=== PATIENT | male | born 1950 | race Caucasian/White ===

== ENCOUNTER → 2020-02-10 10:04 | Outpatient (BNVA) | payer MEDICARE, MEDICAID, SELFPAY | PROVIDERS: PCP Internal Medicine; Referring Provider Internal Medicine; Visit Provider Urology | DX: Z76.89 Persons encountering health services in other specified circumstances (principal) ==

== ENCOUNTER → 2020-08-11 11:47 | Outpatient (BNVA) | payer MEDICARE, MEDICAID, SELFPAY | PROVIDERS: PCP Internal Medicine; Visit Provider Urology | DX: Z13.89 Encounter for screening for other disorder (principal) | CPT/HCPCS: Q3014 ==

== ENCOUNTER → 2020-09-14 11:45 | Outpatient (BNVA) | payer MEDICARE, MEDICAID, SELFPAY | PROVIDERS: PCP Internal Medicine; Visit Provider Urology | DX: C61 Malignant neoplasm of prostate (principal); E29.1 Testicular hypofunction; R39.15 Urgency of urination; Z92.3 Personal history of irradiation | CPT/HCPCS: Q3014 ==

== ENCOUNTER → 2020-10-21 11:15 | Outpatient (BNVA) | payer MEDICARE, MEDICAID, SELFPAY | PROVIDERS: Visit Provider Urology | CPT/HCPCS: Q3014 ==

== ENCOUNTER → 2021-04-22 11:35 | Outpatient (BNVA) | payer MEDICARE, MEDICAID, SELFPAY | PROVIDERS: PCP Internal Medicine; Visit Provider Urology | DX: N30.40 Irradiation cystitis without hematuria (principal); C61 Malignant neoplasm of prostate | CPT/HCPCS: Q3014 ==

== ENCOUNTER 2021-05-03 08:52 | Outpatient (RCR) | payer MEDICARE, MEDICAID, SELFPAY | END 2021-06-22 10:14 | disposition home or self-care (01) | LOC: HO.WCC 08:52 | PROVIDERS: PCP Internal Medicine; Visit Provider Physician Assistant | DX: N30.40 Irradiation cystitis without hematuria (principal); G62.9 Polyneuropathy, unspecified; Z85.46 Personal history of malignant neoplasm of prostate; Z87.891 Personal history of nicotine dependence | CPT/HCPCS: 99213 ==

== ENCOUNTER → 2021-06-01 14:43 | Outpatient (BNVA) | payer MEDICARE, MEDICAID, SELFPAY | PROVIDERS: PCP Internal Medicine; Visit Provider Urology | DX: N42.89 Other specified disorders of prostate (principal); N30.40 Irradiation cystitis without hematuria; R39.15 Urgency of urination; Z85.46 Personal history of malignant neoplasm of prostate | CPT/HCPCS: 52000; 99212 ==

== ENCOUNTER → 2021-07-19 12:02 | Outpatient (BNVA) | payer MEDICARE, MEDICAID, SELFPAY | PROVIDERS: PCP Internal Medicine; Visit Provider Urology | DX: N42.89 Other specified disorders of prostate (principal) | CPT/HCPCS: Q3014 ==

== ENCOUNTER 2021-07-25 06:35 | Day surgery (SDC) | payer MEDICARE, MEDICAID, SELFPAY ==
[2021-07-15 14:42] VITALS: BMI 36.9
--- NOTE | 2021-07-22 09:18 | P.CONAN_ITS ---
Documented by User: Paula Jorge NP 07/22/21 09:19 HPI - Anesthesia Eval Consult details Narrative: 71yo M for Cystoscopy DVIU Chronic opioids PMFSH Active Problems Active Problems: All Active Problems (Updated 06/01/21 @ 15:24 by Theo Hutchins MD) Prostate cancer (Acute) Hypogonadism in male (Acute) Urinary urgency (Acute) Radiation cystitis (Acute) Prostate stricture (Acute) Past Medical History Medical History Acute bilateral low back pain without sciatica BPH (benign prostatic hyperplasia) Chronic back pain Dysuria Elevated PSA Erectile dysfunction GERD (gastroesophageal reflux disease) Hyperlipidemia Hypogonadism in male Hypothyroidism Nocturia OA (osteoarthritis) Prostate cancer Prostatitis Recurrent urinary tract infection Sleep apnea Surgical History Surgical History History of prostate surgery Hx of arthroscopy of knee Hx of hernia repair Hx of prostate biopsy Social History Social History Patient Tobacco Use Status: Former Tobacco user Are you DNR?: No Advance Directives: No Advance Directives Information Provided: Yes Meds Allergies Allergy/AdvReac Type Severity Reaction Status Date / Time codeine [Tylenol-Codeine #3] Allergy Mild unknown Verified 07/19/21 12:03 Iodinated Contrast Media Allergy Mild HIVES Verified 07/19/21 12:03 [IV CONTRAST] Home Medications Medication Instructions Recorded Confirmed Last Taken Type carisoprodol 350 mg tablet 350 mg PO BID PRN 08/11/20 07/15/21 Unknown History fluticasone propionate 50 1 spray INTRANASAL DAILY 08/11/20 07/15/21 Unknown History mcg/actuation nasal spray,suspension hydrocodone 10 mg-acetaminophen 1 tab PO QID PRN 08/11/20 07/15/21 Unknown History 325 mg tablet hydroxyzine pamoate 25 mg capsule 25 mg PO DAILY PRN 08/11/20 07/15/21 Unknown History levothyroxine 112 mcg tablet 224 mcg PO QAM 08/11/20 07/15/21 07/25/21 History omeprazole 40 mg capsule,delayed 40 mg PO DAILY 08/11/20 07/15/21 Unknown History release zolpidem 10 mg tablet 10 mg PO BEDTIME PRN 08/11/20 07/15/21 Unknown History albuterol sulfate 90 mcg/actuation 1 puff PO QID PRN 09/14/20 07/15/21 Unknown History aerosol inhaler amoxicillin 875 mg-potassium 1 tab PO BID 09/14/20 10/21/20 Unknown History clavulanate 125 mg tablet celecoxib 200 mg capsule 200 mg PO BID 09/14/20 07/15/21 Unknown History prednisone 20 mg tablet 60 mg PO DAILY 09/14/20 07/15/21 Unknown History doxepin 10 mg capsule 10 mg PO BEDTIME 06/01/21 07/15/21 Unknown History Exam Exam Date and Time: July 22, 2021 0918 Height,Weight and Vital Signs: Height 5 ft 11 in Weight 120.202 kg Assessment and Plan Assessment Anesthesia Assessment: Chart Reviewed Documented by User: Yeni Wray MD 07/25/21 07:23 [facility] Past Medical History Medical History Acute bilateral low back pain without sciatica BPH (benign prostatic hyperplasia) Chronic back pain Dysuria Elevated PSA Erectile dysfunction GERD (gastroesophageal reflux disease) Hyperlipidemia Hypogonadism in male Hypothyroidism Nocturia OA (osteoarthritis) Prostate cancer Prostatitis Recurrent urinary tract infection Sleep apnea Family History Family history of problems with anesthesia: No Surgical History Surgical History History of prostate surgery Hx of arthroscopy of knee Hx of hernia repair Hx of prostate biopsy History of Problems with Anesthesia: No Social History Social History Patient Tobacco Use Status: Former Tobacco user Are you DNR?: No Advance Directives: No Advance Directives Information Provided: Yes Meds Allergies Allergy/AdvReac Type Severity Reaction Status Date / Time codeine [Tylenol-Codeine #3] Allergy Mild unknown Verified 07/19/21 12:03 Iodinated Contrast Media Allergy Mild HIVES Verified 07/19/21 12:03 [IV CONTRAST] Home Medications Medication Instructions Recorded Confirmed Last Taken Type carisoprodol 350 mg tablet 350 mg PO BID PRN 08/11/20 07/15/21 Unknown History fluticasone propionate 50 1 spray INTRANASAL DAILY 08/11/20 07/15/21 Unknown History mcg/actuation nasal spray,suspension hydrocodone 10 mg-acetaminophen 1 tab PO QID PRN 08/11/20 07/15/21 Unknown History 325 mg tablet hydroxyzine pamoate 25 mg capsule 25 mg PO DAILY PRN 08/11/20 07/15/21 Unknown History levothyroxine 112 mcg tablet 224 mcg PO QAM 08/11/20 07/15/21 07/25/21 History omeprazole 40 mg capsule,delayed 40 mg PO DAILY 08/11/20 07/15/21 Unknown History release zolpidem 10 mg tablet 10 mg PO BEDTIME PRN 08/11/20 07/15/21 Unknown History albuterol sulfate 90 mcg/actuation 1 puff PO QID PRN 09/14/20 07/15/21 Unknown History aerosol inhaler amoxicillin 875 mg-potassium 1 tab PO BID 09/14/20 10/21/20 Unknown History clavulanate 125 mg tablet celecoxib 200 mg capsule 200 mg PO BID 09/14/20 07/15/21 Unknown History prednisone 20 mg tablet 60 mg PO DAILY 09/14/20 07/15/21 Unknown History doxepin 10 mg capsule 10 mg PO BEDTIME 06/01/21 07/15/21 Unknown History Exam Airway Mallampati Class: II TM Dist: >3cm Neck ROM: Full Denture: Upper and Lower Heart: rrr Lungs: cta Assessment and Plan Assessment Anesthesia Assessment: Anesthesia Plan Discussed and Chart Reviewed Final Anesthetic Review Family History of Problems with Anesthesia: No History of Problems with Anesthesia: No NPO: Yes ASA Class: III Final Preanesthetic Review: No Changes in Pt Med Stat, Meds/Allgs Chart Reviewed and Consent Obtained/Reviewed Patient Risk: Intermediate Procedure Risk: Intermediate Anesthetic Plan Anesthetic Plan: GA Disposition: Standard PACU
[2021-07-25 06:43] VITALS: BP 151/86; PULSE 69; RESP 18; TEMP 36; O2SAT 95
[2021-07-25] MEDS: Lactated Ringers 1,000 ML 100 ML IVCONT (07:11)
--- NOTE | 2021-07-25 08:38 | MHC.SHP ---
Pre-Procedural Eval Section A Date of Service: 07/25/21 The patient is an INPATIENT: No Changes since office visit: No Cold of Flu in the past 2 weeks, No New Medical Problems, No Changes in Medication and No Patient answered all questions The History & Physical has been completed within 30 days and I have reviewed it.: Yes Section B Chief Complaint: Other specified disorders of prostate Allergies: Allergies Allergy/AdvReac Type Severity Reaction Status Date / Time codeine [Tylenol-Codeine #3] Allergy Mild unknown Verified 07/19/21 12:03 Iodinated Contrast Media Allergy Mild HIVES Verified 07/19/21 12:03 [IV CONTRAST] Plan Diagnosis/Plan: Unchanged (prostate apex incision) I have reviewed the history and physical and performed a pertinent physical examination on my patient. No changes have occurred unless specified.
[2021-07-25 09:20] VITALS: BP 104/70; PULSE 76; RESP 16; TEMP 36.3; O2SAT 95
--- NOTE | 2021-07-25 09:20 | W.PM.OPN ---
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 Subsequent diagnosis of prostate cancer and external beam radiation completed approximately 3 years ago. Has had progressive weakness of stream. Cystoscopy in office showed apical prostatic stricture. Recommend DVIU given short length of stricture. Procedure: After informed consent was verified the patient was brought to the operating room and placed in a supine position. Anesthesia was administered per protocol. Safety pause time-out was performed confirming antibiotics. The patient was placed in a modified dorsal lithotomy position and prepped and draped sterile fashion. The DVIU cystoscope was inserted. A bulbar annual is stricture was found. Incision made at 12:00 o'clock and the scope was advanced. A 2nd stricture was found at the prostate apex. Again incision made at 12:00 o'clock allowing passage of scope into the bladder. Bladder was drained. Sensor guidewire was placed. A 20 [place] tip Phipps catheter placed over the wire into the bladder and 10 cc placed in the balloon. Patient tolerated the procedure well was extubated in the operating room and transferred in stable condition to recovery area. Catheter will stay 3-4 days Pathology: none Drains: 20 Indonesian Phipps catheter
[2021-07-25 09:35] VITALS: BP 115/77; PULSE 71; RESP 16; O2SAT 96
[2021-07-25] MEDS: Phenazopyridine HCL 100 MG TABLET PO (09:42)
[2021-07-25 09:50] VITALS: BP 114/76; PULSE 64; RESP 16; TEMP 36.3; O2SAT 96
[2021-07-25] MEDS: oxyCODONE HCl Immed Release 5 MG TABLET PO (09:52)
[2021-07-25] MEDS: Acetaminophen 325 MG TABLET 650 MG PO (09:53)
== END 2021-07-25 10:35 | disposition home or self-care (01) ==
PROVIDERS: PCP Internal Medicine; Visit Provider Urology
PROC: 0TJB8ZZ Inspection of Bladder, Via Natural or Artificial Opening Endoscopic (ICD-10-PCS; CPT 52000; principal; 2021-07-25 08:10)
DX: N42.89 Other specified disorders of prostate (principal); N35.912 Unspecified bulbous urethral stricture, male; N40.1 Benign prostatic hyperplasia with lower urinary tract symptoms; R39.12 Poor urinary stream; R35.1 Nocturia; R30.0 Dysuria; N30.40 Irradiation cystitis without hematuria; N52.9 Male erectile dysfunction, unspecified; N39.0 Urinary tract infection, site not specified; Z85.46 Personal history of malignant neoplasm of prostate; Z92.3 Personal history of irradiation; G89.29 Other chronic pain; M54.50 Low back pain, unspecified; G47.33 Obstructive sleep apnea (adult) (pediatric); Z88.8 Allergy status to other drugs, medicaments and biological substances; Z91.041 Radiographic dye allergy status; Z87.891 Personal history of nicotine dependence; Z79.899 Other long term (current) drug therapy
CPT/HCPCS: 52276; J1956; J2250; J2405; J3010

== ENCOUNTER → 2021-10-27 09:59 | Outpatient (BNVA) | payer MEDICARE, MEDICAID, SELFPAY | PROVIDERS: PCP Internal Medicine; Visit Provider Urology | DX: C61 Malignant neoplasm of prostate (principal); E29.1 Testicular hypofunction; N42.89 Other specified disorders of prostate; N32.81 Overactive bladder | CPT/HCPCS: 99212 ==

== ENCOUNTER → 2022-04-26 13:39 | Outpatient (BNVA) | payer MEDICARE, MEDICAID, SELFPAY | PROVIDERS: PCP Internal Medicine; Visit Provider Urology | DX: C61 Malignant neoplasm of prostate (principal); E29.1 Testicular hypofunction; R39.15 Urgency of urination; N30.40 Irradiation cystitis without hematuria | CPT/HCPCS: Q3014 ==

== ENCOUNTER 2022-08-04 11:06 | Outpatient (REF) | payer MEDICARE, MEDICAID, SELFPAY | END 2022-08-04 11:07 | disposition home or self-care (01) | LOC: HO.LNP 11:06 | PROVIDERS: PCP Internal Medicine; Visit Provider Nurse Practitioner Family | DX: R39.15 Urgency of urination (principal); E29.1 Testicular hypofunction; C61 Malignant neoplasm of prostate; N30.40 Irradiation cystitis without hematuria | CPT/HCPCS: 87086; 87088; 87186; 99212 ==

== ENCOUNTER 2022-09-19 09:54 | Outpatient (REF) | payer MEDICARE, MEDICAID, SELFPAY ==
--- NOTE | ~2022-09-19 | US_ITS ---
EXAMINATION: US RETROPERITONEAL COMPLETE (RENAL) CLINICAL INFORMATION: Irradiation cystitis without hematuria. COMPARISON: None available. TECHNIQUE: Real-time imaging of the kidneys and bladder. FINDINGS: RIGHT KIDNEY: 11.5 x 6.0 x 5.8 cm (SAG x AP x TRV). The kidney is normal in size, contour, and echogenicity. Renal cortical thickness is normal. No renal calculi or hydronephrosis. 7 mm simple cyst in the lower pole. 1.2 cm simple cyst in the lower pole. No follow-up imaging is recommended. LEFT KIDNEY: 12.4 x 5.9 x 5.4 cm (SAG x AP x TRV). The kidney is normal in size, contour, and echogenicity. Renal cortical thickness is normal. No renal calculi or hydronephrosis. 6 mm simple cyst in the lower pole. No follow-up imaging is recommended. BLADDER: Well distended and normal. Bilateral ureteral jets are demonstrated. Prevoid bladder volume is 229 mL. Postvoid bladder volume is 88.7 mL. Enlarged prostate, volume 39.4 mL. US/US retroperitoneal comp IMPRESSION: Enlarged prostate. No hydronephrosis. Post void bladder residual 89 mL.
[2022-09-19 11:49] LABS: Appearance Urine Clear; Color Urine Yellow; Glucose Urine UA Negative (Negative); Leukocyte Esterase Urine Negative (Negative); Nitrite Urine Negative (Negative); Specific Gravity - Urine 1.015 (1.005-1.025); Urine Blood Negative (Negative); Urine Ketones Negative (Negative); Urine Protein Negative (Neg-Trace)
[2022-09-19 11:53] LABS: Bacteria Urine None Seen (None Seen); Hyaline Casts Urine 0-2 /LPF (0-2); RBC Urine 0-2 /HPF (0-2); Squamous Epithelial Cell Urine 0-2 /HPF (0-2); WBC Urine 0-5 /HPF (0-5)
[2022-09-19 12:13] LABS: Prostate Specific Antigen 0.28 ng/mL (<0.05-4.0)
[2022-09-23 14:49] LABS: Testosterone, Total 277 ng/dL (250-1100)
[2022-09-23 17:34] LABS: Testosterone, Free 38.2 pg/mL (30.0-135.0); Testosterone, Total 279 ng/dL (250-1100)
== END 2022-09-19 09:55 | disposition home or self-care (01) ==
LOC: HO.US 09:54
PROVIDERS: Absent Provider Urology; PCP Internal Medicine; Visit Provider Nurse Practitioner Family
DX: Z12.5 Encounter for screening for malignant neoplasm of prostate (principal); N30.40 Irradiation cystitis without hematuria; R39.15 Urgency of urination; E29.1 Testicular hypofunction; C61 Malignant neoplasm of prostate
CPT/HCPCS: 36415; 76770; 81001; 84153; 84402; 84403; 87086

== ENCOUNTER 2022-09-25 09:53 | Outpatient (AMB) | payer MEDICARE, MEDICAID, SELFPAY ==
--- NOTE | 2022-09-25 09:59 | A.OFFVIS_ITS ---
Intake Intake Visit Reasons: follow up/US/labs Intake Note: Patient presents follow up ultrasound/labs (imaging 09/19) Urology Medications: myrbetriq, testosterone Blood Thinner: none PVR: 30ml Study Manager Required: No Accompanied by: Self / Same As Patient Allergies codeine [Tylenol-Codeine #3] Allergy (Mild, Verified 09/25/22 20:25) unknown Iodinated Contrast Media [IV CONTRAST] Allergy (Mild, Verified 09/25/22 20:25) HIVES Medication List - Last Reconciled 09/25/22 by TJ Rodriguez- albuterol sulfate 90 mcg/actuation 1 puff PO QID PRN carisoprodol 350 mg PO BID PRN diclofenac sodium 1% 4 grams topical TID doxepin 10 mg PO BEDTIME fluticasone propionate 50 mcg/actuation 1 spray intranasal DAILY hydroxyzine pamoate 25 mg PO DAILY PRN levothyroxine 200 mcg PO QAM mirabegron ER 25 mg PO DAILY 90 days omeprazole 40 mg PO DAILY PRN testosterone 50 mg transdermal DAILY 30 days zolpidem 10 mg PO BEDTIME PRN HPI HPI Comments History of Present Illness Details Ralph is a very pleasant 72-year-old male patient of Dr. Hernández. He has a past medical history of chronic back pain, ED, GERD, hyperlipidemia, hypothyroidism, nocturia, osteoarthritis, prostatitis, recurrent urinary tract infections, and sleep apnea. He presents to the office today for follow-up. Of note, patient was seen approximately 2 months ago at which time a retroperitoneal, PSA, and testosterone ordered for further assessment evaluation. These results were reviewed with the patient today. Right kidney with no calculi or hydronephrosis. 7 mm simple cyst in the lower pole and 1.2 cm simple cyst in the lower pole per radiology report no follow-up imaging is recommended. Left kidney with no calculi or hydronephrosis. 6 mm simple cyst in the lower pole with no follow-up imaging recommended per radiology report. The bladder is well distended and normal. Pre void bladder volume is approximately 230 mL. Postvoid bladder volume is approximately 90 mL. Prostate volume is approximately 40 mL. Labs: 10/11 PSA: 0.3 Total testosterone: 279 Free testosterone: 38.2 Of note, patient also follows up with Dr. 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 When asked patient reports to be doing and feeling well. He does endorse to having intermittent issues with dysuria however he discusses this is not a new symptom and relates it to his radiation cystitis. During last office visit urine was sent for urine culture for further assessment evaluation. No growth noted. These results were reviewed with the patient today. He otherwise reports to be happy with his current voiding parameters on 25 mg of Myrbetriq daily. In office urinalysis results reviewed with the patient today. PVR 30 mL. Patient discusses he would like to continue with his topical testosterone as prescribed. He otherwise offers no issues or concerns at this time. During Last office visit 05/11 PSA 04/13 0.4 T 610 Prostate Cancer: [place] 3 + 4, XRT with short-term hormones 2015 Prostate cancer was diagnosed [address] Tai. Diagnosis was reached by needle biopsy, for elevated PSA. The [place] grade is January 2010 left apex microscopic focus [place] 3+3 . March 2011 negative biopsy April 2012 left apex [place] 3+3 one core 5% September 2014 [place] 3+3 2 cores middle left 20% Volume 95 cc. September 2015 TURP Gl 3+4 in tissue 35%. TNM Classification of Malignant Tumours (TNM) T1a. The D'Kael (NCCN) risk category is Intermediate Risk (PSA 10-20, Gl 7, T2). Initial therapy included Primary treatment, Deferred Therapy (active surveillance) Additional treatment - recommend radiation Sep 2015 start bicalutamide, November 23 2015 - GnRH shot Additional treatment Mar 2016 - stopped oxybutinin and bicalutamide , Additional treatment completed radiation April 2016 , Additional treatment, 12/05 Observation - off 5AR. Recent labs included a PSA (prostate-specific antigen) October 2009 6 .7, December 2009 7.0, September 2010 8.8, in February 2011 11, March 2012 19.5 finasteride started, November 2012 8.9, April 2014 10.6, April 2015 13.5 - bicalutamide started Oct 2015 4.25 July 2016 < 0.1, 12/05 , a PSA (prostate-specific antigen), < 0.1, a testosterone 56 04/08 , a PSA (prostate-specific antigen), < 0.1, a testosterone 111, 08/06 , a PSA (prostate-specific antigen) .2, , a testosterone 124, 12/06 PSA 0.3 T 362 2 PSA 0.3, T 270, 09/06 PSA 0.5 T 175 03/10 PSA 0.5 T 477, 07/08 PSA 0.5 T 560, 02/07 PSA 0.4 - 08/09 PSA 0.5, T 730, 04/12 P 0.6, T 260, 10/10 P 0.6 T 212, 10/11 P 0.3 T 279. Recent imaging included an MRI (magnetic resonance imaging) May 2015 , showing prostatic mass(es) hyperpalsia vs tumor, no evidence of extracapsular spread, I have reviewed the images - Sep 2015 , a bone scan NAD. Associated conditions erectile dysfunction Yes rectal urgency Yes Occasional Therapeutic plan: Remain on T therapy. Current symptoms include Overactive bladder July 2020 trial Flomax - failed prior therapy oxybuytin, vesicare Hypogonadism T did not recover after radiation does response to AndroGel 2 doses PFS Medical History (Reviewed 09/25/22 @ 20:38 by ALEXANDER RodriguezFORMERLY [facility] Acute bilateral low back pain without sciatica BPH (benign prostatic hyperplasia) Chronic back pain Dysuria Elevated PSA Erectile dysfunction GERD (gastroesophageal reflux disease) Hyperlipidemia Hypogonadism in male Hypothyroidism Nocturia OA (osteoarthritis) Prostate cancer Prostatitis Recurrent urinary tract infection Sleep apnea Surgical History History of prostate surgery Hx of arthroscopy of knee Hx of hernia repair Hx of prostate biopsy Social History Patient Tobacco Use Status: Former Tobacco user Review of Systems Const Reports as per HPI Eyes Reports no additional complaints ENT Reports no additional complaints Card Reports as per HPI Resp Reports no additional complaints GI Reports as per HPI Reports as per HPI Musc Reports as per HPI Neuro Reports no additional complaints Psych Reports no additional complaints Endo Reports no additional complaints Nabor/Lymph Reports no additional complaints Aller/Immun Reports no additional complaints Physical Exam Const General: cooperative, comfortable, no acute distress, well developed, alert and awake Orientation/consciousness: patient oriented x3 Limitations: ambulation with cane HEENT Head: Yes normal to inspection, Yes normocephalic and Yes atraumatic Ears: hearing grossly normal bilaterally Eyes General: appearance normal, both eyes and all related structures Neck Neck: Yes normal visual inspection and Yes trachea midline Chest Chest palpation & inspection: normal inspection of the chest Resp Effort & Inspection: normal respiratory effort and able to speak in complete sentences Cardio Rate: regular rate GI Inspection: Yes normal to inspection General: Yes no CVA tenderness Back/Spine/Pelvis Back: no CVA tenderness Skin General skin exam: no rashes or lesions noted Neuro General: patient oriented x3 Extrem General: Yes normal to inspection Psych Appearance: grossly normal and well kempt Mental Status: mental status grossly normal Speech and movement: Normal speech and movement present and Clear speech present Affect: normal affect Attitude: cooperative Thought process: Normal thought process present Thought content: Normal thought content present Insight: Good insight present (Psych) Judgement: Good judgement present (Psych) Office Procedures Post Void Residual Post Residual Void Post Void Residual (PVR): 30 97487-Porb Void Residual by ultrasound Results AMB Urinalysis, Automated UA Leukoctes 0 Skinny/uL Last Edit by Bioparaiso on 09/25/22 10:37 UA Nitrite Last Edit by Bioparaiso on 09/25/22 10:37 UA Urobilinogen 0.2 mg/dL Last Edit by Bioparaiso on 09/25/22 10:37 UA Protein 15 mg/dL Last Edit by Bioparaiso on 09/25/22 10:37 UA pH 6.0 Last Edit by Bioparaiso on 09/25/22 10:37 UA Blood 0 Antonio/uL Last Edit by Bioparaiso on 09/25/22 10:37 UA Specific [place] 1.030 Last Edit by Bioparaiso on 09/25/22 10:37 UA Ketone Negative Last Edit by Bioparaiso on 09/25/22 10:37 UA Bilirubin 1 mg/dL Last Edit by Bioparaiso on 09/25/22 10:37 UA Glucose 0 mg/dL Last Edit by Bioparaiso on 09/25/22 10:37 Results Reviewed Results Reviewed: Laboratory Last Values Urine pH (Auto) 6.0 09/25/22 10:01 Specific [place] (Auto) 1.030 09/25/22 10:01 Urine Protein (Auto) 15 mg/dL 09/25/22 10:01 Glucose (UA)(Auto) 0 mg/dL 09/25/22 10:01 Urine Ketones (Auto) Negative 09/25/22 10:01 Urine Blood (Auto) 0 Antonio/uL 09/25/22 10:01 Urine Bilirubin (Auto) 1 mg/dL 09/25/22 10:01 Urine Urobilinogen (Auto) 0.2 mg/dL 09/25/22 10:01 Leukocyte Esterase (Auto) 0 Skinny/uL 09/25/22 10:01 Date of Service: 09/19/22 EXAMINATION: US RETROPERITONEAL COMPLETE (RENAL) FINDINGS: RIGHT KIDNEY: 11.5 x 6.0 x 5.8 cm (SAG x AP x TRV). The kidney is normal in size, contour, and echogenicity. Renal cortical thickness is normal. No renal calculi or hydronephrosis. 7 mm simple cyst in the lower pole. 1.2 cm simple cyst in the lower pole. No follow-up imaging is recommended. LEFT KIDNEY: 12.4 x 5.9 x 5.4 cm (SAG x AP x TRV). The kidney is normal in size, contour, and echogenicity. Renal cortical thickness is normal. No renal calculi or hydronephrosis. 6 mm simple cyst in the lower pole. No follow-up imaging is recommended. BLADDER: Well distended and normal. Bilateral ureteral jets are demonstrated. Prevoid bladder volume is 229 mL. Postvoid bladder volume is 88.7 mL. Enlarged prostate, volume 39.4 mL. IMPRESSION: Enlarged prostate. No hydronephrosis. Post void bladder residual 89 mL. Assessment & Plan Assessment & Plan (1) Prostate cancer: Code(s): C61 - Malignant neoplasm of prostate (2) Hypogonadism in male: Code(s): E29.1 - Testicular hypofunction (3) Radiation cystitis: Code(s): N30.40 - Irradiation cystitis without hematuria Plan In office urinalysis results reviewed with the patient today. PVR 30 mL. Recent retroperitoneal ultrasound results reviewed with the patient today; as noted above Recent PSA and testosterone results reviewed with the patient today; as noted above. Continue Myrbetriq 25 mg daily as patient reports to be happy with current voiding parameters. Continue testosterone as discussed and prescribed. Educated, instructed, encouraged to continue drinking plenty of water daily. PSA and testosterone in 6 months. Follow-up in 6 months with labs to be completed prior; or sooner with any issues, concerns, and or questions. Orders: Orders Prostate Specific Antigen 6 Months C61 - Malignant neoplasm of prostate, E29.1 - Testicular hypofunction Testosterone, Free/Total 6 Months C61 - Malignant neoplasm of prostate, E29.1 - Testicular hypofunction AMB Urinalysis Automated Today Z13.9 - Encounter for screening, unspecified AMB Post Void Residual by ultrasound Today R39.15 - Urgency of urination Medications: Discontinued nitrofurantoin macrocrystal must administer with a meal/food Discontinued Reason: Patient Completed Course 100 mg PO BID 14 days 28 caps 0RF Patient Instructions: The patient had an opportunity to ask questions regarding the treatment plan. All questions were answered. Physical exam, labs, and imaging were discussed and reviewed in detail. As well as risks, benefits, and discussion of treatment choices. No major barriers to understanding were identified. The patient e xpressed understanding and agreement with the above treatment plan. The patient was made aware they should contact our office by phone for worsening of their current condition, the appearance of new symptoms, or with any questions or concerns. Compliance is encouraged with any medications and follow up testing that is ordered. It is a privilege to be allowed the opportunity to participate in? your urological care.? Again, if you have any questions or concerns If you have any questions or concerns please do not hesitate to contact me. The office is [phone]. This note is constructed using voice recognition software. While every effort has been made to ensure accuracy claims consultant errors may have been included. Yours sincerely, FRANCIA Rodriguez Coding Level of Care Code Est Pt Level 3 (47643) Diagnoses Prostate cancer C61 Hypogonadism in male E29.1 Radiation cystitis N30.40 CPT Codes Post Residual Void - PVR CPT Code: 64062-Zmdd Void Residual by ultrasound ([id number])
== END 2022-09-25 10:52 | disposition home or self-care (01) ==
PROVIDERS: PCP Internal Medicine; Visit Provider Nurse Practitioner Family
DX: C61 Malignant neoplasm of prostate (principal); E29.1 Testicular hypofunction; N30.40 Irradiation cystitis without hematuria
CPT/HCPCS: 99213

== ENCOUNTER → 2022-09-25 09:53 | Outpatient (BNVA) | payer MEDICARE, MEDICAID, SELFPAY | PROVIDERS: PCP Internal Medicine; Visit Provider Nurse Practitioner Family | DX: C61 Malignant neoplasm of prostate (principal); E29.1 Testicular hypofunction; R39.15 Urgency of urination; N52.1 Erectile dysfunction due to diseases classified elsewhere; R35.1 Nocturia; N30.40 Irradiation cystitis without hematuria; Z79.899 Other long term (current) drug therapy | CPT/HCPCS: 51798; 99212 ==

== ENCOUNTER 2023-04-10 13:40 | Outpatient (AMB) | payer MEDICARE, MEDICAID, SELFPAY ==
--- NOTE | 2023-04-10 13:41 | MHC.OFFVIS ---
Intake Intake Visit Reasons: F/U Labs Intake Note: Patient presents today for follow up prostate cancer, hypogonadism, and labs PSA: 0.5 Testosterone: 315 Free Testosterone: 6.81 Urology Medications: myrbetriq, testosterone Blood Thinner: None [employer] Supervisor Required: No Allergies codeine [Tylenol-Codeine #3] Allergy (Mild, Verified 04/10/23 15:05) unknown Iodinated Contrast Media [IV CONTRAST] Allergy (Mild, Verified 04/10/23 15:05) HIVES Medication List - Last Reconciled 04/10/23 by TJ Rodriguez- albuterol sulfate 90 mcg/actuation 1 puff PO QID PRN carisoprodol 350 mg PO BID PRN diclofenac sodium 1% 4 grams topical TID doxepin 10 mg PO BEDTIME fluticasone propionate 50 mcg/actuation 1 spray intranasal DAILY PRN hydroxyzine pamoate 25 mg PO DAILY PRN levothyroxine 200 mcg PO QAM mirabegron ER 25 mg PO DAILY 90 days omeprazole 40 mg PO DAILY PRN testosterone 50 mg transdermal DAILY 30 days zolpidem 10 mg PO BEDTIME PRN HPI HPI Comments History of Present Illness Details Ralph is a very pleasant 72-year-old male patient of Dr. Hernández. He has a past medical history of chronic back pain, ED, GERD, hyperlipidemia, hypothyroidism, nocturia, osteoarthritis, prostatitis, recurrent urinary tract infections, and sleep apnea. He is being followed up on today via video telehealth for his history of prostate cancer, hypogonadism, and lower urinary tract symptoms. In discussion with the patient today he reports to be doing and feeling well. Recent labs reviewed and trended with the patient below. PSA: 04/13 0.4, 10/11 0.3, 04/14 0.5 Total testosterone: 04/13 610, 10/11 279, 04/14 315 Free testosterone: 10/11 38.2, 04/14 6.81 Previous workup has included a retroperitoneal ultrasound noting right kidney with no calculi or hydronephrosis. 7 mm simple cyst in the lower pole and 1.2 cm simple cyst in the lower pole per radiology report no follow-up imaging is recommended. Left kidney with no calculi or hydronephrosis. 6 mm simple cyst in the lower pole with no follow-up imaging recommended per radiology report. The bladder is well distended and normal. Pre void bladder volume is approximately 230 mL. Postvoid bladder volume is approximately 90 mL. Prostate volume is approximately 40 mL. He reports to be following up with PCP regarding ongoing sleep apnea issues. He reports having trialed four different CPAP machines and has been unsuccessful in attempts to finding a machine that works for him. He reports getting referral for further assessment for nuerostimulation for sleep apnea. He also reports having 2 episodes of stress incontinence since his last office visit here however he does feel Myrbetriq has been helpful with his symptoms of urinary frequency and urinary urgency. He otherwise reports be happy with current voiding parameters. He reports compliance with topical testosterone as prescribed. He otherwise offers no issues or concerns at this time. Prostate Cancer: [place] 3 + 4, XRT with short-term hormones 2015 Prostate cancer was diagnosed [address] Tai. Diagnosis was reached by needle biopsy, for elevated PSA. The [place] grade is January 2010 left apex microscopic focus [place] 3+3 . March 2011 negative biopsy April 2012 left apex [place] 3+3 one core 5% September 2014 [place] 3+3 2 cores middle left 20% Volume 95 cc. September 2015 TURP Gl 3+4 in tissue 35%. TNM Classification of Malignant Tumours (TNM) T1a. The D'Kael (NCCN) risk category is Intermediate Risk (PSA 10-20, Gl 7, T2). Initial therapy included Primary treatment, Deferred Therapy (active surveillance) Additional treatment - recommend radiation Sep 2015 start bicalutamide, November 23 2015 - GnRH shot Additional treatment Mar 2016 - stopped oxybutinin and bicalutamide , Additional treatment completed radiation April 2016 , Additional treatment, 12/05 Observation - off 5AR. Recent labs included a PSA (prostate-specific antigen) October 2009 6.7, December 2009 7.0, September 2010 8.8, in February 2011 11, March 2012 19.5 finasteride started, November 2012 8.9, April 2014 10.6, April 2015 13.5 - bicalutamide started Oct 2015 4.25 July 2016 < 0.1, 12/05 , a PSA (prostate-specific antigen), < 0.1, a testosterone 56 04/08 , a PSA (prostate-specific antigen), < 0.1, a testosterone 111, 08/06 , a PSA (prostate-specific antigen) .2, , a testosterone 124, 12/06 PSA 0.3 T 362 04/09 PSA 0.3, T 270, 09/06 PSA 0.5 T 175 03/10 PSA 0.5 T 477, 07/08 PSA 0.5 T 560, 02/07 PSA 0.4 - 08/09 PSA 0.5, T 730, 04/12 P 0.6, T 260, 10/10 P 0.6 T 212, 10/11 P 0.3 T 279. Recent imaging included an MRI (magnetic resonance imaging) May 2015 , showing prostatic mass(es) hyperpalsia vs tumor, no evidence of extracapsular spread, I have reviewed the images - Sep 2015 , a bone scan NAD. Associated conditions erectile dysfunction Yes rectal urgency Yes Occasional Therapeutic plan: Remain on T therapy. Current symptoms include Overactive bladder July 2020 trial Flomax - failed prior therapy oxybuytin, vesicare Hypogonadism T did not recover after radiation does response to AndroGel 2 doses Obesity PFSH Medical History Recurrent urinary tract infection Prostatitis OA (osteoarthritis) Sleep apnea Hyperlipidemia GERD (gastroesophageal reflux disease) Chronic back pain Hypothyroidism Acute bilateral low back pain without sciatica Hypogonadism in male Dysuria Nocturia Elevated PSA BPH (benign prostatic hyperplasia) Erectile dysfunction Prostate cancer Surgical History History of prostate surgery Hx of arthroscopy of knee Hx of prostate biopsy Hx of hernia repair Social History Patient Tobacco Use Status: Former Tobacco user Review of Systems Const Reports as per HPI Eyes Reports no additional complaints ENT Reports no additional complaints Card Reports as per HPI Resp Reports no additional complaints GI Reports as per HPI Reports as per HPI Musc Reports as per HPI Neuro Reports no additional complaints Psych Reports no additional complaints Endo Reports no additional complaints Nabor/Lymph Reports no additional complaints Aller/Immun Reports no additional complaints Physical Exam Const General: cooperative, healthy appearing, comfortable, no acute distress, well developed, alert and awake Orientation/consciousness: patient oriented x3 HEENT Ears: hearing grossly normal bilaterally Resp Effort & Inspection: normal respiratory effort and able to speak in complete sentences Neuro General: patient oriented x3 Psych Appearance: grossly normal and well kempt Mental Status: mental status grossly normal Speech and movement: Clear speech present Affect: normal affect Attitude: cooperative Thought process: Normal thought process present Thought content: Normal thought content present Insight: Fair insight present (Psych) Judgement: Fair judgement present (Psych) Assessment & Plan Assessment & Plan (1) Prostate cancer: Code(s): C61 - Malignant neoplasm of prostate (2) Hypogonadism in male: Code(s): E29.1 - Testicular hypofunction Plan Recent PSA and testosterone results reviewed with the patient today; as noted above. Continue testosterone and Myrbetriq as discussed and prescribed; refills provided. Patient currently denies any bothersome urinary issues or concerns. He is happy with current voiding parameters on 25 mg of Myrbetriq daily. Continue to follow-up with PCP regarding referral for further assessment evaluation of sleep apnea. Will obtain PSA and testosterone in 4 months. Follow-up in 4 months with labs to be completed prior; or sooner with any issues, concerns, and or questions. Orders: Orders Prostate Specific Antigen 4 Months C61 - Malignant neoplasm of prostate, E29.1 - Testicular hypofunction Testosterone, Free/Total 4 Months C61 - Malignant neoplasm of prostate, E29.1 - Testicular hypofunction Medications: Refilled testosterone apply 1 packet daily 50 mg transdermal DAILY 30 days 150 grams 5RF E29.1 - Testicular hypofunction mirabegron ER 25 mg PO DAILY 90 days 90 tabs 1RF N32.81 - Overactive bladder, R39.15 - Urgency of urination Patient Instructions: The patient had an opportunity to ask questions regarding the treatment plan. All questions were answered. Physical exam, labs, and imaging were discussed and reviewed in detail. As well as risks, benefits, and discussion of treatment choices. No major barriers to understanding were identified. The patient expressed understanding and agreement with the above treatment plan. The patient was made aware they should contact our office by phone for worsening of their current condition, the appearance of new symptoms, or with any questions or concerns. Compliance is encouraged with any medications and follow up testing that is ordered. It is a privilege to be allowed the opportunity to participate in? your urological care.? Again, if you have any questions or concerns If you have any questions or concerns please do not hesitate to contact me. The office is [phone]. This note is constructed using voice recognition software. While every effort has been made to ensure accuracy commercial credit specialist errors may have been included. Yours sincerely, FRANCIA Rodriguez Telehealth Telehealth Location of provider rendering services: practice address Location of patient: address on file Patient Identification confirmed using: Name, : Yes Telehealth method: video Patient verbally consented to treatment: Yes Patient verbally consented to billing insurance company: Yes Patient informed of any privacy concerns related to visit: Yes Minutes spent on Phone/Video with Pt.: 15 Coding Level of Care Code Tele Est Pt Level 3 (54516) Diagnoses Prostate cancer C61 Hypogonadism in male E29.1
== END 2023-04-10 14:28 | disposition home or self-care (01) ==
LOC: HO.HUSH 13:40
PROVIDERS: PCP Internal Medicine; Visit Provider Nurse Practitioner Family
DX: C61 Malignant neoplasm of prostate (principal); E29.1 Testicular hypofunction
CPT/HCPCS: 99213

== ENCOUNTER → 2023-04-10 13:40 | Outpatient (BNVA) | payer MEDICARE, MEDICAID, SELFPAY | PROVIDERS: PCP Internal Medicine; Visit Provider Nurse Practitioner Family ==

== ENCOUNTER 2023-08-13 08:40 | Outpatient (AMB) | payer MEDICARE, MEDICAID, SELFPAY ==
--- NOTE | 2023-08-13 08:35 | A.OFFVIS_ITS ---
Intake Visit Reasons: 4M F/U LABS(set) Intake Note: Patient presents today for follow up on: prostate cancer, hypogonadism, OAB and labs PSA: 0.4 Testosterone: 443.5 Free Testosterone: 4.7 Urology Medications: myrbetriq, testosterone Blood Thinner: None Office Helper Required: No Accompanied by: Self / Same As Patient Allergies codeine [Tylenol-Codeine #3] Allergy (Mild, Verified 08/13/23 20:45) unknown Iodinated Contrast Media [IV CONTRAST] Allergy (Mild, Verified 08/13/23 20:45) HIVES Medication List - Last Reconciled 08/13/23 by TJ Rodriguez- albuterol sulfate 90 mcg/actuation 1 puff PO QID PRN carisoprodol 350 mg PO BID PRN doxepin 10 mg PO BEDTIME fluticasone propionate 50 mcg/actuation 1 spray intranasal DAILY PRN hydroxyzine pamoate 25 mg PO DAILY PRN levothyroxine 200 mcg PO QAM mirabegron ER 25 mg PO DAILY 90 days omeprazole 40 mg PO DAILY PRN testosterone 50 mg transdermal DAILY 30 days zolpidem 10 mg PO BEDTIME PRN HPI Comments Details: Ralph is a very pleasant 73-year-old male patient of Dr. Hernández. He has a past medical history of chronic back pain, ED, GERD, hyperlipidemia, hypothyroidism, nocturia, osteoarthritis, prostatitis, recurrent urinary tract infections, and sleep apnea. He presents to the office today for follow-up of his prostate cancer, hypogonadism, and lower urinary tract symptoms. In discussion with the patient today he reports to be doing and feeling well. He currently denies any bothersome urinary issues or concerns. He reports feeling extremely happy with his current voiding parameters on 25 mg of Myrbetriq. He reports episodes of urinary urgency and frequency throughout the day have significantly improved however he does continue with episodes of nocturia at times up to 3 times per night. Recent labs reviewed with the patient today as noted and trended below. PSA: 04/13 0.4, 10/11 0.3, 04/14 0.5, 07/12 0.4 Total testosterone: 04/13 610, 10/11 279, 04/14 315, 07/12 443 Free testosterone: 10/11 38.2, 2/24 6.81, 07/12 4.7 Previous workup has included a retroperitoneal ultrasound 10/11 noting right kidney with no calculi or hydronephrosis. 7 mm simple cyst in the lower pole and 1.2 cm simple cyst in the lower pole per radiology report no follow-up imaging is recommended. Left kidney with no calculi or hydronephrosis. 6 mm simple cyst in the lower pole with no follow-up imaging recommended per radiology report. The bladder is well distended and normal. Pre void bladder volume is approxi mately 230 mL. Postvoid bladder volume is approximately 90 mL. Prostate volume is approximately 40 mL. He otherwise reports be happy with current voiding parameters. He reports compliance with topical testosterone as prescribed. In office urinalysis results reviewed with the patient today. PVR 18 mL. He otherwise offers no issues or concerns at this time. Prostate Cancer: [place] 3 + 4, XRT with short-term hormones 2015 Prostate cancer was diagnosed [address] Tai. Diagnosis was reached by needle biopsy, for elevated PSA. The [place]oud grade is January 2010 left apex microscopic focus [place] 3+3 . March 2011 negative biopsy April 2012 left apex [place] 3+3 one core 5% September 2014 [place] 3+3 2 cores middle left 20% Volume 95 cc. September 2015 TURP Gl 3+4 in tissue 35%. TNM Classification of Malignant Tumours (TNM) T1a. The D'Kael (NCCN) risk category is Intermediate Risk (PSA 10-20, Gl 7, T2). Initial therapy included Primary treatment, Deferred Therapy (active surveillance) Additional treatment - recommend radiation Sep 2015 start bicalutamide, November 23 2015 - GnRH shot Additional treatment Mar 2016 - stopped oxybutinin and bicalutamide , Additional treatment completed radiation April 2016 , Additional treatment, 12/05 Observation - off 5AR. Recent labs included a PSA (prostate-specific antigen) October 2009 6.7, December 2009 7.0, September 2010 8.8, in February 2011 11, March 2012 19.5 finasteride started, November 2012 8.9, April 2014 10.6, April 2015 13.5 - bicalutamide started Oct 2015 4.25 July 2016 < 0.1, 12/05 , a PSA (prostate-specific antigen), < 0.1, a testosterone 56 04/08 , a PSA (prostate-specific antigen), < 0.1, a testosterone 111, 08/06 , a PSA (prostate-specific antigen) .2, , a testosterone 124, 12/06 PSA 0.3 T 362 04/09 PSA 0.3, T 270, 09/06 PSA 0.5 T 175 03/10 PSA 0.5 T 477, 07/08 PSA 0.5 T 560, 02/07 PSA 0.4 - 08/09 PSA 0.5, T 730, 04/12 P 0.6, T 260, 10/10 P 0.6 T 212, 10/11 P 0.3 T 279. Recent imaging included an MRI (magnetic resonance imaging) May 2015 , showing prostatic mass(es) hyperpalsia vs tumor, no evidence of extracapsular spread, I have reviewed the images - Sep 2015 , a bone scan NAD. Associated conditions erectile dysfunction Yes rectal urgency Yes Occasional Therapeutic plan: Remain on T therapy. Current symptoms include Overactive bladder July 2020 trial Flomax - failed prior therapy oxybuytin, vesicare Hypogonadism T did not recover after radiation does response to AndroGel 2 doses Obesity PFSH Medical History Recurrent urinary tract infection Prostatitis OA (osteoarthritis) Sleep apnea Hyperlipidemia GERD (gastroesophageal reflux disease) Chronic back pain Hypothyroidism Acute bilateral low back pain without sciatica Hypogonadism in male Dysuria Nocturia Elevated PSA BPH (benign prostatic hyperplasia) Erectile dysfunction Prostate cancer Surgical History History of prostate surgery Hx of arthroscopy of knee Hx of prostate biopsy Hx of hernia repair Social History Patient Tobacco Use Status: Former Tobacco user Review of Systems Const Reports as per HPI Eyes Reports no additional complaints ENT Reports no additional complaints Card Reports as per HPI Resp Reports no additional complaints GI Reports as per HPI Reports as per HPI Musc Reports as per HPI Neuro Reports no additional complaints Psych Reports no additional complaints Endo Reports no additional complaints Nabor/Lymph Reports no additional complaints Aller/Immun Reports no additional complaints Physical Exam Const General: cooperative, healthy appearing, comfortable, no acute distress, well developed, alert and awake Nutritional Appearance: overweight Orientation/consciousness: patient oriented x3 Limitations: ambulation with cane HEENT Head: Yes normal to inspection, Yes normocephalic and Yes atraumatic Ears: hearing grossly normal bilaterally Eyes General: appearance normal, both eyes and all related structures Neck Neck: Yes normal visual inspection and Yes trachea midline Chest Chest palpation & inspection: normal inspection of the chest Resp Effort & Inspection: normal respiratory effort and able to speak in complete sentences Cardio Rate: regular rate GI Inspection: Yes normal to inspection General: Yes no CVA tenderness Back/Spine/Pelvis Back: no CVA tenderness Skin General skin exam: no rashes or lesions noted Neuro General: patient oriented x3 Extrem General: Yes normal to inspection Psych Appearance: grossly normal and well kempt Mental Status: mental status grossly normal Speech and movement: Clear speech present Affect: normal affect Attitude: cooperative Thought process: Normal thought process present Thought content: Normal thought content present Insight: Fair insight present (Psych) Judgement: Fair judgement present (Psych) Office Procedures Post Void Residual Post Residual Void Post Void Residual (PVR): 18 [id number]-[id number] Void Residual by ultrasound Results AMB Urinalysis, Automated UA Leukoctes 0 Skinny/uL Last Edit by [employer] on 08/13/23 08:56 UA Nitrite Negative Last Edit by [employer] on 08/13/23 08:56 UA Urobilinogen 0.2 mg/dL Last Edit by [employer] on 08/13/23 08:56 UA Protein 15 mg/dL Last Edit by [employer] on 08/13/23 08:56 UA pH 6.0 Last Edit by [employer] on 08/13/23 08:56 UA Blood 0 Antonio/uL Last Edit by [employer] on 08/13/23 08:56 UA Specific [place] 1.025 Last Edit by [employer] on 08/13/23 08:56 UA Ketone Negative Last Edit by [employer] on 08/13/23 08:56 UA Bilirubin 0 mg/dL Last Edit by [employer] on 08/13/23 08:56 UA Glucose 0 mg/dL Last Edit by [employer] on 08/13/23 08:56 Results Reviewed Results Reviewed: Laboratory Last Values Urine pH (Auto) 6.0 08/13/23 08:37 Specific [place] (Auto) 1.025 08/13/23 08:37 Urine Protein (Auto) 15 mg/dL 08/13/23 08:37 Glucose (UA)(Auto) 0 mg/dL 08/13/23 08:37 Urine Ketones (Auto) Negative 08/13/23 08:37 Urine Blood (Auto) 0 Antonio/uL 08/13/23 08:37 Urine Nitrite (Auto) Negative 08/13/23 08:37 Urine Bilirubin (Auto) 0 mg/dL 08/13/23 08:37 Urine Urobilinogen (Auto) 0.2 mg/dL 08/13/23 08:37 Leukocyte Esterase (Auto) 0 Skinny/uL 08/13/23 08:37 Assessment & Plan Assessment & Plan (1) Prostate cancer: Code(s): C61 - Malignant neoplasm of prostate Category: Medical (2) Hypogonadism in male: Code(s): E29.1 - Testicular hypofunction Category: Medical (3) Urinary urgency: Code(s): R39.15 - Urgency of urination Category: Medical (4) Radiation cystitis: Code(s): N30.40 - Irradiation cystitis without hematuria Category: Medical (5) Prostate stricture: Code(s): N42.89 - Other specified disorders of prostate Category: Medical Plan In office urinalysis results reviewed with the patient today; as noted above. PVR 18 mL. Patient currently denies any bothersome urinary issues or concerns. Continue Myrbetriq as discussed and prescribed. Discussed increasing dosage given increased episodes of nocturia. Discussed and stressed the importance of limiting fluids 2-3 hours prior to bed to decrease episodes of nocturia. Discussed at length importance of compliance with CPAP machine for improvement in lower urinary tract symptoms as well as overall health and well-being. Recent labs reviewed with the patient today; as noted above. Discussed bladder triggers/irritants. Continue testosterone as discussed and prescribed; refill provided. Will obtain PSA, CBC, and testosterone labs in 6 months. Follow-up in 6 months with labs to be completed prior; or sooner with any issues, concerns, and or questions. Orders: Orders AMB Urinalysis Automated Today Z13.9 - Encounter for screening, unspecified AMB Post Void Residual by ultrasound Today R39.15 - Urgency of urination Complete Blood Count no Diff 6 Months E29.1 - Testicular hypofunction Prostate Specific Antigen 6 Months C61 - Malignant neoplasm of prostate, E29.1 - Testicular hypofunction Testosterone, Free/Total 6 Months C61 - Malignant neoplasm of prostate, E29.1 - Testicular hypofunction Medications: Refilled mirabegron ER 25 mg PO DAILY 90 days 90 tabs 3RF N32.81 - Overactive bladder, R39.15 - Urgency of urination Patient Instructions: The patient had an opportunity to ask questions regarding the treatment plan. All questions were answered. Physical exam, labs, and imaging were discussed and reviewed in detail. As well as risks, benefits, and discussion of treatment choices. No major barriers to understanding were identified. The patient expressed understanding and agreement with the above treatment plan. The patient was made aware they should contact our office by phone for worsening of their current condition, the appearance of new symptoms, or with any questions or concerns. Compliance is encouraged with any medications and follow up testing that is ordered. It is a privilege to be allowed the opportunity to participate in? your urological care.? Again, if you have any questions or concerns If you have any questions or concerns please do not hesitate to contact me. The office is [phone]. This note is constructed using voice recognition software. While every effort has been made to ensure accuracy program counselor errors may have been included. Yours sincerely, TJ Rodriguez- Coding Level of Care Code Est Pt Level 4 (44797) Complex EM visit Add On G2211 Diagnoses Prostate cancer C61 Hypogonadism in male E29.1 Urinary urgency R39.15 Radiation cystitis N30.40 Prostate stricture N42.89 CPT Codes Post Residual Void - PVR CPT Code: 89969-Bpor Void Residual by ultrasound ([id number])
== END 2023-08-13 09:22 | disposition home or self-care (01) ==
PROVIDERS: PCP Internal Medicine; Visit Provider Nurse Practitioner Family
DX: C61 Malignant neoplasm of prostate (principal); E29.1 Testicular hypofunction; R39.15 Urgency of urination; N30.40 Irradiation cystitis without hematuria; N42.89 Other specified disorders of prostate; Z13.9 Encounter for screening, unspecified
CPT/HCPCS: 99214; G2211

== ENCOUNTER → 2023-08-13 08:40 | Outpatient (BNVA) | payer MEDICARE, MEDICAID, SELFPAY | PROVIDERS: PCP Internal Medicine; Visit Provider Nurse Practitioner Family | DX: C61 Malignant neoplasm of prostate (principal); E29.1 Testicular hypofunction; R39.15 Urgency of urination; N30.40 Irradiation cystitis without hematuria; N42.89 Other specified disorders of prostate; N32.81 Overactive bladder | CPT/HCPCS: 51798; 81003; 99212 ==

== ENCOUNTER 2024-01-31 13:33 | Outpatient (REF) | payer MEDICARE, SELFPAY ==
[2024-01-31 15:10] LABS: Erythrocyte Sedimentation Rate 14 MM/HR (0-15)
[2024-01-31 15:14] LABS: Rheumatoid Factor < 13.0 IU/mL (<15.0)
[2024-02-01 23:53] LABS: Lyme Abs Screen <0.90 index
[2024-02-05 21:59] LABS: Treponema pallidum Ab FTA ABS Nonreactive (Nonreactive)
== END 2024-01-31 13:34 | disposition home or self-care (01) ==
LOC: HO.LAB 13:33
PROVIDERS: PCP Internal Medicine; Visit Provider Psychiatry & Neurology Neurology
DX: R51.9 Headache, unspecified (principal)
CPT/HCPCS: 36415; 82550; 85652; 86431; 86617; 86618; 86780

== ENCOUNTER → 2024-03-27 11:41 | Outpatient (BNVA) | payer MEDICARE, SELFPAY | PROVIDERS: PCP Internal Medicine; Visit Provider Nurse Practitioner Family | DX: C61 Malignant neoplasm of prostate (principal); E29.1 Testicular hypofunction; R35.1 Nocturia; N32.81 Overactive bladder; N42.89 Other specified disorders of prostate | CPT/HCPCS: 99212 ==

== ENCOUNTER 2024-06-26 11:46 | Outpatient (AMB) | payer MEDICARE, SELFPAY ==
--- NOTE | 2024-06-26 11:45 | A.OFFVIS_ITS ---
Intake Visit Reasons: 3m/PSA Intake Note: Patient presents today for follow up visit follow up on: prostate cancer, hypogonadism, OAB and labs PSA: 0.3 Testosterone: (pending) Free Testosterone: 2.8 Urology Medications: myrbetriq, testosterone Blood Thinner: None PVR: Body Maker Machine Setter Required: No Accompanied by: Self / Same As Patient Allergies codeine [Tylenol-Codeine #3] Allergy (Mild, Verified 06/26/24 12:56) unknown Iodinated Contrast Media [IV CONTRAST] Allergy (Mild, Verified 06/26/24 12:56) HIVES Medication List - Last Reconciled 06/26/24 by TJ Rodriguez- albuterol sulfate 90 mcg/actuation 1 puff PO QID PRN carisoprodol 350 mg PO BID PRN doxepin 10 mg PO BEDTIME fluticasone propionate 50 mcg/actuation 1 spray intranasal DAILY PRN hydrocodone-acetaminophen 10-325 mg tabs PO hydroxyzine pamoate 25 mg PO DAILY PRN levothyroxine 200 mcg PO QAM metoprolol succinate ER mg PO DAILY mirabegron ER 25 mg PO DAILY 90 days omeprazole 40 mg PO DAILY PRN sertraline 200 mg PO DAILY testosterone 50 mg transdermal DAILY 30 days verapamil mg PO zolpidem 10 mg PO BEDTIME PRN HPI Comments Details: Ralph is a very pleasant 74-year-old male patient of Dr. Hernández. He has a past medical history of chronic back pain, ED, GERD, hyperlipidemia, hypothyroidism, nocturia, osteoarthritis, prostatitis, recurrent urinary tract infections, and sleep apnea. He presents to the office today for follow-up of his prostate cancer, hypogonadism, and lower urinary tract symptoms. In discussion with the patient today he reports to be doing and feeling well urologically. He discusses since his last office visit here he has been following up with Neurology as well as Cardiology for ongoing chest pain and headaches he continues to experience. He discusses having started new blood pressure medication. He reports significant improvement in lower urinary tract symptoms he had been experiencing with 25 mg of Myrbetriq. However, does feel at times he continues to experience episodes of urinary urgency and frequency. Recent labs reviewed with the patient today as noted and trended below. PSA: 04/13 0.4, 10/11 0.3, 04/14 0.5, 07/12 0.4, 02/11 0.3, 07/13 0.3 Total testosterone: 04/13 610, 10/11 279, 04/14 315, 07/12 443, 02/11 167, 07/13 pending Free testosterone: 10/11 38.2, 04/14 6.81, 07/12 4.7, 02/11 1.4, 2.8 Hemoglobin/hematocrit: 07/13 14.3/42.6 Previous workup has included a retroperitoneal ultrasound 10/11 noting right kidney with no calculi or hydronephrosis. 7 mm simple cyst in the lower pole and 1.2 cm simple cyst in the lower pole per radiology report no follow-up imaging is recommended. Left kidney with no calculi or hydronephrosis. 6 mm simple cyst in the lower pole with no follow-up imaging recommended per radiology report. The bladder is well distended and normal. Pre void bladder volume is approximately 230 mL. Postvoid bladder volume is approximately 90 mL. Prostate volume is approximately 40 mL. He otherwise reports be happy with current voiding parameters. He reports compliance with topical testosterone as prescribed. In office urinalysis results reviewed with the patient today. PVR 0 mLs. He otherwise offers no issues or concerns at this time. Prostate Cancer: [place] 3 + 4, XRT with short-term hormones 2015 Prostate cancer was diagnosed [address] Tai. Diagnosis was reached by needle biopsy, for elevated PSA. The Masoud grade is January 2010 left apex microscopic focus [place] 3+3 . March 2011 negative biopsy April 2012 left apex [place] 3+3 one core 5% September 2014 [place] 3+3 2 cores middle left 20% Volume 95 cc. September 2015 TURP Gl 3+4 in tissue 35%. TNM Classification of Malignant Tumours (TNM) T1a. The D'Kael (NCCN) risk category is Intermediate Risk (PSA 10-20, Gl 7, T2). Initial therapy included Primary treatment, Deferred Therapy (active surveillance) Additional treatment - recommend radiation Sep 2015 start bicalutamide, November 23 2015 - GnRH shot Additional treatment Mar 2016 - stopped oxybutinin and bicalutamide , Additional treatment completed radiation April 2016 , Additional treatment, 12/05 Observation - off 5AR. Recent labs included a PSA (prostate-specific antigen) October 2009 6.7, December 2009 7.0, September 2010 8.8, in February 2011 11, March 2012 19.5 finasteride started, November 2012 8.9, April 2014 10.6, April 2015 13.5 - bicalutamide started Oct 2015 4.25 July 2016 < 0.1, 12/05 , a PSA (prostate-specific antigen), < 0.1, a testosterone 56 04/08 , a PSA (prostate-specific antigen), < 0.1, a testosterone 111, 08/06 , a PSA (prostate-specific antigen) .2, , a testosterone 124, 12/06 PSA 0.3 T 362 04/09 PSA 0.3, T 270, 09/06 PSA 0.5 T 175 03/10 PSA 0.5 T 477, 07/08 PSA 0.5 T 560, 02/07 PSA 0.4 - 08/09 PSA 0.5, T 730, 04/12 P 0.6, T 260, 10/10 P 0.6 T 212, 10/11 P 0.3 T 279. Recent imaging included an MRI (magnetic resonance imaging) May 2015 , showing prostatic mass(es) hyperpalsia vs tumor, no evidence of extracapsular spread, I have reviewed the images - Sep 2015 , a bone scan NAD. Associated conditions erectile dysfunction Yes rectal urgency Yes Occasional Therapeutic plan: Remain on T therapy. Current symptoms include Overactive bladder July 2020 trial Flomax - failed prior therapy oxybuytin, vesicare Hypogonadism T did not recover after radiation does response to AndroGel 2 doses Obesity PFSH Medical History Recurrent urinary tract infection Prostatitis OA (osteoarthritis) Sleep apnea Hyperlipidemia GERD (gastroesophageal reflux disease) Chronic back pain Hypothyroidism Acute bilateral low back pain without sciatica Hypogonadism in male Dysuria Nocturia Elevated PSA BPH (benign prostatic hyperplasia) Erectile dysfunction Prostate cancer Surgical History History of prostate surgery Hx of arthroscopy of knee Hx of prostate biopsy Hx of hernia repair Social History Patient Tobacco Use Status: Former Tobacco user Review of Systems Const Reports as per HPI Eyes Reports no additional complaints ENT Reports no additional complaints Card Reports as per HPI Resp Reports no additional complaints GI Reports as per HPI Reports as per HPI Musc Reports as per HPI Neuro Reports no additional complaints Psych Reports no additional complaints Endo Reports no additional complaints Nabor/Lymph Reports no additional complaints Aller/Immun Reports no additional complaints Physical Exam Const General: cooperative, healthy appearing, comfortable, no acute distress, well developed, alert and awake Nutritional Appearance: overweight Orientation/consciousness: patient oriented x3 Limitations: ambulation with cane HEENT Head: Yes normal to inspection, Yes normocephalic and Yes atraumatic Ears: hearing grossly normal bilaterally Eyes General: appearance normal, both eyes and all related structures Neck Neck: Yes normal visual inspection Chest Chest palpation & inspection: normal inspection of the chest Resp Effort & Inspection: normal respiratory effort and able to speak in complete sentences Cardio Rate: regular rate GI Inspection: Yes normal to inspection General: Yes no CVA tenderness Back/Spine/Pelvis Back: no CVA tenderness Skin General skin exam: no rashes or lesions noted Neuro General: patient oriented x3 Extrem General: Yes normal to inspection Psych Appearance: grossly normal and well kempt Mental Status: mental status grossly normal Speech and movement: Clear speech present Affect: normal affect Attitude: cooperative Thought process: Normal thought process present Thought content: Normal thought content present Insight: Fair insight present (Psych) Judgement: Fair judgement present (Psych) Office Procedures Post Void Residual Post Residual Void Post Void Residual (PVR): 0 [id number]-[id number] Void Residual by ultrasound Results AMB Urinalysis, Automated UA Leukoctes 0 Skinny/uL Last Edit by Nicci Dooley on 06/26/24 12:00 UA Nitrite Last Edit by Nicic Dooley on 06/26/24 12:00 UA Urobilinogen 0.2 mg/dL Last Edit by Nicci Dooley on 06/26/24 12:00 UA Protein 0 mg/dL Last Edit by Nicci Dooley on 06/26/24 12:00 UA pH 7.0 Last Edit by Nicci Dooley on 06/26/24 12:00 UA Blood 0 Antonio/uL Last Edit by Nicci T[employer]aromain on 06/26/24 12:00 UA Specific [place] 1.015 Last Edit by Nicci [employer]aromain on 06/26/24 12:00 UA Ketone Last Edit by Nicci [employer]aromain on 06/26/24 12:00 UA Bilirubin 0 mg/dL Last Edit by Nicci [employer]aromain on 06/26/24 12:00 UA Glucose 0 mg/dL Last Edit by Nicci T[employer]aromain on 06/26/24 12:00 Results Reviewed Results Reviewed: Laboratory Last Values Urine pH (Auto) 7.0 06/26/24 11:52 Specific [place] (Auto) 1.015 06/26/24 11:52 Urine Protein (Auto) 0 mg/dL 06/26/24 11:52 Glucose (UA)(Auto) 0 mg/dL 06/26/24 11:52 Urine Blood (Auto) 0 Antonio/uL 06/26/24 11:52 Urine Bilirubin (Auto) 0 mg/dL 06/26/24 11:52 Urine Urobilinogen (Auto) 0.2 mg/dL 06/26/24 11:52 Leukocyte Esterase (Auto) 0 Skinny/uL 06/26/24 11:52 Assessment & Plan Assessment & Plan Plan In office urinalysis results reviewed the patient today; as noted above. PVR 0 mL. Continue testosterone and Myrbetriq as prescribed; refills provided. Recent testosterone, free testosterone, hemoglobin, hematocrit, and PSA results reviewed with the patient today; as noted above. He reports be happy with current voiding parameters. Will continue with surveillance monitoring. Will obtain CBC, PSA, and testosterone free and total in 3 months Follow-up in 3 months with labs to be completed prior; or sooner with any issues, concerns, and or questions. Orders: Orders AMB Urinalysis Automated Today Z13.9 - Encounter for screening, unspecified AMB Post Void Residual by ultrasound Today R39.15 - Urgency of urination Patient Instructions: The patient had an opportunity to ask questions regarding the treatment plan. All questions were answered. Physical exam, labs, and imaging were discussed and reviewed in detail. As well as risks, benefits, and discussion of treatment choices. No major barriers to understanding were identified. The patient expressed understanding and agreement with the above treatment plan. The patient was made aware they should contact our office by phone for worsening of their current condition, the appearance of new symptoms, or with any questions or concerns. Compliance is encouraged with any medications and follow up testing that is ordered. It is a privilege to be allowed the opportunity to participate in? your urological care.? Again, if you have any questions or concerns If you have any questions or concerns please do not hesitate to contact me. The office is [phone]. This note is constructed using voice recognition software. While every effort has been made to ensure accuracy dishcloth folder errors may have been included. Yours sincerely, FRANCIA Rodriguez Coding Level of Care Code Est Pt Level 3 (79737) Complex EM visit Add On G2211 CPT Codes Post Residual Void - PVR CPT Code: 87388-Yqrp Void Residual by ultrasound ([id number])
--- OUTSIDE RECORDS SUMMARY | 2024-06-26 13:19 | XMS_ITS | Encounter Summary ---
Author Organization [facility] Address [address] [place] [address] Care Team Providers Care Election Watcher Name Role Phone Roby Hernández Primary Care Provider [phone] Encounter Details Date Type Department Care Team (Late st Contact Info) Description 06/28/2023 Orders Only [facility] [address] [place] [address] Hunter Montejo MD [address] [place] [address] Fatigue, unspecified type (Primary Dx); Vision abnormalities; Palpitation; SOB (shortness of breath) Social History Tobacco Use Types Packs/Day Years Used Date Smoking Tobacco: Former Comments:: Sex and Gender Information Value Date Recorded Sex Assigned at Not on file Legal Sex Male 12:09 AM EDT Gender Identity Not on file Sexual Orientation Not on file documented as of this encounter Plan of Treatment Upcoming Encounters Date Type Department Care Team (Late st Contact Info) Description 08/21/2024 9:45 AM EDT Procedure visit [facility] Ophthalmology [address] [place] [address] Erin Arreaga MD [address] [place] [address] 11/18/2024 9:45 AM EDT Office Visit [facility] Ophthalmology [address] [place] [address] Erin Arreaga MD [address] [place] [address] Scheduled Orders Name Type Priority Associated Diagnoses Orde r Schedule SSA & SSB (SJOGREN'S) Antibodies Lab Routine Fatigue, unspecified type Vision abnormalities Palpitation SOB (shortness of breath) Expected: 06/28/2023, Expires: 06/27/2024 documented as of this encounter Visit Diagnoses Diagnosis Fatigue, unspecified type- Primary Vision abnormalities Unspecified visual loss Palpitation Palpitations SOB (shortness of breath) Shortness of breath documented in this encounter Care Teams Election Watcher Relationship Specialty Start Date End Date Roby Hernández [address] [place] [address] PCP - General Internal Medicine 09/09/20 documented as of this encounter
--- OUTSIDE RECORDS SUMMARY | 2024-06-26 13:20 | XMS_ITS | Encounter Summary ---
Author Organization [facility] Address [address] [facility] [address] [place] [address] Phone Care Team Providers Care Territory Business Manager Name Role Phone Theo Hutchins MD Unavailable Roby Hernández MD Primary Care Provider [phone] Roby Hernández MD Unavailable Encounter Details Date Type Department Care Team (Late st Contact Info) Description 06/10/2024 Procedure Pass [facility], Ct Scan - [facility] [address] [place] [address] Social History Tobacco Use Types Packs/Day Years Used Date Smoking Tobacco: Former Cigarettes 3 1 962 - 1988 Passive Smoke Exposure: Never [...] your housing situation today? I have lukas sing 06/02/2024 How many times have you move [...] Assigned at Male 10/10/2021 11:33 AM EDT Gender Identity Male 10/10/2021 11:33 AM EDT Sexual Orientation Straight 10/10/2021 11 :33 AM EDT documented as of this encounter Plan of Treatment Upcoming Encounters Date Type Department Care Team (Late st Contact Info) Description 10/08/2024 11:00 AM EDT Appointment [facility] [address] [place] [address] Rboy Hernández MD [address] [place] [address] documented as of this encounter Visit Diagnoses Not on filedocumented in this encounter Additional Health Concerns Assessment Noted Time PHQ-9 Depression Total Score: 16 01/29/2 025 9:59 AM EST PHQ-2 Depression Total Score: 2 06/03/19 25 11:10 AM EDT documented as of this encounter Care Teams Territory Business Manager Relationship Specialty Start Date End Date Roby Hernández MD [address] [place] [address] PCP - General Internal Medicine 03/04/20 Theo Hutchins MD Urology 08/19/19 Roby Hernández MD [address] [place] [address] [email or web address] Insurance Assigned Provider 05/25/24 documented as of this encounter Additional Source Comments The information contained in this document represents components of the legal health record. It is not the complete legal health record.[facility]
--- OUTSIDE RECORDS SUMMARY | 2024-06-26 13:20 | XMS_ITS | Encounter Summary ---
Author Organization [facility] Address [address] [facility] [address] [place] [address] Phone Care Team Providers Care Navy Senior Officer Name Role Phone Theo Hutchins MD Unavailable Roby Hernández MD Primary Care Provider [phone] Roby Hernández MD Unavailable Encounter Details Date Type Department Care Team (Late st Contact Info) Description 06/16/2024 Procedure Pass [facility], Ct Scan - [facility] [address] [place] [address] Social History Tobacco Use Types Packs/Day Years [...] AM EDT Appointment [facility] [place] [address] [place] [address] Roby Hernández MD [address] [place] [address] documented as of this encounter Visit Diagnoses Not on filedocumented in this encounter Additional Health Concerns Assessment Noted Time PHQ-9 Depression Total Score: 16 01/29/2 025 9:59 AM EST PHQ-2 Depression Total Score: 2 06/03/19 25 11:10 AM EDT documented as of this encounter Care Teams Navy Senior Officer Relationship Specialty Start Date End Date Roby Hernández MD [address] [place] [address] PCP - General Internal Medicine 03/04/20 Theo Hutchins MD Urology 08/19/19 Roby Hernández MD [address] [place] [address] [email or web address] Insurance Assigned Provider 05/25/24 documented as of this encounter Additional Source Comments The information contained in this document represents components of the legal health record. It is not the complete legal health record.[facility]
--- OUTSIDE RECORDS SUMMARY | 2024-06-26 13:21 | XMS_ITS | Encounter Summary ---
Author Organization [facility] Address [address] [place] [address] [address] [place] [address] Phone Care Team Providers Care Senior Relationship Manager Name Role Phone Roby Hernández MD Primary Care Provider [phone] Theo Hutchins MD Unavailable Roby Hernández MD Primary Care Provider Roby Hernández MD Unavailable Roby Hernández MD Unavailable Encounter Details Date Type Department Care Team (Late st Contact Info) Description 05/16/2016 Procedure Pass [facility], [place] [address] [facility], [address], [address] [place] [address] Social History Tobacco Use Types Packs/Day Years Used Date Smoking Tobacco: Former Alcohol Use Standard Drinks/Week Comments Not Asked 0 (1 standard drink = 0.6 oz pur e alcohol) Sex and Gender Information Value Date Recorded Sex Assigned at Male 10/10/2021 11:33 AM EDT Gender Identity Male 10/10/2021 11:33 AM EDT Sexual Orientation Straight 10/10/2021 11 :33 AM EDT documented as of this encounter Plan of Treatment Upcoming Encounters Date Type Department Care Team (Late st Contact Info) Description 10/08/2024 11:00 AM EDT Appointment [facility] Internal Medicine [address] [place], [place] [phone] Roby Hernández MD [address] [place], [place] [id number] documented as of this encounter Visit Diagnoses Not on filedocumented in this encounter Additional Health Concerns Infection Onset Date Last Indicated Resolved Time CoV-Risk 08/04/2019 08/04/2019 08/18/2019 1:24 AM EDT CoV-Risk 08/20/2020 08/20/2020 08/30/2020 1:24 AM EDT CoV-Presumed 07/05/2021 07/05/2021 07/26/2021 1:21 AM EDT documented as of this encounter Care Teams Senior Relationship Manager Relationship Specialty Start Date End Date Roby Hernández MD [address] [place] [address] PCP - General Internal Medicine 03/11/15 03/03/20 Roby Hernández MD [address] [place] [address] PCP - General Internal Medicine 03/04/20 Theo Hutchins MD [address] [place] [address] Urology 08/19/19 Roby Hernández MD [address] [place] [address] Insurance Assigned Provider 05/29/20 11/27/20 Roby Hernández MD [address] [place] [address] Insurance Assigned Provider 05/25/24 documented as of this encounter Additional Source Comments The information contained in this document represents components of the legal health record. It is not the complete legal health record.[facility]
--- OUTSIDE RECORDS SUMMARY | 2024-06-26 13:21 | XMS_ITS | Encounter Summary ---
Author Organization [facility] Address [address] [place] [address] Phone Care Team Providers Care Splicer Helper Name Role Phone Theo Hutchins MD Unavailable Roby Hernández MD Primary Care Provider [phone] Roby Hernández MD Unavailable Encounter Details Date Type Department Care Team (Late st Contact Info) Description 11/07/2023 Procedure Pass [facility], Ct Scan - [facility] [address] [place] [address] Social History Tobacco Use Types Packs/Day Years Used Date Smoking Tobacco: Former Cigarettes 3 1 962 - 1988 Passive Smoke Exposure: Never Smokeless Tobacco: Never Alcohol Use Standard Drinks/Week Comments Not Currently 0 (1 standard drink = 0.6 oz pur e alcohol) last drink 1979 Education Answer Date Recorded Are you interested in more education? Not on nena e 06/16/2022 Are you concerned about learning? Not on file 06/16/2022 No 06/16/2022 No 06/16/2022 Digital Access Answer Date Recorded No 07/11/2022 No 07/11/2022 Reliable internet access at home? Not on file 07/11/2022 Device with a working camera? Not on file Intimate Partner Violence Answer Date R ecorded Denied Basic Needs Not on file 01/03/2023 In the past 12 months have y ou been in a relationship with a person who hurts, threatens, or tries to control you? No 01/03/2023 Worried food would run out Not on file 01/03 In the past 12 months have y ou been in a relationship with a person who hurts, threatens, or tries to control you? No 01/03/2023 Sex and Gender Information Value Date Recorded Sex Assigned at Male 10/10/2021 11:33 AM EDT Gender Identity Male 10/10/2021 11:33 AM EDT Sexual Orientation Straight 10/10/2021 11 :33 AM EDT documented as of this encounter Plan of Treatment Upcoming Encounters Date Type Department Care Team (Late st Contact Info) Description 10/08/2024 11:00 AM EDT Appointment [facility] Internal Medicine [address] [place], [place] [id number] Roby Hernández MD [address] [place] [address] documented as of this encounter Visit Diagnoses Not on filedocumented in this encounter Additional Health Concerns Assessment Noted Time PHQ-9 Depression Total Score: 8 01/04/20 23 11:10 AM EST PHQ-2 Depression Total Score: 4 01/04/20 23 11:10 AM EST documented as of this encounter Care Teams Splicer Helper Relationship Specialty Start Date End Date Roby Hernández MD [address] [place] [address] [email or web address] PCP - General Internal Medicine 03/04/20 Theo Hutchins MD Urology 08/19/19 Roby Hernández MD [address] [place] [address] [email or web address] Insurance Assigned Provider 05/25/24 documented as of this encounter Additional Source Comments The information contained in this document represents components of the legal health record. It is not the complete legal health record.[facility]
--- OUTSIDE RECORDS SUMMARY | 2024-06-26 13:21 | XMS_ITS | Encounter Summary ---
Author Organization [facility] Address [address] [place] [address] Phone Care Team Providers Care Soap Grinder Name Role Phone Theo Hutchins MD Unavailable [phone] Roby Hernández MD Primary Care Provider [phone] Roby Hernández MD Unavailable Encounter Details Date Type Department Care Team (Late st Contact Info) Description 11/07/2023 Procedure Pass [facility] [address] [place] [address] Social History Tobacco Use Types Packs/Day Years [...] Info) Description 10/08/2024 11:00 AM EDT Appointment [facility] Internal Medicine [address] [place] [address] Roby Hernández MD [address] [place] [address] [email or web address] documented as of this encounter Visit Diagnoses Not on filedocumented in this encounter Additional Health Concerns Assessment Noted Time PHQ-9 Depression Total Score: 8 01/04/20 23 11:10 AM EST PHQ-2 Depression Total Score: 4 01/04/20 23 11:10 AM EST documented as of this encounter Care Teams Soap Grinder Relationship Specialty Start Date End Date Roby Hernández MD [address] [place] [address] PCP - General Internal Medicine 03/04/20 Theo Hutchins MD Urology 08/19/19 Roby Hernández MD [address] [place] [address] Insurance Assigned Provider 05/25/24 documented as of this encounter Additional Source Comments The information contained in this document represents components of the legal health record. It is not the complete legal health record.[facility]
--- OUTSIDE RECORDS SUMMARY | 2024-06-26 13:21 | XMS_ITS | Clinical Summary ---
Author Organization [facility] Address [address] [place] [address] Phone Care Team Providers Care Hadoop Analyst Name Role Phone Roby Hernández MD Primary Care Provider Allergies No known active allergies Medications No known medications Social History Tobacco Use Types Packs/Day Years Used Date Smoking Tobacco: Never Assessed Sex and Gender Information Value Date Recorded Sex Assigned at Not on file Legal Sex Male 2:27 PM EST Gender Identity Not on file Sexual Orientation Not on file Last Filed Vital Signs Vital Sign Reading Time Taken Comments Blood Pressure - - Pulse - - Temperature - - Respiratory Rate - - Oxygen Saturation - - Inhaled Oxygen Concentration - - Weight 113 kg (250 lb) 03/13/2024 8:59 AM EST Height 177.8 cm (5' 10 ) 03/13/2024 8:59 AM EST Body Mass Index 35.87 03/13/2024 8:59 AM EST Plan of Treatment Upcoming Encounters Date Type Department Care Team (Late st Contact Info) Description 07/28/2024 9:45 AM EDT Office Visit [facility] - [place] [address] [phone] Balta Mercado, [place] [address] [address] Health Maintenance Due Date Last Done Comments COVID-19 Vaccine (#1) 05/29/1955 Pneumococcal Vaccine: 50+ Years (1 of 2 - PCV) 05/29/1970 Zoster Vaccines (1 of 2) 05/29/1970 RSV Immunization Adult Patients (1 - Risk 60-74 years 1-dose series) 2011 Abdominal Aortic Aneurysm (AAA) Screen 01/08/2024 Colorectal Cancer Screening: Colonoscopy 01/08/2024 Depression Screening 01/08/2024 01/03/2023 Falls Risk Assessment 01/08/2024 Hepatitis C Screening 01/08/2024 Medicare Annual Wellness Visit 01/08/2024 Social Influencers of Health Screening 01/08/2024 Influenza Vaccine (Season Ended) 2024 12/08/2013 DTaP,Tdap,and Td Vaccines (4 - Td or Tdap) 03/15/2028 03/15/2018, 08/11/2005, 08/10/2005 Cholesterol Screening (Lipid Panel) 12/16/2028 12/17/2023, 09/25/2001 HIB Vaccines Aged Out No longer eligi ble based on patient's age to complete this topic HPV Vaccines Aged Out No longer eligi ble based on patient's age to complete this topic Hepatitis A Vaccines Aged Out No long er eligible based on patient's age to complete this topic Hepatitis B Vaccines Aged Out No long er eligible based on patient's age to complete this topic IPV Vaccines Aged Out No longer eligi ble based on patient's age to complete this topic MMR Vaccines Aged Out No longer eligi ble based on patient's age to complete this topic Meningococcal ACWY Vaccine Aged Out N o longer eligible based on patient's age to complete this topic Meningococcal B Vaccine Aged Out No l onger eligible based on patient's age to complete this topic RSV Immunization Patients Under 20 months Aged Out No longer eligible b ased on patient's age to complete this topic Varicella Vaccines Aged Out No longer eligible based on patient's age to complete this topic Procedures Procedure Name Priority Date/Time Associated Diagnosis Comments LIPID PANEL Routine 09/25/2001 from Last 3 Months or Most Recently Relevant to Health Maintenance Results * Lipid panel (09/25/2001) LDL/HDL Ratio 5 1 - 5 Triglycerides 182 10 - 190 mg/dL Cholesterol 211 10 - 240 mg/dL HDL 46 32 - 96 mg/dL LDL Cholesterol 129 62 - 185 mg/dL Blood Venous blood specimen / Unknown Historical Provider LAB BLOOD ORDERABLES Marilyn l Result from Last 3 Months or Most Recently Relevant to Health Maintenance Insurance MEDICARE MEDICAID - [place] Care Teams Hadoop Analyst Relationship Specialty Start Date End Date Roby Hernández MD [address] [place] [address] PCP - General Internal Medicine 01/08/24
--- OUTSIDE RECORDS SUMMARY | 2024-06-26 13:21 | XMS_ITS | Referral Summary ---
Author Organization [facility] Address [address] [place] [address] Care Team Providers Care Loop Drier Operator Name Role Phone Allan Allen Primary Care Provider [phone] Allergies Active Allergy Reactions Criticality Noted Date Comments Acetaminophen-Codeine Unknown Medications albuterol (Ventolin HFA) 90 mcg inhaler Inhale 1 puff by mouth 4 (four) times daily. 4 Active aspirin 81 mg EC tablet Take 81 mg by mouth daily. Active carisoprodoL (SOMA) 350 mg tablet Take 350 mg by mouth 2 times daily. 5 Active celecoxib (CeleBREX) 200 mg capsule Take 200 mg by mouth 2 times daily. 1 Active chlorhexidine (PERIDEX) 0.12% solution SWISH AND SPIT 15ML UNDILLUTED SOLUTION FOR 30 SECONDS AFTER BREAKFAST AND AT BEDTIME 1 Active diphenhydrAMINE (BENADRYL) 25 mg capsule Take 25 mg by mouth every 6 hours as needed. Active esomeprazole (NexIUM) 40 mg capsule Esomeprazole Magnesium 40 MG Oral Capsule Delayed Release TAKE 1 CAPSULE ONCE DAILY. Quantity: 30; Refills: 5 ALLAN ALLEN MD; Started 29-Jan-2013 Active 3 Active clonazePAM (KlonoPIN) 1 mg tablet ClonazePAM 1 MG Oral Tablet TAKE 1 TABLET TWICE DAILY Quantity: 60; Refills: 5 JARETH CARMICHAEL M.D.; Started Active 3 Active cholecalciferol (VITAMIN D3) 2,000 unit capsule Vitamin D 2000 UNIT Oral Capsule TAKE 1 CAPSULE of vit D3 Daily with fish oil, fat, meals for joint pain Quantity: 90; Refills: 1 ASHLEY BAKER ; Started 03-Jun-2013 Active 4 Active fluticasone propionate (FLONASE) 50 mcg/actuation nasal spray Administer 1 spray into affected nostril(s) daily. 4 Active HYDROcodone-virgen taminophen (LORCET PLUS) 10-325 mg per tablet Take 1 tablet by mouth 4 times a day. 1 Active levothyroxine (Synthroid) 112 mcg tablet Take 224 mcg by mouth daily. 1 Active loratadine (CLARITIN) 10 mg tablet Take 10 mg by mouth. Active omeprazole (PriLOSEC) 40 mg capsule Take 1 capsule by mouth once a day. 1 Active oxybutynin XL (DITROPAN XL) 10 mg tablet Take 10 mg by mouth once a day. 1 Active tamsulosin (FLOMAX) 0.4 mg capsule TAKE 1 CAPSULE BY MOUTH EVERYDAY AT BEDTIME 1 Active zolpidem (AMBIEN) 10 mg tablet Take 10 mg by mouth once daily as needed. Active Myrbetriq 25 mg tablet SMARTSI Tablet(s) By Mouth Daily 4 Active Active Problems Problem Noted Date Diagnosed Date Adenomatous polyp of colon 07/24/2014 Rivas's esophagus 07/21/2014 Helicobacter pylori gastritis 07/21/2014 Prediabetes 07/20/2014 Anemia 07/20/2014 Anxiety 07/20/2014 Rectal bleeding 06/19/2014 Ringworm of body 11/05/2013 Hypertrophy of nasal turbinates 07/21/2013 Urinary tract infection 06/25/2013 Acute sinusitis 06/03/2013 Umbilical hernia 03/27/2013 Diarrhea 01/29/2013 Drug-induced diarrhea 01/29/2013 Tick bites 01/20/2013 Infectious diarrhea 01/20/2013 Abdominal pain 01/20/2013 Osteoarthritis of knee 01/14/2013 Malignant neoplasm of prostate 12/19/2012 Acquired deviated nasal septum 12/11/2012 Facial pain 11/21/2012 Cerumen impaction 11/21/2012 Eustachian tube dysfunction 11/21/2012 Chronic sinusitis 11/21/2012 Severe recurrent major depre ssion without psychotic features 06/07/2012 Nocturia 03/14/2012 Hypogonadism male 03/14/2012 Organic impotence 03/14/2012 Abnormal finding on thyroid function test 2012 Hyperlipidemia 03/14/2012 Obesity 03/14/2012 Elevated prostate specific antigen (PSA) 013 Benign prostatic hypertrophy without urinary obs truction 03/14/2012 Hypothyroidism 03/14/2012 Obstructive sleep apnea 03/14/2012 Chronic pain syndrome 03/14/2012 Hypercholesterolemia 03/14/2012 Esophageal reflux 03/14/2012 Panic disorder with agoraphobia 03/14/2012 Immunizations Immunization Administration Dates Next Due Influenza, Trivalent, MDV, Injectable 12/08/2013 Tetanus and Diphtheria Toxoi ds, Adsorbed, Preservative Free, for Adult Use (5 Lf of Tetanus Toxoid and 2 Lf of Diphtheria Toxoid) 08/11/2005 Social History Tobacco Use Types Packs/Day Years Used Date Smoking Tobacco: Former Comments:: Sex and Gender Information Value Date Recorded Sex Assigned at Not on file Legal Sex Male 12:09 AM EDT Gender Identity Not on file Sexual Orientation Not on file Last Filed Vital Signs Vital Sign Reading Time Taken Comments Blood Pressure 137/72 10/27/2020 2:45 PM EDT Pulse 76 10/27/2020 2:45 PM EDT Temperature 36.2 ??C (97.2 ??F) 09/07/2014 10:38 AM E DT Respiratory Rate - - Oxygen Saturation 95% 07/02/2014 1:36 PM EDT Inhaled Oxygen Concentration - - Weight 117 kg (258 lb) 10/27/2020 2:45 PM EDT Height 172.7 cm (5' 8 ) 10/27/2020 2:45 PM EDT Body Mass Index 39.23 10/27/2020 2:45 PM EDT Plan of Treatment Upcoming Encounters Date Type Department Care Team (Late st Contact Info) Description 08/21/2024 9:45 AM EDT Procedure visit [facility] Ophthalmology [address] [place] [address] Erin Arreaga MD [address] [place] [address] 11/18/2024 9:45 AM EDT Office Visit [facility] Ophthalmology [address] [place] [address] Erin Arreaga MD [address] [place] [address] Insurance HSNO/FREE CARE MEDICARE [facility] Care Teams Loop Drier Operator Relationship Specialty Start Date End Date Allan Allen [address] [place] [address] PCP - General Internal Medicine 09/09/20
--- OUTSIDE RECORDS SUMMARY | 2024-06-26 13:21 | XMS_ITS | Clinical Summary ---
Author Organization [facility] Address [address] [place] [address] Care Team Providers Care Cloud Consultant Name Role Phone Allan Allen Primary Care Provider [phone] Allergies Active Allergy Reactions Criticality Noted Date [...] and 2 Lf of Diphtheria Toxoid) 08/11/2005 Family History Medical History Relation Name Comments Other Mother Family History of malignant neoplasm Other Other Family History of malignant neoplasm Relation Name Status Comments Mother Other Social History Tobacco Use Types Packs/Day Years [...] Description 08/21/2024 9:45 AM EDT Procedure visit [facility] Ophthalmology [address] [place] [address] Erin Arreaga MD [address] [place] [phone] 11/18/2024 9:45 AM EDT Office Visit [facility] Ophthalmology [address] [place] [address] Erin Arreaga MD [address] [place] [address] Health Maintenance Due Date Last Done Comments Cologuard 1950 Colon Cancer Screening 1950 Colonoscopy 1950 FOBT / Fit Test 1950 Hepatitis C Screening 1950 Sigmoidoscopy 1950 Medicare AWV 05/29/1951 COVID-19 Vaccine (#1) 05/29/1956 Pneumococcal Vaccine: 50+ Years (1 of 2 - PCV) 05/29/1970 Zoster Vaccines (1 of 2) 05/29/1970 CT Lung Cancer Screening (Baseline) 05/29/2001 RSV Vaccine (60+ years old a nd patients) (1 - Risk 60-74 years 1-dose series) 2011 Abdominal Aortic Aneurysm (AAA) Screening 05/29/2016 Alcohol/Substance Use Screening 02/20/2024 Depression Screening and Follow-Up 02/20/2024 Health Care Proxy Review 02/20/2024 Social Drivers of Health Annual Screening 02/20/2024 Influenza Vaccine (Season Ended) 2024 12/08/2013 DTaP,Tdap,and Td Vaccines (4 - Td or Tdap) 03/15/2028 03/15/2018, 08/11/2005, 08/10/2005 Hepatitis B Vaccines Aged Out No long er eligible based on patient's age to complete this topic Insurance HSNO/FREE CARE MEDICARE [facility] Care Teams Cloud Consultant Relationship Specialty Start Date End Date Allan Allen [address] [place] [address] PCP - General Internal Medicine 09/09/20
--- OUTSIDE RECORDS SUMMARY | 2024-06-26 13:21 | XMS_ITS | Clinical Summary ---
Author Organization [facility] Address [address] [place] [id number] Phone Care Team Providers Care Chiller Hand Name Role Phone Theo Hutchins MD Unavailable Roby Hernández MD Primary Care Provider [phone] Roby Hernández MD Unavailable Allergies No known active allergies Medications Medication Sig Dispensed Refills Start Date End Date Status zolpidem (AMBIEN) 10 mg tablet Take 10 mg by mouth nightly at bedtime as needed for sleep. Active diphenhydrAMINE (BENADRYL) 25 mg capsule Take 25 mg by mouth as needed for itching (prn). Active testosterone (TESTIM) 50 mg/5 gram (1 %) transdermal gel tube Place 50 mg of testosterone onto the skin daily. 11/23/2021 Active MYRBETRIQ 25 mg Tb24 Take 1 tablet by mouth every morning. 06/19/2022 Active fluticasone propionate (FLONASE) 50 mcg/actuation nasal sprayIndications:PN D (post-nasal drip) spray 1 spray into each nostril every day 16 mL 11 06/13/2023 Active Additional Information Patient taking differently: 1 spray Nasal 2 times daily PRN, Reported on 09/12/2023 levothyroxine (SYNTHROID, LEVOTHROID) 100 MCG tabletIndications:A cquired hypothyroidism Take 2 tablets (200 mcg total) by mouth every morning. 180 tablet 3 07/18/2023 Active diclofenac sodium (VOLTAREN) 1 % GelIndications:Prim luan osteoarthritis of both knees APPLY 4 GRAMS TOPICALLY TO BOTH KNEES 3 TIMES A DAY 200 g 4 09/12/2023 Active calcium carbonate 500 mg (200 mg elemental) chewable tablet Take 2 tablets by mouth daily. Uses prn for GERD with effect Active butalbital-acetamin ophen-caffeine (FIORICET, ESGIC) 50-325-40 mg per tabletIndications:O ther headache syndrome Take 1 tablet by mouth nightly at bedtime. 30 tablet 2 11/23/2023 Active Additional Information Patient not taking.Reported on 03/19/2024 hydrOXYzine (VISTARIL) 25 MG capsuleIndications: Anxiety state Take 1 capsule (25 mg total) by mouth 3 (three) times a day as needed for itching. 90 capsule 2 12/17/2023 Active carisoprodol (SOMA) 350 MG tabletIndications:D egenerative disc disease, lumbar Take 1 tablet (350 mg total) by mouth 2 (two) times a day. TAKE 1 TABLET(350 MG) BY MOUTH TWICE DAILY 60 tablet 3 03/04/2024 Active verapamiL (CALAN) 40 MG immediate release tablet Take 1 tablet by mouth 2 (two) times a day. 02/28/2024 Active aspirin 81 MG EC tablet Take 81 mg by mouth daily. 01/29/2024 Active sertraline (ZOLOFT) 100 MG tabletIndications:a nxiety with depression Take 2 tablets (200 mg total) by mouth every morning. States takes 200mg a day- prescribed by Psychiatry- at [facility] Indications: anxiousness associated with depression 03/19/2024 Active meloxicam (MOBIC) 15 MG tabletIndications:C hronic migraine with aura without status migrainosus, not intractable Take 1 tablet (15 mg total) by mouth daily. 30 tablet 4 03/19/2024 Active albuterol 90 mcg/actuation inhalerIndications: Simple chronic bronchitis Inhale 1 puff into the lungs every 6 (six) hours as needed for shortness of breath/dyspnea. 8.5 g 3 05/20/2024 Active propranoloL (INDERAL) 20 MG immediate release tablet Take 1 tablet by mouth every morning. 04/28/2024 Active metoprolol succinate (TOPROL-XL) 50 MG 24 hr tablet Take 1 tablet by mouth every morning. 05/22/2024 Active HYDROcodone-acetami nophen (NORCO 10-325) 10-325 mg per tabletIndications:D egenerative disc disease, lumbar Take 1 tablet by mouth 4 (four) times a day for 28 days. Partial fill ok 112 tablet 06/14/2024 07/13/19 25 Active metoprolol succinate (TOPROL-XL) 25 MG 24 hr tablet Take 1 tablet (25 mg total) by mouth daily. 03/19/2024 06/03/19 25 Discontinu ed(No longer taking) HYDROcodone-acetami nophen (NORCO 10-325) 10-325 mg per tabletIndications:D egenerative disc disease, lumbar Take 1 tablet by mouth 4 (four) times a day for 28 days. Partial fill ok 112 tablet 05/17/2024 06/07/19 25 Discontinu ed(Reorder ) Active Problems Problem Noted Date Diagnosed Date Left lower quadrant abdominal pain 06/10/2024 Assessment & Plan (06/10/2024 4:24 PM EDT): Symptoms include left lower quadrant abdominal pain, nausea, and diarrhea for the past 3 days. Physical examination reveals tenderness to palpation along the left lower quadrant without rebound or guarding, however mild tenderness to palpation in all other quadrants. Likely differential includes diverticulitis, although patient is afebrile and hemodynamically stable. Will obtain urgent CT abdomen pelvis for further assessment. Patient advised to follow a bland diet and drink plenty of water. Discussed the reinitiation of omeprazole 40 mg x 2 weeks for reflux symptoms. Dependent on CT abdomen/pelvis, will consider antibiotic treatment if diverticulitis present. If fever, chills, hematochezia, or severe nausea and vomiting present, advised ER follow-up. He does have a history of prostate cancer, so malignancy to the colon or associated GI system cannot be ruled out. Gastroenteritis also possibility as he does have nausea and diarrhea, but less likely due to the location of the pain. Low suspicion for related disorders as his symptoms have been unchanged. Advised that he should have follow-up with GI regardless of what the CT abdomen pelvis as for further investigation as he does have a history of tubular adenoma colonoscopy in 2022 and has also noted associated bloating symptoms with his PCP. Severe obesity 06/02/2024 Major depressive disorder, single episode, moder ate 06/02/2024 Chronic migraine with aura w ithout status migrainosus, not intractable 03/19/2024 Dyspnea on exertion 12/17/2023 Multiple lacunar infarcts 11/23/2023 Overview (11/23/2023): Head CT done to eval chronic daily headache and dizziness, CT showed chronic lacunar infarct to right thalamus and chronic small vessel disease Assessment & Plan (12/17/2023 11:41 AM EDT): Obtain a lipid profile and low threshold to start a low-dose statin to reduce LDL. For now just the aspirin daily. And we encouraged him to consider consider or reconsider CPAP. Dilated aortic root 11/20/2023 Assessment & Plan (12/17/2023 11:40 AM EDT): He will follow-up with cardiology regarding this condition but it is not pressing that he is seen sooner. The dyspnea on exertion could be lung related and will have to follow-up on that but I would like to get a proBNP baseline through the chart. Tubular adenoma of colon 11/14/2023 Assessment & Plan (11/14/2023 12:40 PM EDT): Last CRC screen was 2019, he is overdue. I placed a ref back to GI, he will book the appt. Acute non-recurrent maxillary sinusitis 11/14/19 Assessment & Plan (11/14/2023 12:37 PM EDT): He appears to have left maxillary sinusitis on exam. This may be causing his headache/ nausea and dizziness- Will tx with Augmentin for sinusitis. Fluids, warm compress normal saline nasal spray all encouraged. Call if worse Vertigo 11/07/2023 Assessment & Plan (11/07/2023 12:24 PM EDT): He present today with intermittent Headache, dizziness and nausea. He had faint lateral nystagmus when looking right. Left TM was dull on exam, and he was significantly s/s when going from lying to sitting. I suspect he has a degree of vertigo contributing to his overall symptoms. He is on several medications, and I am not able to add meclizine due to drug to drug interactions. Will fax this note to his PT and see if they can help him with vestibular therapy as he is there for neck pain currently. He is using Flonase which can help dry up. Would also encourage good oral hygiene and Listerine gargle to help keep posterior pharynx well and help ET to drain normally. I am getting also labs, a neck film and a head CT since s/s have been ongoing for 2m. F/u 1 week Cardiac murmur, unspecified 11/07/2023 Overview (11/20/2023): Echo done showed pres EF at 65% + mod LVH , + regurgitation in mitral, aortic and tricuspid valves and dilated aortic root to 4.8, ref to cardiology placed Assessment & Plan (11/07/2023 12:29 PM EDT): He pres with headache, dizziness and nausea. His VSS, Exam with VERY subtle murmur on exam gr 1/6 loudest over 2ICSLSB. And possible 2ICSRSB. Heart sounds very faint. EKG SR 1 degree AV block, HR 61, Will get echo to assess further given s/s Nausea 11/07/2023 Assessment & Plan (11/14/2023 12:40 PM EDT): He is using TUMS with effect, cont same. If worse- go back to PPI once a day for 14 days then assess how he is feeling- He did have gastritis on EGD in 2019. His nauseas can be 2/2 this and the TUMS is not enough. He will consider daily PPI if s/s persist and he is not improving. I am also ref back to GI for eval he will call to book an appt Assessment & Plan (11/07/2023 2:28 PM EDT): He has intermittent nausea. He is taking a PPI, using it PRN. He has lost 3 lbs in 6 Mon. This is reassuring. He does not appear dehydrated, and is not orthostatic. I enc him to cont gentle diet of comfort food, maintain his hydration and call if worse. I will do blood work and head CT and neck film, f/u 1 week Malaise and fatigue 11/07/2023 Assessment & Plan (11/14/2023 12:38 PM EDT): B12 and folate ordered, he will do this at [facility]- Assessment & Plan (11/07/2023 2:29 PM EDT): Reporting headache/ nausea and dizziness for the past 2m. Doing labs- Exam reassuring. F/u 1 week Dizziness and giddiness 11/07/2023 Assessment & Plan (11/14/2023 12:41 PM EDT): Improved this week, educated on need to hydrate! Assessment & Plan (11/07/2023 2:26 PM EDT): He has dizziness- on exam it appears to be vertigo. He is not orthostatic, EKG, Glucose and VSS, exam all reassuring. I am ordering a CT of the head, neck film, doing blood work to evaluate fully. I will see him in a week to f/u Nonintractable headache 11/07/2023 Assessment & Plan (11/07/2023 2:24 PM EDT): He had a headache for the past 2 mon. It is intermittent and moves from back to front. He does have a dull left TM and s/s of vertigo with also faint nystagmus. I will get labs, neck film and a Head CT. He asked for a medication for the CT scan. Due to his other medications there drug to drug interaction is too great. I can not add anything additional. He was advised. He will try and was understanding. In the mean time I will see him in a week and he should call for any alonzo, worsening Neuropathic pain 09/12/2023 Xerostomia 06/13/2023 Assessment & Plan (06/13/2023 9:37 AM EDT): There is certainly a lot of medical reasons for having a dry mouth for example my Alex and also the Remeron. But the [place]'s tumor it would be also another good reason for the patient to be seen by ears nose throat and follow-up of the dry mouth but also the [place]'s tumor therefore we will refer to Dr. Moore in [facility]. COPD exacerbation 04/23/2023 LFT elevation 04/23/2023 Cervicalgia 04/02/2023 Assessment & Plan (11/14/2023 12:41 PM EDT): Cont PT- going well- cont same Assessment & Plan (11/07/2023 12:19 PM EDT): ROM full today and no pain on palpation. He is in PT for this. Will get Xray to eval. He is aware how to schedule. F/u 1 week Assessment & Plan (04/02/2023 6:50 PM EST): Concerning here is a fall and possible disc herniation cervical but no radiculopathy noted on exam, the neck stiffness is concerning though so we will obtain an x- ray of the cervical spine to look for fractures or malalignment. If persisting pain consider [place] spine and sports, or physical therapy for now heat 20 minutes on 10 minutes. So that he can get a better nights rest we might switch over at the end of the week from Vicodin to oxycodone for a week or so. No permanent switch however. Need urine tox screen today for protocol. 30-minute appointment with 25 minutes of [id number] time. Epididymo-orchitis, acute 05/23/2022 Assessment & Plan (05/23/2022 2:06 PM EDT): Because the patient is not tolerating the levofloxacin, will hold it and switch him to Bactrim double strength twice daily for 7 days. I want him to call in 7 days to let us know how the swelling is and how urination is going. Increased fluid intake to ensure good urination. For the swelling will write some naproxen 250 mg twice daily and will swap out temporarily the Vicodin for oxycodone start at half a tablet 4 times a day but may increase to a full tablet if needed 4 times a day. Patient does have tolerance from the Vicodin at 10 mg 4 times daily for many years regarding his lower back pain. Cold packs to the right inguinal region to help with symptoms. No signs of worsening infection. Discussed with the patient the possibility that this infection was spine from a prostate infection. Recommend seeing urologist to follow-up on this infection. May need a further course of antibiotics for example another 3 weeks. Patient found to have glucosuria but that might have been a urine due to Ringer lactate or some IV given in the ER. Most recent A1c was within normal range in March of this year. We will keep in mind though if he is having symptoms of hyperglycemia. Dyspepsia 04/04/2022 Assessment & Plan (09/12/2023 10:56 AM EDT): Counseled the patient that the omeprazole should be used sporadically as needed, even if he schedules it every other day or every third day that would be better for management of his acid indigestion. Myalgia 01/10/2022 Assessment & Plan (01/10/2022 3:25 PM EST): With the reported myalgias we will obtain a CPK to see if there is any muscle injury. Patient is not on a statin. S/P TURP 10/10/2021 Overview (10/10/2021): Dr Javier Hutchins in [facility] TUR 07/10 with good results and no complications. Routine general medical exam ination at a health care facility 06/22/2021 Assessment & Plan (06/02/2024 5:27 PM EDT): In regards to the patient's exam and negative for neurological deficits. Speech is normal form and content and no focal deficits. In regards to patient's blood pressure well-controlled and for cardiovascular assessment he continues on aspirin daily which we support as well as the metoprolol. No tobacco use. He is going back to the neurologist for reassessment. Would like him to be seen by ENT specifically for possible inspire consultation given the thalamic lacunar infarcts. Review of his cholesterol profile did not prompt me to write statin therapy. Assessment & Plan (01/03/2023 11:45 AM EST): Overall he is doing fairly well. His blood pressure is a little bit elevated and that could be the bladder medicine that is raising it since that is a very common side effect with that. We will recheck in 3 months and I encouraged him to check at home 2. He was lamenting the shortages on the Vicodin and I told him we could to increase the dosage to 5 mg if he is having shortages that would keep him out completely. I would only do so for a week until the 10 mg version was in stock. Follow-up with ENT postponed appointment to February. When he is ready we can refer him to orthopedic surgery in [facility] regarding knee pain and possible knee replacement. Assessment & Plan (06/22/2021 9:49 AM EDT): Today on the Medicare wellness visit we talked about the patient's various arthritic conditions. He has arthritis in his spine both upper and lower. Momentarily has a lot of knee pain with bilateral knee pain associated with severe osteoarthritis. He is hoping to get a total knee replacements after the summer, currently under trial of Synvisc or similar product in both knees through [facility]. He has a lot of neuropathic pain at night that is keeping up at night. I suggested gabapentin, patient would like to stay away from further medicine and we agree with the polypharmacy, therefore suggested CBD oil that can help both with anxiety and the neuropathic pain. Patient does complain that it is expensive but if he looks around I think he can find relative good pricing. And Dr. Mann, urologist in [place], will perform a TURP in the foreseeable future so that the patient could have better quality sleep. He has a lot of nocturia which does not help when he has to wear the CPAP mask to have quality sleep. Regarding CPAP, Dr. Elias had retired so patient will be on his request referred to [facility] sleep medicine to assess current CPAP settings and recommend adjustments. If the patient has tooth ache right upper jaw he should call me and I will help him out with an antibiotic for tooth abscess. He is currently working with dentistry to manage partial dentures, the pace that is used to hold the denture in place he is allergic to. He might be getting implants instead. Patient seeing Dr. 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 He is trying to get an MRI approved of the parotids to further assess. We will see the patient back for follow-up on all these chronic conditions including the opiates that we are writing for his osteoarthritic pain and lower back pain for many years already. Continue the Soma, patient tolerating. Primary osteoarthritis of both knees 05/31/2021 Assessment & Plan (10/10/2021 1:11 PM EDT): Patient reports possible arthroplasty through [facility] plan for fall. He presumes the right knee would be done first since that is more symptomatic. Currently getting knee injections every 3 months. Assessment & Plan (05/31/2021 5:42 PM EDT): Prednisone and diclofenac gel prescribed per the patient, referral to [facility] for further treatment and assessment. Hypogonadism in male 03/25/2021 Assessment & Plan (01/10/2022 3:21 PM EST): Hypergonadism is being managed through Dr. Mann who is also managing the patient's post external beam prostate radiation for prostate cancer. I made the patient aware of the effects of testosterone on the prostate regarding prostate cancer though I tempered this knowledge stating that the urologist should manage both of the prostate cancer aftercare and the testosterone supplementation. Assessment & Plan (03/25/2021 10:15 AM EST): Because of the history of prostate cancer the testosterone replacement is managed through urology and this is much better so but I would like to get a total testosterone level today and if it is off I will refer the results to the urologist taking care of him. Frequent urination 09/30/2020 Assessment & Plan (09/30/2020 12:03 AM EDT): Like know that that what he is frequency of urination with concern of UTI. Prostate had been radiated for prostate cancer. If urinalysis comes back positive will start antibiotic treatment. No systemic symptoms on exam noted. 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 There [place] tumors need to be followed up on and manage regarding reduce elevation and reassessment for malignancy. Assessment & Plan (10/10/2021 1:07 PM EDT): He did have an MRI not too long ago to follow-up on this condition. He is being followed by [facility] ears nose throat surgeons. Assessment & Plan (01/05/2021 7:08 PM EST): We can refer him to a different ears nose throat physician if he wishes. Assessment & Plan (09/30/2020 12:11 AM EDT): Patient notes that he has a follow-up with [facility] ears nose throat clinic for a sore parotid gland in the setting of [place]'s tumor. Today's assessment of the right periauricular area did not reveal any abscess that would require antibiotic at this time. Knee mass, right 03/05/2020 Assessment & Plan (03/05/2020 1:46 PM EST): Please see right knee pain for further details. Postural dizziness with presyncope 12/30/2019 Assessment & Plan (11/07/2023 12:26 PM EDT): Not orthostatic here today, exam,VSS, glucose stable and EKG stable . I am doing blood work, a neck film and head CT to eval further, and he will come back to see me in 1 week. In the mean time- rest, hydrate and eat well. Call if worse Assessment & Plan (12/30/2019 10:27 AM EST): From what he is describing it does not seem like he had been suffering any stroke like symptoms. Concern here is for orthostatic hypotension. Patient will require blood pressure cuff from son and then use it and report back to us his blood pressures. We encouraged him to drink beyond his thirst to cover any hydration deficits. Medications were reviewed and there was nothing new on the list that might of contributed to this. He is on the Celebrex long-term so he could be possibly positive for GI blood loss occult and anemia, PND (post-nasal drip) 12/12/2019 Assessment & Plan (09/12/2023 10:57 AM EDT): He is now working very closely with the locator specialist and has been found to have a lot of tree allergies. Further workup is occurring and he might have desensitization treatments later on this year. Assessment & Plan (12/12/2019 10:01 AM EDT): Both ears are clear, no fluid behind tympanic membranes, the symptoms he is expressing are without of eustachian tube dysfunction, trial Flonase 1 spray each nostril daily use for blocks of time 7 to 10 days for example before stopping. Do not start to the back of the throat. Follow-up 3 months Prostate cancer 05/20/2019 Overview (05/20/2019): Diagnosed Received radiation tx, PSA being followed by Dr Johnathan hoover urology Assessment & Plan (10/10/2021 1:07 PM EDT): We will have the patient followed up by urology for management of this issue. He is status postradiation but should be followed up periodically and we will obtain a PSA not this time around but in 3 months and compare with previous to see if there is any relapse. Assessment & Plan (06/23/2020 7:59 PM EDT): Patient denies any current urinary issues, PSAs are still within low range after radiation treatment patient followed by [facility]. Assessment & Plan (05/20/2019 4:57 PM EDT): Talked about his condition, will need to fill in the overview with dates of dx and tx. Ultimately he is doing well with low residual psa monitored by urology. Chronic bronchitis 05/20/2019 Assessment & Plan (12/17/2023 11:40 AM EDT): Based on the consult from pulmonology and the pulmonary function study we can help him with the dyspnea on exertion either referring back to pulmonology or trial of recommended inhalers such as Spiriva for example. Assessment & Plan (06/13/2023 9:36 AM EDT): With the shortness of breath and absence of signs of CHF, obtain pulmonary function study at [facility] and compare with previous. Continue Advair for now. Consider pulmonology referral if results come back positive. Assessment & Plan (04/23/2023 11:27 AM EST): Shortness of breath on exertion most likely COPD exacerbation, trial of Advair 250/50 take twice daily. Schedule DuoNebs 4 times daily. Going forward hold prednisone. In regards to weight gain some of it can be also be mirtazapine related. Therefore plan is to call in a nebulizer, continue with albuterol nebulizer solution 4 times daily and start Advair 1 puff twice daily. Will follow-up in 7 weeks on breathing. To prevent and treat sinus infection, irrigation is beltran. Currently hold off on prednisone. Oropharynx negative for signs of thrush. In regards to reduced salivation I am suggesting will set him up with [facility] for a second opinion. Wondering if there is a relationship with the [place]'s tumors. Some of it is also medicinal for example the mirtazapine. In 7 weeks we will discuss medications that could be held that might be partially responsible for the reduced salivation. In regards to his thyroid check TSH today and adjust levothyroxine as need be. In regards to the history of LFT elevation check LFTs and will consider ultrasound of the liver if need be. Assessment & Plan (10/10/2021 1:09 PM EDT): He wanted to make me aware that he was having nausea with guaifenesin. He had a cough sore throat about a week ago was advised to go to the ER when there was no availability here. Work-up there was negative for COVID or other debilitating diseases. He is feeling much better now though. We can continue the Flonase to reduce postnasal drip related cough, he will continue with albuterol and we have evaluated whether he is using it too much, if he does appear that its increasing use we will pursue steroid inhaler. Assessment & Plan (05/20/2019 4:59 PM EDT): Currently he only needs an inhaler infrequently. When we see him again, we should obtain PFTs to measure his VC and FEV1 Dental decay 03/19/2019 Assessment & Plan (10/10/2021 1:13 PM EDT): At the end of the visit he was complaining of the denture cream that holding dentures. The cream is causing burning rash in his mouth. We will need to find a different cream and should speak with his dentist about his options. Assessment & Plan (03/19/2019 5:48 PM EST): This patient is at moderate risk for complication for this relatively low risk procedure. We have performed an EKG that came back showing a normal sinus rhythm with first-degree AV block. The Q waves did not match over in the second lead such that this would represent a old infarct. There were no T wave inverted inversions and no ST elevations or depressions. Therefore baring any gross pathology of the labs ordered, this pt is an good candidate for the the proposed surgery. 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 It is unclear how many of these [place] tumors can become cancerous but it is undetectable that he would be denied an MRI for pre-existing problem that the ears nose throat physician feels requires pain MRI follow-up. We agree with the patient that he should switch back to not self medicate if they were more amenable to approving imaging and procedures. He will also wanted to see a dentist about dental decay but was denied by his insurance. Assessment & Plan (03/05/2020 1:48 PM EST): Patient has bilateral [place]'s tumors, was seeing or rather is still seeing Dr. Alex. He is aware that Dr. Alex in the next month will be either retiring or switching practices. We would advise him to follow-up with Dr. Alex before that halfway to see where he might be referred to. My own tendency would be to refer him out to [facility] if that does not occur since Dr. Alex had ties out to [facility]. Assessment & Plan (08/19/2019 4:18 PM EDT): This was assessed last year by Dr. Alex who found fluid within the right parotid however no cancer. This is presumably a cyst but it seems to be growing back again. Patient scheduled to see Dr. Alex in the coming months regarding this finding. It is right-sided though the left side is a little bit swollen as well. Assessment & Plan (05/20/2019 5:06 PM EDT): I received the consult from dr Alex regarding draining the cystic mass of the right parotid. 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 He has a f/u coming up soon with Dr Erwin, and so I suspect they wll be discussing the final diagnosis on that visit in May. For now the pt remains asymptomatic. Assessment & Plan (03/19/2019 5:35 PM EST): The right parotid mass was cystic in nature, was not full of purulence but rather serous fluid. The cytology and path report will be coming back soon. We await consult notes from the ears nose throat physician though it should not have any bearing on the upcoming tooth extraction. Assessment & Plan (01/13/2019 10:18 AM EST): Nontender enlargement of the right parotid in contrast to normal-sized left parotid. Unclear cause, delineate with ultrasound and consider ENT consult if persisting pathology or ultrasound report dictates. Prediabetes 12/23/2018 Assessment & Plan (04/04/2022 1:08 PM EST): Repeat a hemoglobin A1c again and if it is in normal limits then we will just do 1 yearly. If it is slightly prediabetic we will check another one this year. Assessment & Plan (01/10/2022 3:22 PM EST): Most recent assessment of prediabetes did not reveal an A1c above 5.7%. We can continue to follow this at least once a year but not needed right now. Assessment & Plan (10/10/2021 1:14 PM EDT): We should assess twice a year, last time was just within normal range. Assessment & Plan (03/25/2021 10:19 AM EST): Recheck a hemoglobin A1c to assess for developing prediabetes and diabetes. Should be on a low calorie diabetic diet for weight loss which would be beneficial for his joints I told him. Assessment & Plan (09/30/2020 12:03 AM EDT): We will repeat hemoglobin A1c today to assess for diabetes or diabetes especially going on Assessment & Plan (06/23/2020 7:59 PM EDT): He has been prediabetic before sometimes around 6% more recently just on the cusp of prediabetic to normal. We can continue to follow the A1c once or twice a year or more often if he becomes symptomatic. Assessment & Plan (03/05/2020 1:42 PM EST): We should assess and reassess the patient's prediabetes status twice year and the last time was I believe September and last year so we should really assess that now. This would be particularly important in regards to his wish to undergo a gastric sleeve procedure. Also to assess if he has slipped out of prediabetes and into avelina type 2 diabetes controlled or uncontrolled diet related. Assessment & Plan (12/12/2019 10:03 AM EDT): A1c should be done at least twice a year, let us obtain A1c and then in 3 months as well. Right now no antidiabetics. Patient will be put on an aspirin daily 81 mg. Assessment & Plan (05/20/2019 5:01 PM EDT): We should monitor his hb a1 c at least 2x this year, last measurement was early winter of last year, was 6..0%. no polyuria or polydipsia but nocturia, check in 3 months. Assessment & Plan (03/19/2019 5:32 PM EST): We checked in November A1c and the A1c came in lower than 5.7%. We will still follow this number every 6 months but is safe to say that his blood sugars are in good control. He does not need medicine though with his obesity and hyper INOCENCIO he should be mindful of his diet. Assessment & Plan (01/13/2019 10:20 AM EST): Prediabetes is still held in check but should be definitely reassessed 1 or 2 more times within a 12-month period. Discussion with the patient about diabetic diet and favoring exercise were possible even though patient has a lot of obstacles regarding his mobility. Patient has paresthesias of the feet that he thinks might be related to the prediabetes though we feel that the paresthesias are more due to degenerative disc disease and compression of sensory nerves within the sheathing of the lumbosacral nerve roots. Assessment & Plan (12/23/2018 9:51 AM EST): In the past he has had a A1c somewhat close to prediabetic and sometimes over the threshold but never diabetic. Now he is having polyphagia and so there is growing concern of possible elevated blood sugars. Check A1c today. Elevated blood pressure read ing without diagnosis of hypertension 12/23/2018 Assessment & Plan (03/05/2020 1:33 PM EST): I would like to reevaluate the patient's electrolytes and kidney status which we should do once a year in the context of previous issues with elevated blood pressure. We will also check a blood sugar for metabolic syndrome. Dyslipidemia 12/23/2018 Assessment & Plan (12/12/2019 10:02 AM EDT): At 1 point patient was on lovastatin for cholesterol. With his history of prediabetes we should repeat the lipid profile to see if he should go back on a statin or fibrate. Gastroesophageal reflux disease without esophagi tis 12/23/2018 Assessment & Plan (04/04/2022 1:09 PM EST): With the dyspepsia be reasonable to take the Prilosec 40 mg 3 times a week scheduled but not sporadically and I explained the rationale for him. If that still not adequate then please to take it daily. I recommend to the patient to go for a GI consult but he was not interested though if his symptoms persist and we could set him up with a GI doctor in 3 months and then he would be okay with that. So I will follow-up with him in 3 months and if he still having his mild diarrhea and dyspepsia heartburn then we will set up with [facility]. Popliteal cyst, right 10/28/2018 Assessment & Plan (03/05/2020 1:45 PM EST): Right popliteal pain plus a bulging that 1 can feel in the back of the knee possibly a Alvarez's cyst that could be drained to help alleviate some of the knee pain. Patient referred to physiatry [facility], we would like to thank Lexy in advance for seeing this patient. We will have the patient go for an ultrasound of the leg whereby it should be at [facility] and is mainly about this soft tissue mass which we feel is a Alvarez's cyst. I could not see how to order it other than how I ordered it and it is not really for rule out DVT. Assessment & Plan (10/28/2018 3:02 PM EDT): A common occurrence with degenerative joint disease the patient appears to have a right popliteal cyst that we would like to further analyze by means of ultrasound. He feels that draining the cyst could afford him some relief and so we shall refer him to our orthopedist here with prior ultrasound. Anxiety state 09/16/2018 Assessment & Plan (12/17/2023 11:41 AM EDT): Continue the hydroxyzine for anxiety attacks 25 mg 3 times a day may consider increase especially if at night to 50 mg. Assessment & Plan (10/10/2021 1:14 PM EDT): Soma helping for her back but also to help with anxiety. Assessment & Plan (10/10/2019 5:31 PM EDT): Patient was taken off of Ambien but started on temazepam through his psychiatrist. Some of the help for his nighttime anxiety is to help him tolerate the CPAP machine. Either way though he will need a nose pillow type CPAP mask. Perhaps if the patient's sleep is better controlled he will have less anxiety. Ambien will be restarted at 10 mg nightly as needed. He should definitely stop the temazepam that is writing. Check TSH to assess for hyperthyroidism. Assessment & Plan (09/16/2018 5:52 PM EDT): Right now he can take the Soma for back spasms and this doubles up and helps with a little bit with his anxiety. We still agree with psychiatry that he should not be on both Soma and clonazepam and the Soma is written for twice daily and that is probably strong enough. He is taking the Ambien at night through the psychiatry [facility] Dr. Sepulveda and we do note that he was recently admitted overnight at the hospital for palpitations and somatization of symptoms but ruled out for any malignant cause. Reviewing the medication profile he can continue on the Soma. INOCENCIO (obstructive sleep apnea) 09/16/2018 Assessment & Plan (11/07/2023 12:16 PM EDT): Not able to soco CPAP, anxiety Assessment & Plan (09/12/2023 10:55 AM EDT): Will continue to monitor him for side effects of the Ambien but were using the Ambien and allow him to sleep at night. He will work together with ENT regarding INOCENCIO. Assessment & Plan (03/05/2020 1:41 PM EST): We congratulate the patient on taking efforts to embrace the diagnosis of obstructive sleep apnea and finding ways around his anxiety wearing a CPAP mask. He is now using nasal pillows to tile helper him with his INOCENCIO and sleep. It has translated perhaps in a little bit of weight loss. In any case we will improve the patient's cardiovascular risk profile. One of the problems he is having now those that the CPAP mask strap is pressing up against the enlarged parotid tumor and he needs to find a new ENT. Assessment & Plan (03/19/2019 5:33 PM EST): We are very happy that he had decided to embrace the CPAP mask and try to do his best to keep it on for 4 hours a night. He will see great strides in energy for the next day and will be better for him overall in terms of his cardiovascular health. Assessment & Plan (01/13/2019 10:22 AM EST): Patient is working with a silk screen printer helper to start treatment for his obstructive sleep apnea. Previous attempts failed due to anxiety associated with mask. We feel that for his metabolic syndrome with treatment of the INOCENCIO will be very helpful especially with his energy levels. Assessment & Plan (12/23/2018 9:49 AM EST): Patient reports that he is seeing Dr. Elias and having a repeat sleep study performed in the coming weeks. In 3 months will ask him the status of things. For now he is not using CPAP machine but has a long-standing diagnosis of sleep apnea. In the past the CPAP machine was trialed and he had anxiety associated with wearing it. Assessment & Plan (09/16/2018 5:48 PM EDT): The patient's panic attacks are somewhat linked to his sleep apnea. He will stop breathing while sleeping and then since that he has not breathing and awakens into a panic. Consequently he has insomnia. He has a new CPAP machine that has been ordered but will be available until October. He is right now using Ambien to help with sleep and is taking 2 somas in the daytime that I am prescribing for his back pain with doubling up also for controlling his anxiety. He feels And Rightfully so the previous combination of Soma and both for his anxiety and back spasms. In part the need to dial back the Soma and discontinue the clonazepam was in the wake of safety measures for medications brought on by the pharmacy. He does have a record of being on clonazepam Soma and Vicodin without having shown signs of dizziness or dizziness in the office. That of course could be affecting his INOCENCIO adversely l though. 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 Hypothyroidism 09/16/2018 Assessment & Plan (11/07/2023 12:17 PM EDT): Taking medication, it was normal at last check, rechecking today given s/s Assessment & Plan (06/13/2023 9:36 AM EDT): Last TSH a couple months ago came back within target range so we can maintain the dosing as is. Assessment & Plan (04/04/2022 1:07 PM EST): We will repeat the TSH and adjust the levothyroxine accordingly. Currently no signs of hypo or hyperthyroidism. Assessment & Plan (01/10/2022 3:21 PM EST): He does not appear to have signs of hypothyroidism, will check a TSH status and adjust the Levoxyl if need be. He is currently taking 224 mcg. Assessment & Plan (10/10/2021 1:10 PM EDT): We shall repeat the TSH twice a year and today he would be due for a repeat. Adjust levothyroxine accordingly. He does tend to undulate between elevated and normal levels. Assessment & Plan (03/25/2021 10:18 AM EST): We will recheck a TSH free T4 and adjust levothyroxine accordingly. No overt signs of hypothyroidism so a slightly elevated TSH would not prompt changes in treatment. Assessment & Plan (09/30/2020 12:08 AM EDT): No signs of hypothyroidism clinically speaking but the patient's TSH should be monitored twice a year and its been at least 6 months. Readjust levothyroxine if need be. Assessment & Plan (06/23/2020 8:00 PM EDT): Rate incongruence between the TSH and free T4, patient not really behaving symptomatic for hypothyroidism with normal free T4. I would hold off on any changes. Assessment & Plan (03/05/2020 1:44 PM EST): Last TSH was extremely elevated so that was in September, now repeat TSH and adjust levothyroxine accordingly. He is taking 112 x 2 tablets. Assessment & Plan (10/10/2019 5:31 PM EDT): The increased anxiety might be due to hyperthyroidism. Check TSH today in the context of this visit. Assessment & Plan (03/19/2019 5:33 PM EST): No signs of clinical hypothyroidism, last time TSH was a little bit elevated but free T4 was normal. Obtain in the context of this consult a repeat TSH. Adjust Levoxyl if need be. Assessment & Plan (01/13/2019 10:25 AM EST): Discussion of the lab work showing slightly elevated TSH but normal free T4 levels. Continue current dosing of Levoxyl. Assessment & Plan (12/23/2018 9:49 AM EST): Back in the spring time his TSH was within normal limits, he should be on 224 mcg of Synthroid daily. No overt signs of hypo-or hyperthyroidism. Assess TSH for therapy efficacy. For now continue current dosing. Assessment & Plan (10/28/2018 3:03 PM EDT): The patient will be maintained on branded Synthroid 224 mcg daily. I have restructured the prescription to be branded and also 112 mcg x 2. There was previously confusion about his prescription. Assessment & Plan (09/16/2018 5:48 PM EDT): He is on a high dose of Levoxyl nonbranded but not showing any signs of hypothyroidism and so we can hold off on rechecking his levels until we see him again in 3 months. Continue current management with Levoxyl. Degenerative disc disease, lumbar 09/16/2018 Assessment & Plan (03/19/2024 10:42 AM EST): To help both with migraines but also for arthritic pain I will add on some Mobic full-strength 15 mg and this will also help with chronic knee pain. Patient should be mindful about any abdominal pain, gastric ulcers, nausea with the medicine. We can dial back to 7.5 mg if it is too strong. Will follow-up and perform a physical exam in 3 months. At that point we can do a U tox. Assessment & Plan (09/12/2023 10:58 AM EDT): We can renew a prescription that was helpful diclofenac that he was rubbing in on the lateral aspect of the knee and calf. For both back pain, musculoskeletal pain and posterior head and neck pain massage therapy through physical therapy, TENS units can be helpful. Neurontin will be prescribed to help with both the leg pain and the posterior headaches. [facility] referral to [facility]. Assessment & Plan (06/13/2023 9:35 AM EDT): Both for knee pain and back pain patient had Vicodin, as long as he let us know in advance he can switch pharmacies for example [facility] [place] might be a better fit for him if he feels that he is not getting good service at [facility] or [facility]. His urine tox screens come back within acceptable range. Assessment & Plan (04/04/2022 1:11 PM EST): Patient has multiple sources of pain but the 2 main sources are knees and lower back. Hence the Vicodin for this and yet has also a nonsteroidal also on board. The nonsteroidal could be source of his dyspepsia so we need to keep that in mind. We will continue on the Vicodin and obtain urine tox screens going forward. No change in dosing. Assessment & Plan (01/10/2022 3:23 PM EST): True to protocol we should obtain a urine tox screen today, maintain management Vicodin. Assessment & Plan (03/25/2021 10:16 AM EST): Continue Vicodin, Celebrex for degenerative joint related pain. Add on 4 g of fish oil daily to help reduce arthritic pain. Urine tox screen today. Assessment & Plan (01/05/2021 7:09 PM EST): We can continue with the Vicodin as previously prescribed as well as the Soma. The patient is safe with the medicine. I see him on a quarterly basis at which point I will address other issues such as his prediabetes and hypothyroidism. Assessment & Plan (09/30/2020 12:11 AM EDT): Lumbar pain stable, continue Vicodin as previously arranged. Assessment & Plan (03/05/2020 1:46 PM EST): Please see my comments above regarding obesity but basically with weight loss the patient can expect a lot less back pain and we may be able to take him off of the hydrocodone I been writing for 14 years. Assessment & Plan (12/12/2019 10:01 AM EDT): Maintain on the appointment for degenerative disc disease and degenerative joint disease of the knees. Treatment is adequate, continue to 4 times daily, urine tox screen in order, repeat urine tox screen in 3 to 4 months. Assessment & Plan (08/19/2019 4:17 PM EDT): Lumbar stenosis with no sciatica but rather lower back pain treated with Vicodin since many years now, recent urine tox screen coming back as expected. No constipation. Tolerance of the medicine has been in play for a long time now. Patient recently started on Celebrex and is finding that supplemental nonsteroidal is helpful. Urologist wrote for the Celebrex to initiate and said that I would continue using it. We can modify the dose upwards or downwards depending on GI symptoms and efficacy. Assessment & Plan (05/20/2019 5:03 PM EDT): It would be good to image his back but also examine his knees as well as his back. Consider order mri back next time we see him in the office. I told him that I couldn't order the mri without examining him. Continue the vicodin along with the soma for pain support, limited use of ibuprofen 800 mg ok. Will need to monitor bp. Assessment & Plan (03/19/2019 5:34 PM EST): Of note patient on pain management with Vicodin for lower back pain. 10 mg 4 times daily, if the patient receives perioperative pain management through the oral surgeon then he should hold the Vicodin and not take at the same time, patient has voiced his understanding of this. Assessment & Plan (12/23/2018 9:53 AM EST): Continue Vicodin for chronic lower back pain which she is been on now for at least 10 years. Back pain stable on current management. Assessment & Plan (10/28/2018 3:01 PM EDT): His lower back pain must be considered when he talks about his right leg pain. He has some paresthesia and numbness in both legs but I feel that this is due to the spinal stenosis post surgical. Symptoms he is describing sound suspicious for popliteal cyst. Please see my discussion manner. We can continue the Vicodin and the Soma for his lower back pain as we have been doing over the years. Urine tox screen today. Assessment & Plan (09/16/2018 5:49 PM EDT): He will need to sign a pain management contract today and we can then continue writing the Vicodin at 10 mg 4 times daily as we have been for many years now. The other center and had started to taper him off of it though his back pain and knee pain are legitimate requiring the Vicodin. Right knee DJD 09/16/2018 Assessment & Plan (08/19/2019 4:21 PM EDT): I encouraged the patient to see Dr Cruz for a right-sided cortisone shot to the knee that was helpful in 2 months previous. Weight loss of course will help immensely. Assessment & Plan (12/23/2018 9:52 AM EST): Patient reports that he had been seen by the orthopedist and referred him to and a steroid injection was trialed which appears to be working fairly well. Patient was told that he may need a knee replacement in the distant future. Assessment & Plan (09/16/2018 5:53 PM EDT): In the right knee there appears to be some fluid collection posterior aspect, we suggest patient be seen again by Dr. Varma for follow-up. Recently he was given a knee brace for the right knee and so perhaps this area could be drained. He will set up again with the orthopedist with whom he already had recent contact. Obesity due to excess calories with serious naren rbidity 09/16/2018 Assessment & Plan (03/25/2021 10:20 AM EST): Some of the obesity is from increased [place] levels brought on by his INOCENCIO. We encouraged him to use the CPAP machine and make sure he gets plenty of sleep. Otherwise calorie restriction and as much movement as possible. Assessment & Plan (06/23/2020 8:02 PM EDT): Discussion of weight loss and discussion of her ejection from the insurance as it pertains to the gastric sleeve procedure that he sought to obtain. We told the patient that most likely the insurance company would not cover him if the BMI was less than 39 unless he were diabetic or had some other comorbidity that was on a check list. Patient understood this but felt that he would have benefited from the surgery. We try to encourage him to embrace a diet structure that would slowly reduce pounds over time and be something that was over the long haul achievable. He has a lot of issue with stress eating and does make some poor food choices that leads to persisting weight and slow weight gain. Assessment & Plan (03/05/2020 1:44 PM EST): For several years now this patient has been trying to lose weight without any success he had spoken with his family and friends, people from the [employer]. One of his friends lost a lot of weight with a gastric sleeve procedure. Certainly weight loss would be very good for decompression of his lumbar spine which would result in fewer back and leg symptoms but also his severe degenerative joint disease of the knees hips ankles but particularly the knees would result in much better movement and indirect improvements in his cardiovascular profile and improvements in his quality of life. We will set the patient up with Marvin Elam at [facility]. Assessment & Plan (08/19/2019 4:19 PM EDT): We advised the patient to look into Nutrisystem for men for weight loss that would affect his right knee pain and back pain as well. I discussed this at length with the patient and he sees the benefit both for breathing as one loses weight but also for degenerative joint disease of the right knee. The platform Nutrisystem may be beneficial. Assessment & Plan (01/13/2019 10:26 AM EST): Patient would like me to look into a bariatric procedure for weight loss that is minimally invasive that he said associated with laser treatments within the abdomen. I do not know what he was talking about but he will find out and then I will research it and see if it is available whether this is something that he should pursue. In the meantime we gave him some pointers on diet that would help with his cravings, particularly apples and pears for hunger to have at the ready., Metamucil sugar- free 20 minutes before dinner 1 tablespoon could be helpful for regulating bowel movements. Assessment & Plan (12/23/2018 9:50 AM EST): counseled the pt on eating a low calorie diet to reduce excess weight. We talked about calorie restriction, weight watchers and exercise as possible to help move weight in the right direction. Assessment & Plan (10/28/2018 3:03 PM EDT): We are delighted to hear that he had lost some weight, we encouraged him to continue this as it would help both with back pain paresthesias and joint bearing pain. Assessment & Plan (09/16/2018 5:54 PM EDT): The seriousness of the obesity lies in its effect on his obstructive sleep apnea and the risks that are associated with that as well as coronary artery disease and heart attack. Also his lower back would be a little bit the decompressed if he were to lose weight. Pure hypercholesterolemia 09/16/2018 Assessment & Plan (01/13/2019 10:21 AM EST): Of the lab work, we should reassess lipid profile at least once a year, was on statin therapy many years ago, lovastatin specifically, here if diabetic would have suggested going back on statin therapy but patient has good HDL and only borderline total cholesterol. We will hold off at this time regarding restarting a statin and work on diet to reduce total cholesterol. Assessment & Plan (12/23/2018 9:50 AM EST): This patient was previously on lovastatin for cholesterol and I would like to recheck the cholesterol today especially in the context of seeing if he is prediabetic. Assessment & Plan (09/16/2018 5:53 PM EDT): Previously had been on low-dose lovastatin but had some follow-up cholesterol levels that came back within target range off of the statin therapy. We can follow-up with a total cholesterol and direct LDL when we obtain a TSH next time. Thoracic outlet syndrome 06/14/2015 Resolved Problems Problem Noted Date Diagnosed Date Resolved Date BPH with obstruction/lower u rinary tract symptoms 05/20/2019 10/10/2021 Overview (05/20/2019): nocturia Assessment & Plan (05/20/2019 5:19 PM EDT): We discussed his symptoms. His nocturia had improved with add on of ditropan xl, to calm his bladder down. Pt is following up with dr Mann regarding these symptoms and regarding the prostate cancer s/p radiation tx. For now no signs of uti. A virtual visit was used during the COVID- crisis in place of an in-person visit. I personally spen t20 minutes with the patient during this real-time interactive virtual clinical encounter, which was conducted using telephone-only technology, and >50% of which was devoted to counseling and coordinating care for the above issues. Consent for virtual care, including informing the patient that insurance will be billed, was discussed at the time of scheduling. Gross hematuria 12/23/2018 05/20/2019 Assessment & Plan (01/13/2019 10:24 AM EST): The patient finished up 3 days ago the Levaquin that I prescribed presumably for a hemorrhagic prostatitis, he is still having a little bit of bleeding on and off and the results were equivocal regarding the antibiotic. We will hold off on repeat antibiotic and defer to judgment of the urologist that is seeing him for the hematuria. Right now no overt signs of acute prostatitis. Assessment & Plan (12/23/2018 9:53 AM EST): 2 days ago gross hematuria, patient reported this to his urologist who is treating him for prostate cancer. The hematuria was fleeting, currently not on aspirin. He had a little bit of dysuria as well, check urinalysis and if signs of infection start treatment for this. Acute infective otitis externa, right 09/16/2018 05/20/2019 Assessment & Plan (09/16/2018 5:50 PM EDT): He was prescribed Cortisporin orthotic for his right ear and we assessed the ear again and saw that there was quite a bit of earwax within however no signs of purulence or acute infection. He will finish up the Cortisporin and we can reassess his ear in 3 months. To keep the earwax out he can insert a week solution of hydrogen peroxide which will also take care of any apparent bacterial infections. Encounters Date Type Department Care Team Description 06/24/2024 1:58 PM EDT - 06/24/2024 11:59 PM EDT Hospital Encounter [address] [address] Linda Do PA-C Arrived Discharge Disposition: Home or Self Care 06/16/2024 Procedure Pass [address] [address] 06/16/2024 Telephone [facility] Internal Medicine [address] [place] [address] Roby Hernández MD CT scan 06/16/2024 Orders Only [facility] Internal Medicine [address] [place] [address] Linda Do PA-C Abnormal finding on imaging (Primary Dx); Adrenal nodule 06/15/2024 9:46 AM EDT - 06/15/2024 11:59 PM EDT Hospital Encounter [facility], [facility] [address] [place] [address] Linda Do PA-C Discharge Disposition: Home or Self Care 06/10/2024 4:00 PM EDT Office Visit [facility] Internal Medicine [address] [place] [address] Linda Do PA-C Left lower quadrant abdominal pain (Primary Dx) 06/10/2024 Procedure Pass [facility], [facility] [address] [place] [address] 06/10/2024 Telephone [facility] Internal Medicine [address] [place] [address] Roby Hernández MD LLQ pain 06/06/2024 Refill [facility] Internal [facility] [address] [place] [address] Roby Hernández MD Medication Refill ([facility] [place] ) 06/05/[address] [address] Roby Hernández MD Vein testing 06/02/2024 11:30 AM EDT Office Visit [facility] Internal Medicine [address] [place] [address] Roby Hernández MD Routine general medical examination at a health care facility (Primary Dx); Uncomplicated opioid dependence; Severe obesity; Major depressive disorder, single episode, moderate; Simple chronic bronchitis; INOCENCIO (obstructive sleep apnea); Multiple lacunar infarcts 06/02/2024 Orders Only [facility] Internal Medicine [address] [place] [address] Roby Hernández MD 05/20/2024 Refill [facility] Internal Medicine [address] [place] [address] Roby Hernández MD Medication Refill 05/09/2024 Refill [facility] [address] [place] [address] Roby Hernández MD Med[facility] ([facility] [place] [facility] 04/11/2024 Refill [facility] [address] [place] [address] Roby Hernández MD Medication Refill ([facility] [place] ) from Last 3 Months Immunizations Name Administration Dates Next Due Influenza Trivalent w/ Preservative IM 4 Td (adult) 5 Lf Tetanus Toxoid, PF, Adsorbed Td (adult),2 Lf Tetanus Toxoid, PF, Adsorbed Tdap 08/10/2005 Family History Medical History Relation Comments Heart disease Mother Lung cancer Paternal Cousin 1 Cancer Paternal Cousin 2 jaw cancer Relation Status Comments Father Mother Paternal Cousin 1 Alive Paternal Cousin 2 Alive Social History Tobacco Use Types Packs/Day Years Used Date Smoking Tobacco: Former Cigarettes 3 27 1 962 - 1988 Passive Smoke Exposure: Never Smokeless Tobacco: Never Tobacco Cessation:Counseling Given: Not Answered Alcohol Use Standard Drinks/Week Comments Not Currently [...] Orientation Straight 10/10/2021 11 :33 AM EDT Last Filed Vital Signs Vital Sign Reading Time Taken Comments Blood Pressure 122/78 06/10/2024 3:52 PM EDT Pulse 55 06/10/2024 3:52 PM EDT Temperature 36.4 ??C (97.5 ??F) 06/10/2024 3:52 PM ED T Respiratory Rate 17 06/10/2024 3:52 PM EDT Oxygen Saturation 95% 06/10/2024 3:52 PM EDT Inhaled Oxygen Concentration - - Weight 116.1 kg (256 lb) 06/10/2024 3:52 PM EDT Height 175.3 cm (5' 9.02 ) 06/10/2024 3:52 PM ED T Body Mass Index 37.79 06/10/2024 3:52 PM EDT Plan of Treatment Upcoming Encounters Date Type Department Care Team (Late st Contact Info) Description 10/08/2024 11:00 AM EDT Appointment [facility] Internal Medicine [address] [place] [address] Roby Hernández MD [address] [place] [address] [email or web address] Health Maintenance Due Date Last Done Comments PNEUMOCOCCAL VACCINES (50+ years) (1 of 2 - PCV) 05/29/1970 ZOSTER VACCINES (1 of 2) 05/29/1970 COLOGUARD 05/29/1996 FIT TEST 05/29/1996 FOBT 05/29/1996 SIGMOIDOSCOPY 05/29/1996 VIRTUAL COLONOSCOPY 05/29/1996 RSV VACCINE (1 - Risk 60-74 years 1-dose series) 2011 COLONOSCOPY 03/18/2023 03/18/2018 COLORECTAL CANCER SCREENING 03/18/2023 COVID-19 VACCINE ( - season) 2023 TSH LEVEL 11/06/2024 11/07/2023, 03/0 05/2023, 04/04/2022, Additional history exists DEPRESSION SCREENING 06/02/2025 06/02/2024, 03/19/19 25 Adult Td,Tdap Booster 03/15/2028 03/15/2018 , 08/11/2005, 08/10/2005 LIPID PANEL 05/29/2029 05/29/2024, 11/20, 12/12/2019, Additional history exists HEPATITIS C SCREENING Completed 09/10/2018, 019 REPEAT PHQ Completed 06/02/2024, 03/19/2024 SMOKING STATUS SCREENING (Once After 26 Yrs) Completed 06/10/2024 ABDOMINAL AORTIC ANEURYSM (AAA) SCREENING Completed 06/15/2024, 12/11/2016 HEPATITIS A VACCINES Aged Out No long er eligible based on patient's age to complete this topic HIB VACCINES Aged Out No longer eligi ble based on patient's age to complete this topic MENINGOCOCCAL VACCINES (ACWY) Aged Out No longer eligible based on patient's age to complete this topic Medical Devices Not on file Procedures Procedure Name Priority Date/Time Associated Diagnosis Comments CT ABDOMEN/PELVIS WITH CONTRAST Urgent/patient waiting 06/15/2024 10:44 AM EDT Left lower quadrant abdominal pain LIPID PANEL Routine 05/29/2024 11:39 AM EDT NT-PROBNP Routine 05/29/2024 11:39 AM EDT IMMUNOGLOBULIN A Routine 05/29/2024 11:3 9 AM EDT IMMUNOGLOBULIN M Routine 05/29/2024 11:3 9 AM EDT IMMUNOGLOBULIN G Routine 05/29/2024 11:3 9 AM EDT OUTSIDE MR IMAGING REPORT ONLY Routine 05/05/2024 11:33 AM EDT TSH WITH REFLEX Routine 11/07/2023 11:47 AM EDT Nonintractable headache, unspecified chronicity pattern, unspecified headache type Dizziness and giddiness Malaise and fatigue Nausea OUTSIDE HEPATITIS C VIRUS SCREENING Routine 09/10/2018 COLONOSCOPY FOR RESULT ENTRY ONLY Routine 03/18/2018 from Last 3 Months or Most Recently Relevant to Health Maintenance Results * CT ABDOMEN/PELVIS WITH CONTRAST (06/15/2024 10:44 AM EDT) MGB IMG RECOMMENDATION COMMENT Bilateral adrenal nodules [facility] Anatomical Region Laterality Modality Abdomen, Pelvis Computed Tomogra phy 06/15/2024 11:0 1 AM EDT Impressions 06/15/2024 11:12 AM EDT 1. ??Diverticulosis without evidence of diverticulitis. 2. ??Mild fatty liver. Thyromegaly. 3. ??Bilateral adrenal nodules. Adrenal protocol CT is recommended for definitive characterization. Narrative 06/15/2024 11:[address] ABDOMEN/PELVIS WITH CONTRAST Referring clinician's provided indication for this examination in Epic: * LLQ abdominal pain TECHNIQUE: Multidetector-row CT of the abdomen and pelvis was performed after administration of intravenous contrast using tailored dose modulation techniques. Images were reconstructed in the axial, coronal, and sagittal planes. COMPARISON: None available FINDINGS: Lower Chest: Mild dependent hypoventilatory change. Atherosclerotic calcification of the coronary arteries and aortic annulus and leaflets. Liver: The liver demonstrates mildly decreased hepatic attenuation which decreases sensitivity for detection of focal hypoattenuating lesions. Within this limitation,there are no suspicious focal hepatic lesions. Biliary: No biliary ductal dilatation. Spleen: The spleen measures 14.6 cm in craniocaudal dimension. Pancreas: No masses or ductal dilatation. Adrenal Glands: 1.3 x 1.4 cm right adrenal nodule (series 3, image 29), left adrenal nodule measuring 1.9 x 1.5 cm and lateral limb left adrenal nodule measuring 1.9 x 1.4 cm (image 31). Kidneys/Ureters: No solid masses, stones, or hydronephrosis. Subcentimeter hypoattenuating focus in the anterior right mid kidney, favored to represent a cyst. Bowel: There is no evidence of intestinal obstruction. Segments of the colon are collapsed and suboptimally assessed. Diverticulosis. No diverticulitis. The appendix is visualized and is normal. Peritoneum/Retroperitoneum: No masses, pneumoperitoneum, or fluid. Lymph Nodes: No lymphadenopathy. Pelvic Organs/Bladder: Few metallic seeds within the prostate gland. Vessels: No abdominal aortic aneurysm. Mild atherosclerotic vascular calcification. Patent main portal vein. Replaced left hepatic artery. Bones/Soft Tissues: Heterogeneous osseous demineralization. Multilevel degenerative changes of the thoracolumbar spine. Nonspecific edema within the superficial soft tissues of the back. Degenerative changes of the hips and symphysis pubis. Few lucent foci, for example within the the L3 vertebral body, likely an osseous hemangioma. Procedure Note Estefany Walton MD - 06/15/2024 CT ABDOMEN/PELVIS WITH CONTRAST Referring clinician's provided indication for this examination in Epic: *LLQ abdominal pain TECHNIQUE: Multidetector-row CT of the abdomen and pelvis was performedafter administration of intravenous contrast using tailored dosemodulation techniques. Images were reconstructed in the axial, coronal,and sagittal planes. COMPARISON: None available FINDINGS: Lower Chest: Mild dependent hypoventilatory change. Atheroscleroticcalcification of the coronary arteries and aortic annulus and leaflets. Liver: The liver demonstrates mildly decreased hepatic attenuation whichdecreases sensitivity for detection of focal hypoattenuating lesions.Within this limitation,there are no suspicious focal hepatic lesions. Biliary: No biliary ductal dilatation. Spleen: The spleen measures 14.6 cm in craniocaudal dimension. Pancreas: No masses or ductal dilatation. Adrenal Glands: 1.3 x 1.4 cm right adrenal nodule (series 3, image 29),left adrenal nodule measuring 1.9 x 1.5 cm and lateral limb left adrenalnodule measuring 1.9 x 1.4 cm (image 31). Kidneys/Ureters: No solid masses, stones, or hydronephrosis. Subcentimeterhypoattenuating focus in the anterior right mid kidney, favored torepresent a cyst. Bowel: There is no evidence of intestinal obstruction. Segments of thecolon are collapsed and suboptimally assessed. Diverticulosis. Nodiverticulitis. The appendix is visualized and is normal. Peritoneum/Retroperitoneum: No masses, pneumoperitoneum, or fluid. Lymph Nodes: No lymphadenopathy. Pelvic Organs/Bladder: Few metallic seeds within the prostate gland. Vessels: No abdominal aortic aneurysm. Mild atherosclerotic vascularcalcification. Patent main portal vein. Replaced left hepatic artery. Bones/Soft Tissues: Heterogeneous osseous demineralization. Multileveldegenerative changes of the thoracolumbar spine. Nonspecific edema withinthe superficial soft tissues of the back. Degenerative changes of the hipsand symphysis pubis. Few lucent foci, for example within the the [id number] body, likely an osseous hemangioma. IMPRESSION: 1. Diverticulosis without evidence of diverticulitis. 2. Mild fatty liver. Thyromegaly. 3. Bilateral adrenal nodules. Adrenal protocol CT is recommended fordefinitive characterization. Linda Do PA-C IMG CT ABD/PELVIS * NT-proBNP (05/29/2024 11:39 AM EDT) Historical Provider LAB BLOOD ORDERAB LES * Immunoglobulin A (05/29/2024 11:39 AM EDT) Historical Provider LAB BLOOD ORDERAB LES * Immunoglobulin M (05/29/2024 11:39 AM EDT) Historical Provider LAB BLOOD ORDERAB LES * Immunoglobulin G (05/29/2024 11:39 AM EDT) Historical Provider LAB BLOOD ORDERAB LES * Lipid panel (05/29/2024 11:39 AM EDT) HDL - External 54 Cholesterol, Total - External 130 Triglycerides - External 207 LDL, calculated - External 131 Cardiac Risk Ratio - External Non-HDL Cholesterol - External Historical Provider LAB BLOOD ORDERAB LES * Outside MR Imaging Report Only (05/05/2024 11:33 AM EDT) Historical Provider IMG MR * TSH with reflex (11/07/2023 11:47 AM EDT) Pathologist [facility] TSH 1.64 0.27 - 4.20 uIU/mL [facility] Blood 11/07/2023 11:4 7 AM EDT 11/07/2023 11:53 AM EDT Libia Gomez NP LAB BLOOD ORDERABLES [facility] [address] [place] [address] * Outside Hepatitis C Virus Screening (09/10/2018) Pathologist [facility] Hepatitis C Screening - External Neg Historical Provider LAB BLOOD ORDERAB LES * HM COLONOSCOPY FOR RESULT ENTRY ONLY (03/18/2018) Historical Provider [facility]INTENLEN[facility] E from Last 3 Months or Most Recently Relevant to Health Maintenance Care Teams Chiller Hand Relationship Specialty Start Date End Date Roby Hernández MD [address] [place] [id number] [email or web address] PCP - General Internal Medicine 03/04/20 Theo Hutchins MD Urology 08/19/19 Roby Hernández MD [address] [place] [id number] [email or web address] Insurance Assigned Provider 05/25/24 Additional Source Comments The information contained in this document represents components of the legal health record. It is not the complete legal health record.[facility]
== END 2024-06-26 12:20 | disposition home or self-care (01) ==
LOC: HO.HUSH 11:46
PROVIDERS: PCP Internal Medicine; Visit Provider Nurse Practitioner Family
DX: Z13.9 Encounter for screening, unspecified (principal)

== ENCOUNTER → 2024-06-26 11:46 | Outpatient (BNVA) | payer MEDICARE, OTHER, SELFPAY | PROVIDERS: PCP Internal Medicine; Visit Provider Nurse Practitioner Family | DX: C61 Malignant neoplasm of prostate (principal); E29.1 Testicular hypofunction; R39.15 Urgency of urination; N30.40 Irradiation cystitis without hematuria | CPT/HCPCS: 51798; 81003; 99212 ==

== ENCOUNTER 2024-09-09 11:53 | Outpatient (AMB) | payer MEDICARE, MEDICAID, SELFPAY ==
--- OUTSIDE RECORDS SUMMARY | 2015-07-16 | XMS_ITS | Encounter Summary ---
Author Organization [facility] Address [address] [place] [address] [place] [phone] Phone Care Team Providers Care Vessel Welder Name Role Phone Roby Hernández MD Primary Care Provider [phone] Encounter Details Date Type Department Care Team (Late st Contact Info) Description 07/16/2015 Hospital Encounter [facility] [address] [place] [address] Charan Marsh MD 55 [facility] [address] [address] [place] [address] [email or web address] Social History Tobacco Use Types Packs/Day Years Used Date Smoking Tobacco: Former Cigarettes 3 17 03 962 - 1988 Passive Smoke Exposure: Never Smokeless Tobacco: Never Alcohol Use Standard Drinks/Week Comments Not Currently 0 (1 standard drink = 0.6 oz pur e alcohol) last drink 1979 Child or Family Care Answer Date Record ed Do you have problems with on e of the following making it difficult for you to work, study, or receive health care? I choose not to answer 06/02/2024 Education Answer Date Recorded Are you interested in more education? Not on nena e 06/16/2022 Are you concerned about learning? Not on file 06/16/2022 No 06/16/2022 No 06/16/2022 Food Answer Date Recorded Within the past 6 months we worried whether our food would run out before we got money to buy more. I choose not to answer 06/02/2024 Within the past 6 months the food we bought just didn't last and we didn't have enough money to get more. I choose not to answer 06/02/2024 Residential Stability Answer Date Recor ded What is your housing situation today? I have lukas goodwin 06/02/2024 How many times have you move d in the past 12 months? Zero (I did not move) 06/02/2024 Paying for Meds Answer Date Recorded Do you have trouble paying for medicines? Yes 06/02/2024 Paying Utility Bills Answer Date Record ed Do you have trouble paying your heating or elect ricity bill? Yes 06/02/2024 Transportation Answer Date Recorded Has the lack of transportati on kept you from medical appointments or from getting medications? No 06/02/2024 Digital Access Answer Date Recorded Yes 06/02/2024 Yes 06/02/2024 Do you have reliable internet access at home? No 06/02/2024 Do you have a device (e.g., phone, tablet, computer) with a working camera? Yes 06/02/2024 Intimate Partner Violence Answer Date R ecorded Denied Basic Needs Not on file 06/02/2024 In the past 12 months have y ou been in a relationship with a person who hurts, threatens, or tries to control you? No 06/02/2024 Worried food would run out Not on file 06/02 In the past 12 months have y ou been in a relationship with a person who hurts, threatens, or tries to control you? No 06/02/2024 Sex and Gender Information Value Date Recorded Sex Assigned at Male 10/10/2021 11:33 AM EDT Legal Sex Male 11:34 AM EDT Gender Identity Male 10/10/2021 11:33 AM EDT Sexual Orientation Straight 10/10/2021 11 :33 AM EDT documented as of this encounter Plan of Treatment Upcoming Encounters Date Type Department Care Team (Late st Contact Info) Description 10/08/2024 11:00 AM EDT Office Visit [facility] [address] [place] [address] Roby Hernández MD [address] [place] [address] documented as of this encounter Procedures Procedure Name Priority Date/Time Associated Diagnosis Comments [place] CARDIAC OUTSIDE (NO INTERPRETATION) Routine 07/16/2015 12:00 AM EDT documented in this encounter Results * [place] Cardiac Outside (No Interpretation) (07/16/2015 12:00 AM EDT) Narrative [facility] [place] [place] IMG INTERFACES - 08/12/2015 3:33 PM EDT This study is for PACS storage only and not for interpretation. Procedure Note SYSTEMGENERATED, DOCUMENTATION - 08/12/2015 This study is for PACS storage only and not for interpretation. us Charanflako Marsh MD IMG OUTSIDE IMAGING W/OUT INTE RPRETATION Final Result [facility] [place] [place] IMG INTERFACES documented in this encounter Visit Diagnoses Not on filedocumented in this encounter Additional Health Concerns Infection Onset Date Last Indicated Resolved Time CoV-Risk 08/04/2019 08/04/2019 08/18/2019 1:24 AM EDT CoV-Risk 08/20/2020 08/20/2020 08/30/2020 1:24 AM EDT CoV-Presumed 07/05/2021 07/05/2021 07/26/2021 1:21 AM EDT documented as of this encounter Care Teams Vessel Welder Relationship Specialty Start Date End Date Roby Hernández MD [address] [place] [phone] PCP - General Internal Medicine 03/11/15 03/03/20 documented as of this encounter Additional Source Comments The information contained in this document represents components of the legal health record. It is not the complete legal health record.[facility]
--- NOTE | 2024-09-09 12:12 | MHC.OFFVIS ---
Intake Visit Reasons: Follow up Allergies codeine (Tylenol-Codeine #3) Allergy (Mild, Verified 06/26/24 12:56) unknown Iodinated Contrast Media (IV CONTRAST) Allergy (Mild, Verified 06/26/24 12:56) HIVES HPI Comments Details: 74 yo RH man with h/o low back surgery and chronic back pain treated with hydrocodone, INOCENCIO on CPAP but not using the machine, was here for headaches. Pattern of headaches suggested migraine. His CAT scan of brain in 2023 at [facility] revealed mild cerebral atrophy and mild chronic microvascular ischemic changes. An MRI of brain in [place] in April of 2024 revealed moderate microvascular ischemic changes, a chronic right thalamic infarct, but otherwise no significant abnormality. His sed rate in January of 2024 was 14, and labs for rheumatoid factor, CPK, troponin my antibody, and Lyme antibodies were negative. He continues to have headaches and stated that he was going to have a sleep study and was being considered for alternate treatment of sleep apnea as he could not tolerate the machine. [facility] Medical History (Updated 09/09/24 @ 12:34 by Gary Stephens MD) Cerebral microvascular disease Migraine without aura Recurrent urinary tract infection Prostatitis OA (osteoarthritis) Sleep apnea Hyperlipidemia GERD (gastroesophageal reflux disease) Chronic back pain Hypothyroidism Acute bilateral low back pain without sciatica Hypogonadism in male Dysuria Nocturia Elevated PSA BPH (benign prostatic hyperplasia) Erectile dysfunction Prostate cancer Surgical History History of prostate surgery Hx of arthroscopy of knee Hx of prostate biopsy Hx of hernia repair Social History Patient Tobacco Use Status: Former Tobacco user Review of Systems Const Details: Constitutional:?No fever, chills, fatigue, weight loss, or night sweats. HEENT:?No headache, vision changes, hearing loss, nasal congestion, sore throat. Neurological:?No dizziness, syncope, seizures, numbness, tingling, weakness, tremors, memory loss. Psychiatric:?No anxiety, depression, mood swings, sleep disturbance, or hallucinations. Endocrine:?No heat/cold intolerance, polydipsia, polyuria, or hair/skin changes. Hematologic/Lymphatic:?No easy bruising, bleeding, or lymphadenopathy. Integumentary (Skin):?No rash, lesions, itching, or color changes. ? Physical Exam Neuro Other: Mental Status: Alert and oriented to person, place, and time. Normal attention. Normal spontaneous speech, fluency, and comprehension. No obvious issues with mood and memory. Affect is appropriate. Cranial Nerves: CN II: Visual palencia full to confrontation, visual acuity intact. CN III, IV, : Pupils equal, round, reactive to light and accommodation. Extraocular movements are normal. CN V: Facial sensation is normal. CN VII: Facial movements symmetrical. CN VIII: Hearing intact to bedside conversation is normal. CN IX, X: Palate elevates symmetrically. CN XI: Shoulder shrug and head turn symmetrical. CN XII: Tongue midline without atrophy or fasciculations. Extrapyramidal: Full facial expressions and blinking. No rigidity. Movements are appropriate with no tremor or abnormality. Speech: Normal; no dysarthria or tremor. Assessment & Plan Assessment & Plan (1) Migraine without aura: Comment: Meds tried: Verapamil, propranolol, topiramate MRI brain WWO at [facility] in Apr 2024: Mod MVD, chronic R thalamic infarct (reported) CT brain [facility] at [facility] in 2023: Mild atrophy and mild MVD Code(s): G43.009 - Migraine without aura, not intractable, without status migrainosus Category: Medical Qualifiers: Status migrainosus presence: without status migrainosus Intractability: intractable Qualified Code(s): G43.019 - Migraine without aura, intractable, without status migrainosus (2) Cerebral microvascular disease: Code(s): I67.89 - Other cerebrovascular disease Category: Medical Plan Impression: a: Chronic tension type/migraine headaches b: Anxiety/panic disorder c: INOCENCIO not able to use CPAP being evaluated for Inspire d: Chronic pain syndrome treated with Soma and oxycodone e: Insomnia f: Moderate chronic atherothrombotic miscrovascular ischemic disease of brain Rec: a: Try depakote 250mg one at night for headache control b: Control of vascular risk factors c: Antiplatelet agent like baby aspirin daily, and statin therapy Medications: New divalproex 250 mg PO BID 30 tabs 0RF Coding Level of Care Code Est Pt Level 4 (25699) Diagnoses Intractable migraine without aura and without status migrainosus G43.019 Status migrainosus presence: without status migrainosus Intractability: intractable Cerebral microvascular disease I67.89
--- OUTSIDE RECORDS SUMMARY | 2024-09-09 13:06 | XMS_ITS | Clinical Summary ---
Author Organization 175 [facility] Address [address] [place] [address] Phone Care Team Providers Care Advisor Advocate Angel Co Founder Name Role Phone Roby Hernández MD Primary Care Provider [phone] Allergies No known active allergies Medications No [...] Upcoming Encounters Date Type Department Care Team ([facility] st Contact Info) Description 11/10/2024 9:15 AM EDT Office Visit Orthopedic Surgery - [place] [id number] [phone] Balta Mercado, CHAZ [address] [address] Health Maintenance Due Date Last Done Comments Pneumococcal Vaccine: 50+ Years (1 of 2 - PCV) 05/29/1970 Zoster Vaccines (1 of 2) 05/29/2001 RSV Immunization Adult Patients (1 - Risk 60-74 years 1-dose series) 2011 COVID-19 Vaccine (2023-2 5 season) 2023 Abdominal Aortic Aneurysm (AAA) Screen 01/08/2024 Colorectal Cancer Screening: Colonoscopy 01/08/2024 Falls Risk Assessment 01/08/2024 Hepatitis C Screening 01/08/2024 Medicare Annual Wellness Visit 01/08/2024 Social Influencers of Health Screening 01/08/2024 Depression Screening 02/20/2024 Influenza Vaccine (#1) 2024 12/08/2013 DTaP,Tdap,and Td Vaccines (4 - [...] Insurance MEDICARE MEDICAID - [place] Care Teams Advisor Advocate Angel Co Founder Relationship Specialty Start Date End Date Roby Hernández MD [address] [place] [id number] PCP - General Internal Medicine 01/08/24
--- OUTSIDE RECORDS SUMMARY | 2024-09-09 13:06 | XMS_ITS | Encounter Summary ---
Author Organization [facility] Address [address] [place] [address] Care Team Providers Care Briefcase Sewer Name Role Phone Roby Hernández Primary Care Provider [phone] Encounter Details Date Type Department Care Team (Late st Contact Info) Description 06/28/2023 Orders Only [facility] [address] [place] [address] Hunter Montejo MD [address] [place] [address] Fatigue, unspecified type (Primary Dx); Vision abnormalities; [...] Care Team (Late st Contact Info) Description 09/11/2024 1:15 PM EDT Procedure visit [facility] Ophthalmology [address] [place] [address] Erin Arreaga MD [address] [place] [address] 11/18/2024 9:45 AM EDT Office Visit [facility] Ophthalmology [address] [place] [address] Erin Arreaga MD [address] [place] [address] documented as of this encounter Visit Diagnoses Diagnosis Fatigue, unspecified type- Primary Vision abnormalities Unspecified visual loss Palpitation Palpitations SOB (shortness of breath) Shortness of breath documented in this encounter Care Teams Briefcase Sewer Relationship Specialty Start Date End Date Roby Hernández [address] [place] [address] PCP - General Internal Medicine 09/09/20 documented as of this encounter
--- OUTSIDE RECORDS SUMMARY | 2024-09-09 13:07 | XMS_ITS | Data Portability ---
Author Organization [place] [facility] Address [address] [place] [phone] Care Team Providers Care Investigations Manager Name Role Phone ALLAN ALLEN Referring Provider Assessment No assessment recorded. Plan of Treatment Reminders Order Date Submit Date Provider Last Modified By Organization Details Last Modified Time Details Appointments Heari ng Test 2024 03:00P M Hearing Test Not available Not available Not available Estab lishe d 15 2024 03:30P M RICKY GARCIA MD Not available Not available Not available Lab sjogr en antib adela panel (ssa, ssb, ro, la), serum 2024 025 GRACE [facility] (Centralized Electronic Ordering - All Locations), Patient Can Go To The Location Of Their Choice, 08/30/2024 20:16:49 zinc, serum or plasm a 2024 025 GRACE [facility] (Centralized Electronic Ordering - All Locations), Patient Can Go To The Location Of Their Choice, 08/30/2024 20:16:51 GLORIA + rf (anti nucle ar antib odies + rheum atoid facto r), quant itati ve, serum 2024 025 GRACE [facility] (Centralized Electronic Ordering - All Locations), Patient Can Go To The Location Of Their Choice, 08/30/2024 20:16:50 C-kathia ctive prote in, quant itati ve, serum or plasm a 2024 025 [email or web address] [facility] (Centralized Electronic Ordering - All Locations), Patient Can Go To The Location Of Their Choice, [id number] 08/25/2024 09:02:14 ESR (eryt hrocy te sedim entat ion rate) , blood 2024 025 GRACE [facility] (Centralized Electronic Ordering - All Locations), Patient Can Go To The Location Of Their Choice, [id number] 08/30/2024 20:16:51 vitam in B12 + folat e, serum or blood 2024 025 GRACE [facility] (Centralized Electronic Ordering - All Locations), Patient Can Go To The Location Of Their Choice, [id number] 08/30/2024 20:16:49 Referral None recor ded. Procedures polys omnog satish , diagn ostic (PROC ) - in lab 2024 025 [email or web address] [facility] Adult), [address] [place] [address], [id number], 08/26/2024 15:35:29 Surgeries None recor ded. Imaging None recor ded. Medication Orders None recor ded. Patient TargetsNo targets recorded. Patient InstructionsNo instructions recorded. Reason for Referral None Reported. Results Created Date Observation Date Name Description Value Unit Range Abnormal Flag Note LastModifiedBy Organization Detail LastModifiedTime Result Notes None recorded. 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; Note: Date Diagnosed : 5 1:49 PM (D11.0) Not Available [facility] 4 03:16:45 Sensorine ural hearing loss of bilateral ears 544085644 Active 2020 Sensorine ural hearing loss, bilateral ; Note: Date Diagnosed : 1 12:07 PM (H90.3) Not Available [facility] 4 03:16:46 Abnormal auditory perceptio n 96376611 Active 2020 Other abnormal auditory perceptio ns, right ear; Note: Date Diagnosed : 1 12:10 PM (H93.291) Not Available [facility] 4 03:16:46 Impacted cerumen in left ear 96452690308 96449 Active 2021 Impacted cerumen, left ear; Note: Date Diagnosed : 06/10/2021 9:58 AM (H61.22) Not Available [facility] 4 03:16:45 Xerostomi a 47258722 Active 2021 Dry mouth, unspecifi ed; Note: Date Diagnosed : 12/27/2021 4:56 PM (R68.2) Not Available [facility] 4 03:16:45 Obstructi ve sleep apnea syndrome 92105381 Active 2021 Obstructi ve sleep apnea (adult) (pediatri c); Note: Date Diagnosed : 12/27/2021 4:56 PM (G47.33) RICKY GARCIA MD [address] [place] [address],[place] [address], [place], [phone] , [place] - [facility] 5 13:23:24 Sensorine ural hearing loss of bilateral ears 673058490 Active 2024 RICKY GARCIA MD [address] [place] [address],[place] [address], [place], [address] , [place] - [facility] 5 13:25:50 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 Procedures Surgical History Date Name Laterality Status Provider Name and Address Organization Details Recorded Time 08/16/19 25 Fiberoptic Laryngoscopy (Comprehensive) completed RICKY GARCIA MD [address] [place] [address], [place], [address], [place] [facility] 08/20/2024 08:05:42 Imaging Results None recorded. Procedure Notes None recorded. Medical Equipment None Reported. Allergies No known drug allergies Medications Name Sig Start Date Stop Date Status Note LastModified by Organization Details LastModified Time Prescript ion - Prior Authoriza tion Request active Script Copy/Mirella or Auth^Scr ipt Copy/Mirella or Auth_202 [id number] Not Available Not Available Not Available carisopro dol 350 mg tablet active Not Available Not Available No t Available celecoxib 200 mg capsule 12/27 completed Medicati on ID: [id number] B rand Name: celecoxi b Send Method: E-Prescr ibed Sub s Allowed: subs OK Medic ationGen ericName : celecoxi b Not Available Not Available Not Available clotrimaz ole 10 mg wilbur Hold 1 wilbur in mouth three times a day 08/15 completed Medicati on ID: [id number] D uration Value: 14 Brand Name: clotrima zole Sen d Method: E-Prescr ibed Sub s Allowed: subs OK Medic ationGen ericName : clotrima zole Not Available Not Available Not Available nystatin 100,000 unit/mL oral suspensio n by mouth 08/15 completed Medicati on ID: [id number] P olivier cole By Name: Monica Reece nd Name: nystatin Send Method: E-Prescr ibed Sub s Allowed: subs OK Speci al Instruct ion: 5 ml swish and spit four times daily x 2-4 weeks Me dication GenericN hitesh: nystatin Not Available Not Available Not Available oxybutyni n chloride ER 15 mg tablet,ex tended release 24 hr 12/27 completed Medicati on ID: [id number] B rand Name: oxybutyn in chloride Send Method: E-Prescr ibed Sub s Allowed: subs OK Medic ationGen ericName : oxybutyn in chloride Not Available Not Available Not Available verapamil 40 mg tablet TAKE 1 TABLET BY MOUTH TWICE DAILY 08/15 completed Not Available Not Available Not Available oxybutyni n chloride ER 10 mg tablet,ex tended release 24 hr 06/10 completed Medicati on ID: [id number] B rand Name: oxybutyn in chloride Send Method: E-Prescr ibed Sub s Allowed: subs OK Medic ationGen ericName : oxybutyn in chloride Not Available Not Available Not Available ibuprofen 800 mg tablet 04/23 completed Medicati on ID: [id number] D uration Value: 30 Brand Name: ibuprofe n Send Method: E-Prescr ibed Sub s Allowed: subs OK Medic ationGen ericName : ibuprofe n Not Available Not Available Not Available metoprolo l succinate ER 50 mg tablet,ex tended release 24 hr TAKE 1 TABLET BY MOUTH DAILY active Not Available Not Available No t Available sulfameth oxazole 400 mg-trimet hoprim 80 mg tablet 08/15 completed Medicati on ID: [id number] B rand Name: sulfamet hoxazole -trimeth oprim Se nd Method: E-Prescr ibed Sub s Allowed: subs OK Medic ationGen ericName : sulfamet hoxazole -trimeth oprim Not Available Not Available Not Available meloxicam 15 mg tablet 08/15 completed Not Available Not Available Not Available prednison e 20 mg tablet 12/27 completed Medicati on ID: [id number] B rand Name: predniso ne Send Method: E-Prescr ibed Sub s Allowed: subs OK Medic ationGen ericName : predniso ne Not Available Not Available Not Available sertralin e 100 mg tablet TAKE 2 TABLETS BY MOUTH DAILY active Not Available Not Available No t Available clonazepa m 1 mg tablet 04/23 completed Medicati on ID: [id number] D uration Value: 30 Brand Name: clonazep am Send Method: E-Prescr ibed Sub s Allowed: subs OK Medic ationGen ericName : clonazep am Not Available Not Available Not Available topiramat e 25 mg tablet TAKE 1 TABLET BY MOUTH ONCE A DAY FOR 30 DAYS 08/15 completed Not Available Not Available Not Available doxepin 10 mg capsule TAKE 1 CAPSULE BY MOUTH AT BEDTIME 08/15 completed Not Available Not Available Not Available hydrocodo ne 10 mg-acetam inophen 325 mg tablet TAKE 1 TABLET BY MOUTH FOUR TIMES DAILY active Not Available Not Available No t Available omeprazol e 40 mg capsule,d elayed release active Medicati on ID: [id number] B rand Name: omeprazo le Send Method: E-Prescr ibed Sub s Allowed: subs OK Medic ationGen ericName : omeprazo le Not Available Not Available Not Available butalbita l-acetami nophen-ca ffeine 50 mg-325 mg-40 mg tablet TAKE 1 TABLET BY MOUTH EVERY NIGHT AT BEDTIME 08/15 completed Not Available Not Available Not Available levothyro xine 100 mcg tablet TAKE 2 TABLETS (200 MCG TOTAL) BY MOUTH EVERY MORNING. active Not Available Not Available No t Available tamsulosi n 0.4 mg capsule 12/27 completed Medicati on ID: [id number] B rand Name: tamsulos in Send Method: E-Prescr ibed Sub s Allowed: subs OK Speci al Instruct ion: TAKE 1 CAPSULE BY MOUTH AT BEDTIME Medicati onGeneri cName: tamsulos in Not Available Not Available Not Available Synthroid 25 mcg tablet 04/23 completed Medicati on ID: [id number] D uration Value: 30 Brand Name: Synthroi d Send Method: E-Prescr ibed Sub s Allowed: subs OK Medic ationGen ericName : Synthroi d Not Available Not Available Not Available gabapenti n 300 mg capsule 08/15 completed Not Available Not Available Not Available Synthroid 112 mcg tablet 12/27 completed Medicati on ID: [id number] B rand Name: Synthroi d Send Method: E-Prescr ibed Sub s Allowed: subs OK Medic ationGen ericName : Synthroi d Not Available Not Available Not Available gabapenti n 100 mg capsule active Not Available Not Available Not Available metoprolo l succinate ER 25 mg tablet,ex tended release 24 hr TAKE 1 TABLET BY MOUTH DAILY 08/15 completed Not Available Not Available Not Available zolpidem 10 mg tablet TAKE 1 TABLET BY MOUTH DAILY AT BEDTIME NEEDED FOR SLEEP NO EARLY FILL active Not Available Not Available No t Available propranol ol 20 mg tablet TAKE 1 TABLET BY MOUTH DAILY 08/15 completed Not Available Not Available Not Available celecoxib 100 mg capsule 11/29 completed Medicati on ID: [id number] B rand Name: celecoxkatya b Send Method: E-Prescr ibed Sub s Allowed: subs OK Medic ationGen ericName : celecoxi b Not Available Not Available Not Available fluticaso ne propionat e 50 mcg/actua tion nasal spray,skinny pension SPRAY 1 SPRAY INTO EACH NOSTRIL TWICE A DAY active Not Available Not Available No t Available sertralin e 50 mg tablet TAKE 1 TABLET BY MOUTH EVERY DAY 08/15 completed Not Available Not Available Not Available terazosin 10 mg capsule 04/23 completed Medicati on ID: [id number] D uration Value: 90 Brand Name: terazosi n Send Method: E-Prescr ibed Sub s Allowed: subs OK Medic ationGen ericName : terazosi n Not Available Not Available Not Available finasteri de 5 mg tablet 04/23 completed Medicati on ID: [id number] D uration Value: 90 Brand Name: finaster dominic Send Method: E-Prescr ibed Sub s Allowed: subs OK Medic ationGen ericName : finaster dominic Not Available Not Available Not Available amoxicill in 875 mg-potass ium clavulana te 125 mg tablet 08/15 completed Not Available Not Available Not Available Ventolin HFA 90 mcg/actua tion aerosol inhaler INHALE 1 PUFF BY MOUTH EVERY 6 HOURS NEEDED FOR SHORTNES S OF BREATH DYSPNEA active Not Available Not Available No t Available hydroxyzi ne pamoate 25 mg capsule TAKE 1 CAPSULE BY MOUTH EVERY DAY NEEDED FOR ANXIETY active Not Available Not Available No t Available Advair HFA 115 mcg-21 mcg/actua tion aerosol inhaler INHALE 2 PUFFS INTO THE LUNGS TWICE DAILY 08/15 completed Not Available Not Available Not Available fluocinol one acetonide oil 0.01 % ear drops Instill 2 drop into both ears twice a week as directed 08/15 completed Medicati on ID: [id number] D uration Value: 30 Brand Name: fluomandy hogan acetonid e oil Send Method: E-Prescr ibed Sub s Allowed: subs OK Medic ationGen ericName : fluocino lone acetonid e oil Not Available Not Available Not Available testoster one 50 mg/5 gram (1 %) transderm al gel APPLY 1 PACKET TRANSDER IVA DAILY active Not Available Not Available No t Available diclofena c 1 % topical gel APPLY 4 GRAMS TOPICALL Y TO BOTH KNEES THREE TIMES DAILY active Not Available Not Available No t Available Myrbetriq 25 mg tablet,ex tended release TAKE 1 TABLET BY MOUTH DAILY 08/15 completed Not Available Not Available Not Available Vitals Date Recorded Body height Body mass index (BMI) Body weight Provider Name and Address Organization Details Last Updated DateTime 08/15/2024 177.8 cm 37.6 kg/m2 388571.2 g Bibiana Kwon [place] - [facility] 08/15/2024 13:13:00 Social History None recorded. Functional Status None recorded. Mental Status None recorded. Family History Nothing Reported. Medical History No medical history recorded. Past Encounters Encounter ID Performer Location Encounter Start Date Encounter Closed Date Diagnosis/Indication Diagnosis SNOMED-CT Code Diagnosis ICD10 Code Diagnosis Note [id number] RICKY GARCIA MD [facility] [address] [place] [address] 08/15/2024 13:04:57 08/15/2024 13:32:18 Obstructive sleep apnea syndrome 33387246 G47.33 Previously tried CPAP, no PSG to review, questions if candidate for inspire but this would be dependent on PSG findings. Sensorineu ral hearing loss of bilateral ears 229769552 H90.3 No obstructiv e cerumen or effusion. Will schedule updated audiogram. Burning mo uth syndrome 005833999 K14.6 Will get screening lab work. Could be reaction to the dentures. Health Concerns Section Related Observation LastModified by Organization Detai ls LastModified Time None Recorded Concern Status LastModified by Organization Details LastModified Time None Recorded Advance Directives Directive None Recorded Payers Insurance Date Sequence Insurance Name Policy Number Policy Brady Covered Member ID Brady Member ID Guarantor Name 08/15/2024 1 [place] [facility] Ralph [facility] [id number] Ralph [facility] 08/15/2024 1 [place] Ralph Rodríguez [id number] Ralph Rodríguez 08/20/2024 2 [place] Ralph Rodríguez [id number] Ralph Rodríguez 08/15/2024 1 MEDICARE B-[place]: [facility] Ralph Rodríguez [id number] Ralph Rodríguez Notes Date Note Type Note Provider Name and Address Organization Details Recorded Time 08/15/2024 text/html 74 yo M presents for a few concerns dry mouthconcern for plastic reaction to denturesthyroid levels ok nothing for INOCENCIO currentlyzolpidem helps with sleep swallowing a little trickysome of the foods get stuck in the throat PSG 1.5 years ago, dis not find results at [facility] or [facility], candidate for inspire? RICKY GARCIA MD [address] [place] [address], [place], [address], [place] - [facility] 08/20/2024 08:08:01
== END 2024-09-09 12:38 | disposition home or self-care (01) ==
LOC: HO.HSM 11:53
PROVIDERS: PCP Internal Medicine; Visit Provider Psychiatry & Neurology Neurology
DX: G43.019 Migraine without aura, intractable, without status migrainosus (principal); I67.89 Other cerebrovascular disease
CPT/HCPCS: 99214

== ENCOUNTER → 2024-09-09 11:53 | Outpatient (BNVA) | payer MEDICARE, OTHER, SELFPAY | PROVIDERS: PCP Internal Medicine; Visit Provider Psychiatry & Neurology Neurology | DX: G43.019 Migraine without aura, intractable, without status migrainosus (principal); I67.89 Other cerebrovascular disease | CPT/HCPCS: 99212 ==

== ENCOUNTER 2024-12-29 11:55 | Outpatient (AMB) | payer MEDICARE, MEDICAID, SELFPAY ==
--- OUTSIDE RECORDS SUMMARY | 2024-12-27 23:59 | XMS_ITS | Continuity of Care Document ---
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 Role Phone Edgar ACOSTA, Roby Guzmán Primary Care Physician Encounter [facility] [place] Date(s): 11/27/24 - 12/27/24 [facility] [address] [place] [address] Drive [address] [place] [address]- Encounter Type: Triage Allergies, Adverse Reactions, Alerts Substance Criticality Severity Reaction Reaction Severity Status Tylenol with Codeine #3 vomits Active Immunizations Given and Recorded Vaccine Date Status Refusal Reason tetanus-diphtheria toxoids (Td) 1 03/15/18 Given influenza virus vaccine, inactivated 12/08/13 Juanjo rded tetanus/diphtheria/pertussis, acel(Tdap) 08/10/05 Recorded 1Result Comment: [03/15/2018] [facility]: 22224-031-05 Medications acetaminophen-hydrocodone 325 mg-10 mg oral tablet 1 tablet, By Mouth, 4 times a day, m54.5 covering provider, # 112 tablet, 0 Refills, Maintenance, 08/29/18 2:15:58 PM EDT, [facility]/pharmacy #[id number], changing pharmacy to [facility], 1 tablet By Mouth 4 times a day,x28 days,Instr:m54.5; covering provider Start Date: 08/29/18 Stop Date: 09/26/18 Status: Ordered Medication Dispense Status: Completed Quantity: 112.0 Unit: tablet Total Allowed Fills: 1 Fills Dispensed: 0 aspirin 81 mg oral delayed release tablet 81 mg, 1, tablet, By Mouth, Daily, # 30 tablet, Refills 0, Tot. Refills 0, Maintenance, 01/29/24 9:52:00 AM EST, Do Not Route, Partial fill upon patient request if the prescription is for a schedule II opioid drug. Start Date: 01/29/24 Status: Ordered Medication Dispense Status: Completed Quantity: 30.0 Unit: tablet Total Allowed Fills: 1 Fills Dispensed: 0 Indications: Benign prostatic hyperplasia with lower urinary tract symptoms; atorvastatin 40 mg oral tablet 1 tablet = 40 mg, By Mouth, Daily, # 90 tablet, 0 Refills, Maintenance, 06/05/24 11:42:00 AM EDT, Tablet, [facility] #[id number], Partial fill upon patient request if the prescription is for a schedule II opioid drug., 178, cm, 05/22/24 12:06:00 EDT, Height, 118.7, kg, 11/11/22 11:58:00 EDT, Dry Weight Start Date: 06/05/24 Status: Ordered Medication Dispense Status: Completed Quantity: 90.0 Unit: tablet Total Allowed Fills: 1 Fills Dispensed: 0 D3 1000 = 25 mcg, By Mouth, Daily, 0 Refills, Maintenance, 04/06/20 9:04:00 AM EST, Partial fill upon patient request if the prescription is for a schedule II opioid drug. Start Date: 04/06/20 Status: Ordered Medication Dispense Status: Completed Total Allowed Fills: 1 Fills Dispensed: 0 divalproex sodium 250 mg oral tablet, extended release 2 tablet = 500 mg, By Mouth, Daily, 0 Refills, Maintenance, 10/09/24 1:51:00 PM EDT, Partial fill upon patient request if the prescription is for a schedule II opioid drug. Start Date: 10/09/24 Status: Ordered Medication Dispense Status: Completed Total Allowed Fills: 1 Fills Dispensed: 0 hydrOXYzine pamoate 25 mg oral capsule 1 capsule, By Mouth, Daily, PRN NEEDED FOR ANXIETY, # 90 capsule, 3 Refills, Maintenance, 07/04/23 4:29:00 PM EDT, [facility]/pharmacy #[id number], 178, cm, 04/15/23 13:33:00 EST, Height, 118.7, kg, 11/11/22 11:58:00 EDT, Dry Weight Start Date: 07/04/23 Status: Ordered Medication Dispense Status: Completed Quantity: 90.0 Unit: capsule Total Allowed Fills: 4 Fills Dispensed: 0 ibuprofen 800 mg oral tablet 800 mg, 1, tablet, By Mouth, 3 times a day, PRN, TAKE ONE TABLET BY MOUTH THREE TIMES DAILY WITH MEALS, # 270 tablet, Refills 1, Tot. Refills 1, Maintenance, as needed for pain, 08/29/17 12:10:16 PM EDT, [id number] Start Date: 08/29/17 Status: Ordered Medication Dispense Status: Completed Quantity: 270.0 Unit: tablet Total Allowed Fills: 2 Fills Dispensed: 0 metoprolol 50 mg oral tablet, extended release 50 mg, 1, tablet, By Mouth, Daily, # 90 tablet, Refills 3, Tot. Refills 3, Maintenance, 09/03/24 3:50:00 PM EDT, Route to Pharmacy Electronically, [facility] #[id number], increased dose, 178, cm,08/27/24 13:55:00 EDT, Height, 117, kg, 07/22/24 13:06:00 EDT, Dry Weight Start Date: 09/03/24 Status: Ordered Medication Dispense Status: Completed Quantity: 90.0 Unit: tablet Total Allowed Fills: 4 Fills Dispensed: 0 Myrbetriq 25 mg oral tablet, extended release 1 tablet = 25 mg, By Mouth, Daily, do not crush or chew, # 30 tablet, 0 Refills, Maintenance, 01/29/24 9:26:00 AM EST, ER Tablet, Partial fill upon patient request if the prescription is for a schedule II opioid drug. Start Date: 01/29/24 Status: Ordered Medication Dispense Status: Completed Quantity: 30.0 Unit: tablet Total Allowed Fills: 1 Fills Dispensed: 0 omeprazole 40 mg oral enteric coated capsule 1 capsule = 40 mg, By Mouth, 2 times a day before breakfast and dinne, # 60 capsule, 11 Refills, Maintenance, 02/01/18 10:08:03 AM EST, EC Capsule, [facility]/pharmacy #[id number] Start Date: 02/01/18 Stop Date: 01/27/19 Status: Ordered Medication Dispense Status: Completed Quantity: 60.0 Unit: capsule Total Allowed Fills: 12 Fills Dispensed: 0 Pulmicort Flexhaler 90 mcg 2 puffs, Inhalation, 2 times a day, Rinse and spit after use, # 2 each, 3 Refills, Maintenance, 05/30/17 1:15:34 PM EDT, Powder, [facility]/pharmacy #[id number], 2 puffs Inhalation 2 times a day,Instr:Rinse and spit after use Start Date: 05/30/17 Status: Ordered Medication Dispense Status: Completed Quantity: 2.0 Unit: each Total Allowed Fills: 4 Fills Dispensed: 0 sertraline 100 mg oral tablet 2 tablet = 200 mg, By Mouth, Daily, for 90 days, # 180 tablet, 1 Refills, Hard Stop 01/28/25 4:38:00 PM EST, 08/01/24 4:38:00 PM EDT, Tablet, [facility] #[id number], Partial fill upon patient request if the prescription is for a schedule II opioid drug., 178, cm, 01/29/24 16:01:00 EST, Height, 118.7, kg, 11/11/22 11:58:00 EDT, Dry Weight Start Date: 08/01/24 Stop Date: 01/28/25 Status: Ordered Medication Dispense Status: Completed Quantity: 180.0 Unit: tablet Total Allowed Fills: 2 Fills Dispensed: 0 sertraline 100 mg oral tablet 2 tablet = 200 mg, By Mouth, Daily, # 180 tablet, 1 Refills, Maintenance, 01/28/25 4:38:00 PM EST, Tablet, [facility] #[id number], Partial fill upon patient request if the prescription is for a schedule II opioid drug., 178, cm, 07/22/24 13:06:00 EDT, Height, 117, kg, 07/22/24 13:06:00 EDT, Dry Weight Start Date: 01/28/25 Stop Date: 07/27/25 Status: Ordered Medication Dispense Status: Completed Quantity: 180.0 Unit: tablet Total Allowed Fills: 2 Fills Dispensed: 0 Soma 250 mg oral tablet 1 tablet = 250 mg, By Mouth, 2 times a day, ONE TAB IN THE AM , ONE TAB AT NIGHT, 0 Refills, Maintenance, 04/08/19 10:38:00 AM EST Start Date: 04/08/19 Status: Ordered Medication Dispense Status: Completed Total Allowed Fills: 1 Fills Dispensed: 0 Suprep Bowel Prep Kit oral liquid See Instructions, see colonoscopy instructions, # 1 kit, 0 Refills, Maintenance, 09/03/24 10:42:00 AM EDT, [facility] #[id number], Partial fill upon patient request if the prescription is for a schedule II opioid drug., see colonoscopy instructions, 178, cm, 08/27/24 13:55:00 EDT, Height, 117, kg, 07/22/24 13:06:00 EDT, Dry Weight Start Date: 09/03/24 Status: Ordered Medication Dispense Status: Completed Quantity: 1.0 Unit: kit Total Allowed Fills: 1 Fills Dispensed: 0 Synthroid 0.1 mg oral tablet 2 tablets, By Mouth, Daily, daily dose of 200mcg daily Brand name only, # 60 tablet, 5 Refills, Maintenance, 07/03/18 3:22:29 PM EDT, Tablet, [facility]/pharmacy #[id number] Start Date: 07/03/18 Stop Date: 12/30/18 Status: Ordered Medication Dispense Status: Completed Quantity: 60.0 Unit: tablet Total Allowed Fills: 6 Fills Dispensed: 0 Ventolin HFA 108 mcg/inh inhalation aerosol with adapter 1 puffs, Inhalation, 4 times a day, PRN for wheezing, # 18 Gm, 1 Refills, Maintenance, 08/30/18 8:10:24 AM EDT, Aerosol, [facility]/pharmacy #[id number] Start Date: 08/30/18 Status: Ordered Medication Dispense Status: Completed Quantity: 18.0 Unit: g Total Allowed Fills: 2 Fills Dispensed: 0 zolpidem 10 mg oral tablet 1 tablet = 10 mg, By Mouth, Daily at bedtime, PRN for sleep, No early fill, # 30 tablet, 5 Refills,Maintenance, 08/12/24 4:31:00 PM EDT, Tablet, [facility] #[id number], last filled 08/03, 178, cm, 07/22/24 13:06:00 EDT, Height, 117, kg, 07/22/24 13:06:00 EDT, Dry Weight Start Date: 08/12/24 Status: Ordered Medication Dispense Status: Completed Quantity: 30.0 Unit: tablet Total Allowed Fills: 6 Fills Dispensed: 0 Problem List Condition Confirmation Course Effective Dates Status Health Status Informant Abdominal pain Confirmed Active Acquired deviated nasal septum Confirmed Active Acute sinusitis Confirmed Active Adenomatous polyp of colon Confirmed Active Anemia Confirmed Active Anxiety Confirmed Active Rivas's esophagus Confirmed Active BPH associated with nocturia Confirmed Active Benign prostatic hypertrophy without urinary obstruction Confirmed Active Chronic pain syndrome Confirmed Active Chronic sinusitis Confirmed Active Diarrhea Confirmed Active Drug-induced diarrhea Confirmed Active Eustachian tube dysfunction Confirmed Active Dysthymic disorder Confirmed Active Esophageal reflux Confirmed Active Helicobacter pylori gastritis Confirmed Active Hypercholesterolemia Confirmed Active Hyperlipidemia Confirmed Active Hypertrophy of nasal turbinates Confirmed Active Hypothyroidism Confirmed Active Cerumen impaction Confirmed Active Prediabetes Confirmed Active Organic impotence Confirmed Active Infectious diarrhea Confirmed Active Knee pain, right Confirmed Active Hypogonadism male Confirmed Active Malignant neoplasm of prostate Confirmed Active Prostate cancer Confirmed Active Nocturia Confirmed Active Obesity Confirmed Active Obstructive sleep apnea Confirmed Active Osteoarthritis of knee Confirmed Active Facial pain Confirmed Active Panic disorder with agoraphobia Confirmed Active Encounter for preventive health examination Confirmed Active Elevated prostate specific antigen (PSA) Confirmed Active Rectal bleeding Confirmed Active Severe obesity (BMI 35.0-39.9) with comorbidity Confirmed Active Severe recurrent major depression without psychotic features Confirmed Active Abnormal finding on thyroid function test Confirmed Active Tick bites Confirmed Active Ringworm of body Confirmed Active Tubular adenoma of colon Confirmed Active Umbilical hernia Confirmed Active Urinary tract infection Confirmed Active Social History Social History Type Response Sexual Sexually involved in last 6 months: No. Gender identity: Male. Sexually active at age: 17 Years. Gender of partner(s): Female. Smoking Status Former smoker; Other : quit 30 years ago. 2 PPD for 20years; entered on: 07/16/15 Sex Sex Representation Male (finding) Patient Care team information Care Team Personnel Name: Olga Marquez MA Position: [facility] [place] Office Staff Member Role: Primary Care Nurse Name: Aracelis Dempsey MA Position: [facility] [place] Office Staff Member Role: Primary Care Nurse Name: Roby Hernández MD Position: [facility] Outreach Member Role: PCP Address: [address] [place] [address]- [place] Telecom: Name: David Fernando MD Position: [facility] Physician - Behavioral Health Member Role: Lifetime Consulting Physician Address: [address] [place] [address] - [place] [address]- [place] Telecom: Care Team Related Persons Name: MARINESI, SAMUEL Insurance Providers Guarantor name: PASCUAL PERERA Health Plan Information #: 1 Payer: MEDICARE B Payer Identifier: MURPHY Member Number: [id number] Group Number: MURPHY Subscriber Identifier: MURPHY Relationship to Subscriber: self Coverage Type: NA Coverage Verification Date: NA Telecom: NA Address: NA Health Plan Information #: 2 Payer: [facility] Payer Identifier: NA Member Number: [id number] Group Number: MURPHY Subscriber Identifier: MURPHY Relationship to Subscriber: self Coverage Type: MEDICAID Coverage Verification Date: NA Telecom: NA Address: NA
--- OUTSIDE RECORDS SUMMARY | 2024-12-27 23:59 | XMS_ITS | Continuity of Care Document ---
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 Encounter Type: Triage Allergies, Adverse Reactions, Alerts Substance Criticality Severity Reaction Reaction Severity Status Tylenol with Codeine #3 vomits Active Immunizations Given and Recorded Vaccine Date Status Refusal Reason tetanus-diphtheria toxoids (Td) 1 03/15/18 Given influenza virus vaccine, inactivated 12/08/13 Juanjo rded tetanus/diphtheria/pertussis, acel(Tdap) 08/10/05 Recorded 1Result Comment: [03/15/2018] [facility]: 95856-611-82 Medications acetaminophen-hydrocodone 325 mg-10 mg oral tablet 1 tablet, By Mouth, 4 times a day, m54.5 covering provider, # 112 tablet, 0 Refills, Maintenance, 08/29/18 2:15:58 PM EDT, [facility]/pharmacy #[id number], changing pharmacy to [facility], 1 tablet By Mouth 4 times a [...] Refills, Maintenance, 06/05/24 11:42:00 AM EDT, Tablet, [facility] #[id number], Partial fill upon patient request if the [...] 3 Refills, Maintenance, 07/04/23 4:29:00 PM EDT, [facility]/pharmacy #[id number], 178, cm, 04/15/23 [...] 12:10:16 PM EDT, [id number] Start Date: 08/29/17 Status: Ordered Medication Dispense Status: Completed Quantity: 270.0 Unit: tablet Total Allowed Fills: 2 Fills Dispensed: 0 metoprolol 50 mg oral tablet, extended release 50 mg, 1, tablet, By Mouth, Daily, # 90 tablet, Refills 3, Tot. Refills 3, Maintenance, 09/03/24 3:50:00 PM EDT, Route to Pharmacy Electronically, [facility] #[id number], increased dose, 178, cm,08/27/24 13:55:00 EDT, Height, [...] Maintenance, 02/01/18 10:08:03 AM EST, EC Capsule, [facility]/pharmacy #[id number] Start Date: 02/01/18 Stop Date: 01/27/19 Status: Ordered Medication Dispense Status: Completed Quantity: 60.0 Unit: capsule Total Allowed Fills: 12 Fills Dispensed: 0 Pulmicort Flexhaler 90 mcg 2 puffs, Inhalation, 2 times a day, Rinse and spit after use, # 2 each, 3 Refills, Maintenance, 05/30/17 1:15:34 PM EDT, Powder, [facility]/pharmacy #[id number], 2 puffs Inhalation [...] PM EST, 08/01/24 4:38:00 PM EDT, Tablet, [facility] #[id number], Partial fill upon patient request if the [...] Refills, Maintenance, 01/28/25 4:38:00 PM EST, Tablet, [facility] #[id number], Partial fill upon patient request if the [...] 0 Refills, Maintenance, 09/03/24 10:42:00 AM EDT, [facility] #[id number], Partial fill upon patient request if the [...] Refills, Maintenance, 07/03/18 3:22:29 PM EDT, Tablet, [facility]/pharmacy #[id number] Start Date: 07/03/18 Stop Date: 12/30/18 Status: Ordered Medication Dispense Status: Completed Quantity: 60.0 Unit: tablet Total Allowed Fills: 6 Fills Dispensed: 0 Ventolin HFA 108 mcg/inh inhalation aerosol with adapter 1 puffs, Inhalation, 4 times a day, PRN for wheezing, # 18 Gm, 1 Refills, Maintenance, 08/30/18 8:10:24 AM EDT, Aerosol, [facility]/pharmacy #[id number] Start Date: 08/30/18 Status: Ordered Medication Dispense Status: Completed Quantity: 18.0 Unit: g Total Allowed Fills: 2 Fills Dispensed: 0 zolpidem 10 mg oral tablet 1 tablet = 10 mg, By Mouth, Daily at bedtime, PRN for sleep, No early fill, # 30 tablet, 5 Refills,Maintenance, 08/12/24 4:31:00 PM EDT, Tablet, [facility] #[id number], last filled 08/03, 178, cm, 07/22/24 13:06:00 [...] Team Personnel Name: Olga Marquez MA Position: [facility] Office Staff Member Role: Primary Care Nurse Name: Aracelis Dempsey MA Position: [facility] Office Staff Member Role: Primary Care Nurse Name: Roby Hernández MD Position: [facility] Outreach Member Role: PCP Address: [address] [place] [address]- [place] Telecom: Name: David Fernando MD Position: [facility] Physician - Behavioral Health Member Role: [employer] Consulting Physician Address: [address] [place] [address] - [place] [address]- [place] Telecom: Care Team Related Persons Name: MARINESI, SAMUEL Insurance Providers Guarantor name: PASCUAL PERERA Health Plan Information #: 1 Payer: MEDICARE B Payer Identifier: MURPHY Member Number: [id number] Group Number: MURPHY Subscriber Identifier: MURPHY Relationship to Subscriber: self Coverage Type: NA Coverage Verification Date: NA Telecom: NA Address: NA Health Plan Information #: 2 Payer: [facility] Payer Identifier: NA Member Number: [id number] Group Number: MURPHY Subscriber Identifier: MURPHY Relationship to Subscriber: self Coverage Type: MEDICAID Coverage Verification Date: NA Telecom: NA Address: NA
--- NOTE | 2024-12-29 11:56 | A.OFFVIS_ITS ---
Intake Visit Reasons: Follow up/Labs Intake Note: Patient presents today for follow up visit follow up on: prostate cancer, hypogonadism, OAB and labs Labs done 10/22/24 : Total Testosterone 173, Fr Testosterone 1.9, PSA 0.4 Urology Medications: myrbetriq, testosterone Blood Thinner: None Surfacing Machine Operator Required: No Accompanied by: Self / Same As Patient Allergies codeine (Tylenol-Codeine #3) Allergy (Mild, Verified 12/29/24 13:54) unknown Iodinated Contrast Media (IV CONTRAST) Allergy (Mild, Verified 12/29/24 13:54) HIVES Medication List - Last Reconciled 12/29/24 by TJ Rodriguez- albuterol sulfate 90 mcg/actuation 1 puff PO QID PRN carisoprodol 350 mg PO BID PRN divalproex 250 mg PO BID doxepin 10 mg PO BEDTIME fluticasone propionate 50 mcg/actuation 1 spray intranasal DAILY PRN hydrocodone-acetaminophen 10-325 mg tabs PO hydroxyzine pamoate 25 mg PO DAILY PRN levothyroxine 200 mcg PO QAM metoprolol succinate ER mg PO DAILY Myrbetriq ER (mirabegron) 50 mg PO DAILY 90 days NS omeprazole 40 mg PO DAILY PRN propranolol 20 mg PO DAILY sertraline 200 mg PO DAILY testosterone 50 mg transdermal DAILY 30 days verapamil mg PO zolpidem 10 mg PO BEDTIME PRN HPI Comments Details: Ralph is a very pleasant 74-year-old male patient of Dr. Hernández. He has a past medical history of chronic back pain, ED, GERD, hyperlipidemia, hypothyroidism, nocturia, osteoarthritis, prostatitis, recurrent urinary tract infections, and sleep apnea. He presents to the office today for follow-up of his prostate cancer, hypogonadism, and lower urinary tract symptoms. In discussion with the patient today he reports to be doing and feeling well urologically. He discusses since his last office visit here he has been following up with Neurology as well as Cardiology for ongoing chest pain and headaches he continues to experience. He discusses following up with a provider out in the [place] area and is looking to possibly have surgical intervention for jugular vein compression. He reports significant improvement in lower urinary tract symptoms he had been experiencing with 25 mg of Myrbetriq. He does report an endorse to inconsistency and compliance with topical testosterone as prescribed. Recent labs reviewed with the patient today as noted and trended below. PSA: 04/13 0.4, 10/11 0.3, 04/14 0.5, 07/12 0.4, 02/11 0.3, 07/13 0.3, 11/13 0.4 Total testosterone: 04/13 610, 10/11 279, 04/14 315, 07/12 443, 02/11 167, 07/13 286, 11/13 173 Free testosterone: 10/11 38.2, 04/14 6.81, 07/12 4.7, 02/11 1.4, 2.8 Hemoglobin/hematocrit: 07/13 14.3/42.6, 11/13 14.3/42.6 Previous workup has included a retroperitoneal ultrasound 10/11 noting right kidney with no calculi or hydronephrosis. 7 mm simple cyst in the lower pole and 1.2 cm simple cyst in the lower pole per radiology report no follow-up imaging is recommended. Left kidney with no calculi or hydronephrosis. 6 mm simple cyst in the lower pole with no follow-up imaging recommended per radiology report. The bladder is well distended and normal. Pre void bladder volume is approximately 230 mL. Postvoid bladder volume is approximately 90 mL. Prostate volume is approximately 40 mL. He otherwise reports be happy with current voiding parameters. In office urinalysis results reviewed with the patient today. He otherwise offers no issues or concerns at this time. Prostate Cancer: [place] 3 + 4, XRT with short-term hormones 2015 Prostate cancer was diagnosed [address] Tai. Diagnosis was reached by needle biopsy, for elevated PSA. The [place]ridge grade is January 2010 left apex microscopic focus [place] 3+3 . March 2011 negative biopsy April 2012 left apex Masoud 3+3 one core 5% September 2014 Masoud 3+3 2 cores middle left 20% Volume 95 cc. September 2015 TURP Gl 3+4 in tissue 35%. TNM Classification of Malignant Tumours (TNM) T1a. The D'Kael (NCCN) risk category is Intermediate Risk (PSA 10-20, Gl 7, T2). Initial therapy included Primary treatment, Deferred Therapy (active surveillance) Additional treatment - recommend radiation Sep 2015 start bicalutamide, November 23 2015 - GnRH shot Additional treatment Mar 2016 - stopped oxybutinin and bicalutamide , Additional treatment completed radiation April 2016 , Additional treatment, 12/05 Observation - off 5AR. Recent labs included a PSA (prostate-specific antigen) October 2009 6.7, December 2009 7.0, September 2010 8.8, in February 2011 11, March 2012 19.5 finasteride started, November 2012 8.9, April 2014 10.6, April 2015 13.5 - bicalutamide started Oct 2015 4.25 July 2016 < 0.1, 12/05 , a PSA (prostate-specific antigen), < 0.1, a testosterone 56 04/08 , a PSA (prostate-specific antigen), < 0.1, a testosterone 111, 08/06 , a PSA (prostate-specific antigen) .2, , a testosterone 124, 12/06 PSA 0.3 T 362 04/09 PSA 0.3, T 270, 09/06 PSA 0.5 T 175 03/10 PSA 0.5 T 477, 07/08 PSA 0.5 T 560, 02/07 PSA 0.4 - 08/09 PSA 0.5, T 730, 04/12 P 0.6, T 260, 10/10 P 0.6 T 212, 10/11 P 0.3 T 279. Recent imaging included an MRI (magnetic resonance imaging) May 2015 , showing prostatic mass(es) hyperpalsia vs tumor, no evidence of extracapsular spread, I have reviewed the images - Sep 2015 , a bone scan NAD. Associated conditions erectile dysfunction Yes rectal urgency Yes Occasional Therapeutic plan: Remain on T therapy. Current symptoms include Overactive bladder July 2020 trial Flomax - failed prior therapy oxybuytin, vesicare Hypogonadism T did not recover after radiation does response to AndroGel 2 doses Obesity PFSH Medical History Cerebral microvascular disease Migraine without aura Recurrent urinary tract infection Prostatitis OA (osteoarthritis) Sleep apnea Hyperlipidemia GERD (gastroesophageal reflux disease) Chronic back pain Hypothyroidism Acute bilateral low back pain without sciatica Hypogonadism in male Dysuria Nocturia Elevated PSA BPH (benign prostatic hyperplasia) Erectile dysfunction Prostate cancer Surgical History History of prostate surgery Hx of arthroscopy of knee Hx of prostate biopsy Hx of hernia repair Social History Patient Tobacco Use Status: Former Tobacco user Review of Systems Const Reports as per HPI Eyes Reports no additional complaints ENT Reports no additional complaints Card Reports as per HPI Resp Reports no additional complaints GI Reports as per HPI Reports as per HPI Musc Reports as per HPI Neuro Reports no additional complaints Psych Reports no additional complaints Endo Reports no additional complaints Nabor/Lymph Reports no additional complaints Aller/Immun Reports no additional complaints Physical Exam Const General: cooperative, healthy appearing, comfortable, no acute distress, well developed, alert and awake Nutritional Appearance: overweight Orientation/consciousness: patient oriented x3 Limitations: ambulation with cane HEENT Head: Yes normal to inspection, Yes normocephalic and Yes atraumatic Ears: hearing grossly normal bilaterally Eyes General: appearance normal, both eyes and all related structures Neck Neck: Yes normal visual inspection Chest Chest palpation & inspection: normal inspection of the chest Resp Effort & Inspection: normal respiratory effort and able to speak in complete sentences Cardio Rate: regular rate GI Inspection: Yes normal to inspection General: Yes no CVA tenderness Back/Spine/Pelvis Back: no CVA tenderness Skin General skin exam: no rashes or lesions noted Neuro General: patient oriented x3 Extrem General: Yes normal to inspection Psych Appearance: grossly normal and well kempt Mental Status: mental status grossly normal Speech and movement: Clear speech present Affect: normal affect Attitude: cooperative Thought process: Normal thought process present Thought content: Normal thought content present Insight: Fair insight present (Psych) Judgement: Fair judgement present (Psych) Results AMB Urinalysis, Automated UA Leukoctes 0 Skinny/uL Last Edit by MONIKA Schneider on 12/29/24 12:04 UA Nitrite Negative Last Edit by MONIKA Schneider on 12/29/24 12:04 UA Urobilinogen 0.2 mg/dL Last Edit by MONIKA Schneider on 12/29/24 12:04 UA Protein 15 mg/dL Last Edit by Micaela Bronson [facility] on 12/29/24 12:04 UA pH 6.0 Last Edit by Micaela Bronson, [facility] on 12/29/24 12:04 UA Blood 0 Antonio/uL Last Edit by Micaela Dobson, [facility] on 12/29/24 12:04 UA Specific Charlotte 1.020 Last Edit by Micaela Dobson, [facility] on 12/29/24 12:0 4 UA Ketone Negative Last Edit by Micaela Bronson [facility] on 12/29/24 12:04 UA Bilirubin 0 mg/dL Last Edit by Micaela Dobson, [facility] on 12/29/24 12:04 UA Glucose 0 mg/dL Last Edit by Micaela Bronson [facility] on 12/29/24 12:04 Results Reviewed Results Reviewed: Laboratory Last Values Urine pH (Auto) 6.0 12/29/24 12:02 Specific Charlotte (Auto) 1.020 12/29/24 12:02 Urine Protein (Auto) 15 mg/dL 12/29/24 12:02 Glucose (UA)(Auto) 0 mg/dL 12/29/24 12:02 Urine Ketones (Auto) Negative 12/29/24 12:02 Urine Blood (Auto) 0 Antonio/uL 12/29/24 12:02 Urine Nitrite (Auto) Negative 12/29/24 12:02 Urine Bilirubin (Auto) 0 mg/dL 12/29/24 12:02 Urine Urobilinogen (Auto) 0.2 mg/dL 12/29/24 12:02 Leukocyte Esterase (Auto) 0 Skinny/uL 12/29/24 12:02 Assessment & Plan Assessment & Plan (1) Prostate cancer: Code(s): C61 - Malignant neoplasm of prostate Category: Medical (2) Hypogonadism in male: Code(s): E29.1 - Testicular hypofunction Category: Medical (3) Urinary urgency: Code(s): R39.15 - Urgency of urination Category: Medical (4) Radiation cystitis: Code(s): N30.40 - Irradiation cystitis without hematuria Category: Medical Plan In office urinalysis results reviewed the patient today; as noted above. Continue testosterone and Myrbetriq as prescribed; refills provided. Recent testosterone, free testosterone, hemoglobin, hematocrit, and PSA results reviewed with the patient today; as noted above. He reports be happy with current voiding parameters. We discussed importance of taking medications as prescribed specifically testosterone therapy; will not increase testosterone at this time as patient does report in consistency and compliance. Will continue with surveillance monitoring. Will obtain CBC, PSA, and testosterone free and total in 3 months Follow-up in 3 months with labs to be completed prior; or sooner with any issues, concerns, and or questions. Orders: Orders Testosterone, Total 3 Months C61 - Malignant neoplasm of prostate, E29.1 - Testicular hypofunction Complete Blood Count no Diff 3 Months E29.1 - Testicular hypofunction Prostate Specific Antigen 3 Months C61 - Malignant neoplasm of prostate, E29.1 - Testicular hypofunction Medications: Refilled testosterone apply 1 packet daily 50 mg transdermal DAILY 150 grams 5RF 30 days E29.1 - Testicular hypofunction Patient Instructions: The patient had an opportunity to ask questions regarding the treatment plan. All questions were answered. Physical exam, labs, and imaging were discussed and reviewed in detail. As well as risks, benefits, and discussion of treatment choices. No major barriers to understanding were identified. The patient expressed understanding and agreement with the above treatment plan. The patient was made aware they should contact our office by phone for worsening of their current condition, the appearance of new symptoms, or with any questions or concerns. Compliance is encouraged with any medications and follow up testing that is ordered. It is a privilege to be allowed the opportunity to participate in? your urological care.? Again, if you have any questions or concerns If you have any questions or concerns please do not hesitate to contact me. The office is [phone]. This note is constructed using voice recognition software. While every effort has been made to ensure accuracy college or university registrar errors may have been included. Yours sincerely, FRANCIA Rodriguez Coding Level of Care Code Est Pt Level 3 (75285) Complex EM visit Add On G2211 Diagnoses Prostate cancer C61 Hypogonadism in male E29.1 Urinary urgency R39.15 Radiation cystitis N30.40
--- OUTSIDE RECORDS SUMMARY | 2024-12-29 14:19 | XMS_ITS | Clinical Summary ---
Author Organization [facility] Address [address] [place] [address] Care Team Providers Care Desk Pen Set Assembler Name Role Phone Allan Allen Primary Care Provider [phone] Allergies Active Allergy Reactions Criticality Noted Date [...] SMARTSI Tablet(s) By Mouth Daily 4 Active cycloSPORINE (RESTASIS) 0.05% ophthalmic emulsion Instill 1 drop into both eyes 2 times a day. 180 each 3 5 Active Active Problems Problem Noted Date Diagnosed [...] reflux 03/14/2012 Panic disorder with agoraphobia 03/14/2012 Encounters Date Type Department Care Team Description 12/17/2024 1:00 PM EDT Office Visit [facility] Op[facility] [address] [place] [address] Erin Arreaga MD Keratoconjunctivitis sicca, not specified as Sjogren's, bilateral (Primary Dx); OAG (open angle glaucoma) suspect, low risk, bilateral; Nuclear sclerosis of both eyes; Cortical age-related cataract, both eyes; Blepharitis of both upper and lower eyelid of right eye, unspecified type; Presbyopia of both eyes from Last 3 Months Immunizations Immunization Administration Dates Next Due Influenza, [...] Value Date Recorded Sex Assigned at Male 09/11/2024 12:58 PM EDT Legal Sex Male 12:09 AM EDT Gender Identity Not on file Sexual Orientation Not on file Last Filed Vital Signs Vital Sign Reading Time Taken Comments Blood Pressure 137/72 10/27/2020 2:45 PM EDT Pulse 76 10/27/2020 2:45 PM EDT Temperature 36.2 C (97.2 F) 09/07/2014 10:38 AM EDT Respiratory Rate - - Oxygen Saturation 95% 07/02/2014 1:36 PM EDT Inhaled Oxygen Concentration - - Weight 117 kg (258 lb) 10/27/2020 2:45 PM EDT Height 172.7 cm (5' 8 ) 10/27/2020 2:45 PM EDT Body Mass Index 39.23 10/27/2020 2:45 PM EDT Plan of Treatment Upcoming Encounters Date Type Department Care Team (Late st Contact Info) Description 01/27/2025 12:30 PM EST Clinical Support [facility] [address] [place] [phone] 03/24/2025 10:15 AM EST Office Visit [facility] Ophthalmology [address] [place] [phone] Erin Arreaga MD [address] [place] [phone] Health Maintenance Due Date Last Done Comments [...] - Risk 60-74 years 1-dose series) 2011 Alcohol/Substance Use Screening 02/20/2024 Depression Screening and Follow-Up 02/20/2024 Fall Risk Screening 02/20/2024 Health Care Proxy Review 02/20/2024 Social Drivers of Health Annual Screening 02/20/2024 Influenza Vaccine (#1) 2024 12/08/2013 DTaP,Tdap,and Td Vaccines (4 - Td or Tdap) 03/15/2028 03/15/2018, 08/11/2005, 08/10/2005 Abdominal Aortic Aneurysm (AAA) Screening Completed 06/15/2024 Hepatitis B Vaccines Aged Out No long er eligible based on patient's age to complete this topic Insurance HSNO/FREE CARE MEDICARE [facility] Care Teams Desk Pen Set Assembler Relationship Specialty Start Date End Date Allan Allen [address] [place] [id number] PCP - General Internal Medicine 09/09/20
--- OUTSIDE RECORDS SUMMARY | 2024-12-29 14:19 | XMS_ITS | Continuity of Care Document ---
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 [email or web address] Not available 11/04/2024 15:16:19 Plan of Treatment Reminders Order Date Submit Date Provider Last Modified By Organization Details Last Modified Time Details Appointments None record ed. Lab None record ed. Referral None record ed. Procedures None record ed. Surgeries None record ed. Imaging None record ed. Medication Orders None record ed. Patient TargetsNo targets recorded. Patient InstructionsNo instructions recorded. Reason for Referral None Reported. Results Created Date Observation Date Name Description Value Unit Range Abnormal Flag Note LastModifiedBy Organization Detail LastModifiedTime 11/12/1911/04/2024 audio gram No observ ation record ed. [email or web address] Not Available 2024 12:20:39 Result Notes None recorded. 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; Note: Date Diagnosed : 5 1:49 PM (D11.0) Not Available [facility] 4 03:16:45 Sensorine ural hearing loss of bilateral ears 787039160 Active 2020 Sensorine ural hearing loss, bilateral ; Note: Date Diagnosed : 1 12:07 PM (H90.3) Not Available [facility] 4 03:16:46 Abnormal auditory perceptio n 21861203 Active 2020 Other abnormal auditory perceptio ns, right ear; Note: Date Diagnosed : 1 12:10 PM (H93.291) Not Available [facility] 4 03:16:46 Impacted cerumen in left ear 17354930164 87659 Active 2021 Impacted cerumen, left ear; Note: Date Diagnosed : 06/10/2021 9:58 AM (H61.22) Not Available [facility] 4 03:16:45 Xerostomi a 19659287 Active 2021 Dry mouth, unspecifi ed; Note: Date Diagnosed : 12/27/2021 4:56 PM (R68.2) Not Available [facility] 4 03:16:45 Obstructi ve sleep apnea syndrome 32233093 Active 2021 Obstructi ve sleep apnea (adult) (pediatri c); Note: Date Diagnosed : 12/27/2021 4:56 PM (G47.33) RICKY GARCIA MD [address] [facility],[place] [address], [place], [address] , [place] [facility] 5 13:23:24 Sensorine ural hearing loss of bilateral ears 806926954 Active 2024 RICKY GARCIA MD [address] [place] [address],[place] [address], [place], [address] , [place] - [facility] 5 13:25:50 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 - [facility] 13:26:49 Problem Notes None recorded. Procedures Surgical History Date Name Laterality Status Provider Name and Address Organization Details Recorded Time 11/05/19 25 Comp Audio with Tymps - 99537 & 97481 completed Kathrin BONILLA [address] [facility],[place] [address], [place], [address], [facility] 11/04/2024 15:24:05 08/16/19 25 Fiberoptic Laryngoscopy (Comprehensive) completed RICKY GARCIA MD [address] [facility],[place] [address], [place], [address], [facility] - [facility] 08/20/2024 08:05:42 Imaging Results None recorded. Procedure Notes None recorded. Medical Equipment None Reported. Allergies No known drug allergies Medications Name Sig Start Date Stop Date Status Note LastModified by Organization Details LastModified Time Prescript ion - Prior Authoriza tion Request active Script Copy/Mirella or Auth^Scr ipt Copy/Mirella or Auth_ [id number] Not Available Not Available Not Available carisopro dol 350 mg tablet active Not Available Not Available No t Available celecoxib 200 mg capsule 12/27 completed Medicati on ID: [id number] B rand Name: celecoxi b Send Method: E-Prescr ibed Sub s Allowed: subs OK Medic ationGen ericName : celecoxi b Not Available Not Available Not Available clotrimaz ole 10 mg wilbur Hold 1 wilbur in mouth three times a day 08/15 completed Medicati on ID: [id number] D uration Value: 14 Brand Name: clotrima zole Sen d Method: E-Prescr ibed Sub s Allowed: subs OK Medic ationGen ericName : clotrima zole Not Available Not Available Not Available nystatin 100,000 unit/mL oral suspensio n by mouth 08/15 completed Medicati on ID: [id number] P olivier cole By Name: Monica Reece nd Name: nystatin Send Method: E-Prescr ibed Sub s Allowed: subs OK Speci al Instruct ion: 5 ml swish and spit four times daily x 2-4 weeks Me dication GenericN hitesh: nystatin Not Available Not Available Not Available oxybutyni n chloride ER 15 mg tablet,ex tended release 24 hr 12/27 completed Medicati on ID: [id number] B rand Name: oxybutyn in chloride Send Method: E-Prescr ibed Sub s Allowed: subs OK Medic ationGen ericName : oxybutyn in chloride Not Available Not Available Not Available verapamil 40 mg tablet TAKE 1 TABLET BY MOUTH TWICE DAILY 08/15 completed Not Available Not Available Not Available divalproe x 250 mg tablet,de layed release TAKE 1 TABLET BY MOUTH TWICE DAILY active Not Available Not Available No t Available oxybutyni n chloride ER 10 mg tablet,ex tended release 24 hr 06/10 completed Medicati on ID: [id number] B rand Name: oxybutyn in chloride Send Method: E-Prescr ibed Sub s Allowed: subs OK Medic ationGen ericName : oxybutyn in chloride Not Available Not Available Not Available ibuprofen 800 mg tablet 04/23 completed Medicati on ID: [id number] D uration Value: 30 Brand Name: ibuprofe [...] mg tablet 08/15 completed Medicati on ID: [id number] B rand Name: sulfamet hoxazole -trimeth oprim Se nd Method: E-Prescr ibed Sub s Allowed: subs OK Medic ationGen ericName : sulfamet hoxazole -trimeth oprim Not Available Not Available Not Available meloxicam 15 mg tablet 08/15 completed Not Available Not Available Not Available prednison e 20 mg tablet 12/27 completed Medicati on ID: [id number] B rand Name: predniso ne Send Method: E-Prescr ibed Sub s Allowed: subs OK Medic ationGen ericName : predniso ne Not Available Not Available Not Available sertralin e 100 mg tablet TAKE 2 TABLETS BY MOUTH DAILY active Not Available Not Available No t Available clonazepa m 1 mg tablet 04/23 completed Medicati on ID: [id number] D uration Value: 30 Brand Name: clonazep [...] capsule,d elayed release active Medicati on ID: [id number] B rand Name: omeprazo le Send Method: [...] mg capsule 12/27 completed Medicati on ID: [id number] B rand Name: tamsulos in Send Method: E-Prescr ibed Sub s Allowed: subs OK Speci al Instruct ion: TAKE 1 CAPSULE BY MOUTH AT BEDTIME Medicati onGeneri cName: tamsulos in Not Available Not Available Not Available Synthroid 25 mcg tablet 04/23 completed Medicati on ID: [id number] D uration Value: 30 Brand Name: Synthroi d Send Method: E-Prescr ibed Sub s Allowed: subs OK Medic ationGen ericName : Synthroi d Not Available Not Available Not Available gabapenti n 300 mg capsule 08/15 completed Not Available Not Available Not Available Synthroid 112 mcg tablet 12/27 completed Medicati on ID: [id number] B rand Name: Synthroi d Send Method: [...] mg capsule 11/29 completed Medicati on ID: [id number] B rand Name: celecoxi b Send Method: E-Prescr ibed Sub s Allowed: subs OK Medic ationGen ericName : celecoxi b Not Available Not Available Not Available fluticaso ne propionat e 50 mcg/actua tion nasal spray,skinny pension SPRAY 1 SPRAY BY NASAL ROUTE TWICE A DAY active Not Available Not Available No t Available sertralin e 50 mg tablet TAKE 1 TABLET BY MOUTH EVERY DAY 08/15 completed Not Available Not Available Not Available terazosin 10 mg capsule 04/23 completed Medicati on ID: [id number] D uration Value: 90 Brand Name: terazosi n Send Method: E-Prescr ibed Sub s Allowed: subs OK Medic ationGen ericName : terazosi n Not Available Not Available Not Available finasteri de 5 mg tablet 04/23 completed Medicati on ID: [id number] D uration Value: 90 Brand Name: finaster [...] as directed 08/15 completed Medicati on ID: [id number] D uration Value: 30 Brand Name: fluocino lone acetonid e oil Send Method: E-Prescr ibed [...] Not Available Not Available No t Available Suprep Bowel Prep Kit 17.5 gram-3.13 gram-1.6 gram oral solution MIX AND DRINK DIRECTED active Not Available Not Available No t Available Myrbetriq 25 mg tablet,ex tended release TAKE 1 TABLET BY MOUTH DAILY active Not Available Not Available No t Available Myrbetriq 50 mg tablet,ex tended release TAKE 1 TABLET BY MOUTH DAILY. INCREASE IN DOSE active Not Available Not Available No t Available Vitals Date Recorded Body height Body mass index (BMI) Body weight Provider Name and Address Organization Details Last Updated DateTime 11/04/2024 177.8 cm 37.6 kg/m2 231988.2 g Jorge Simental [place] - [facility] 11/04/2024 14:30:51 Social History None recorded. Functional Status None recorded. Mental Status None recorded. Family History Nothing Reported. Medical History No medical history recorded. Past Encounters Encounter ID Performer Location Encounter Start Date Encounter Closed Date Diagnosis/Indication Diagnosis SNOMED-CT Code Diagnosis ICD10 Code Diagnosis IMO Codes Diagnosis Note [id number] RICKY GARCIA MD [facility] on [address] [place] [id number] 11/04/2024 14:27:32 11/04/2024 15:35:43 Sensorineural hearing loss of bilateral ears [id number] H90.3 [id number] Audiologic al evaluation results:Ri ght ear:Mild sloping to profound sensorineu ral hearing loss with fair word recognitio n.Left ear:Mild sloping to profound sensorineu ral hearing loss with fair word recognitio n. Tympanomet ry:Right Ear:Type ALeft Ear:Type A Burning mo uth syndrome 206903967 K14.6 133020 Obstructiv e sleep apnea syndrome 78466176 G47.33 [id number] Kathrin BONILLA [facility] on [address] [place] [id number] 11/04/2024 15:16:06 11/04/2024 15:50:49 Sensorineural hearing loss of bilateral ears 138417189 H90.3 [id number] Audiologic al evaluation results:Ri ght ear:Mild sloping to profound sensorineu ral hearing loss with fair word recognitio n.Left ear:Mild sloping to profound sensorineu ral hearing loss with fair word recognitio n. Tympanomet ry:Right Ear:Type ALeft Ear:Type A Health Concerns Section Related Observation LastModified by Organization Detai ls LastModified Time None Recorded Concern Status LastModified by Organization Details LastModified Time None Recorded Payers Encounter Date Sequence Insurance Name Policy Number Policy Brady Covered Member ID Brady Member ID Guarantor Name 11/04/2024 2 [place] [facility] Ralph Rodríguez [id number] Ralph Rodríguez 11/04/2024 1 [place] B-[place]: [employer] Ralph Rodríguez [id number] Ralph Rodríguez Notes Date Note Type Note Provider Name and Address Organization Details Recorded Time 11/04/2024 text/html Audiological Evaluation HPIReported by PatientHearing LossFor hearing loss perceived, patient reportshearing loss in both ears (no differences noted between ears).Use of amplification or other hearing devicesFor use of amplification or other hearing devices, patient reportshearing aid use in both ears. Kathrin BONILLA [address] [place] [address],[facility] [address], [place], [address], [place] - [facility] [place] 11/04/2024 15:28:51 11/04/2024 text/html 74 yo M here for hearing test Seeing a neurologist, getting recurrent TIA, seeing specialist for what sounds like [place] syndrome has not had sleep study MEDRANO 4 years oldright MEDRANO not working RICKY GARCIA MD [address] [facility] [address], [place], [address], [place] - [facility] 11/08/2024 10:02:46
--- OUTSIDE RECORDS SUMMARY | 2024-12-29 14:19 | XMS_ITS | Data Portability ---
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 Since his last visit, he has booked an appointment to see a specialist in [place]. Based on his description of his imaging findings, it seems he may have [place] syndrome and be a candidate for surgical intervention. He has had multiple imaging studies for recurrent TIAs. He is hoping this may help with his burning mouth. Previous lab work showed positive GLORIA which is nonspecific. Audiometric testing today showed mild to profound hearing loss bilaterally. I gave him a copy of his hearing test today. At his last visit, we ordered sleep study but he has not scheduled this yet. [email or web address] Not available 11/08/2024 10:02:15 11/04/2024 11/04/2024 Follow up with referring provider. [email or web address] Not available 11/04/2024 15:16:19 Plan of Treatment Reminders Order Date Submit Date Provider Last Modified By Organization Details Last Modified Time Details Appointments None recorde d. Lab sjogren antibod y panel (ssa, ssb, ro, la), serum 2024 025 GRACE [facility] (Centralized Electronic Ordering - All Locations), Patient Can Go To The Location Of Their Choice, [id number] 20:16:49 zinc, serum or plasma 2024 025 [facility] (Centralized Electronic Ordering - All Locations), Patient Can Go To The Location Of Their Choice, 20:16:51 GLORIA + rf (antinu clear antibod ies + rheumat oid factor) , quantit ative, serum 2024 025 [facility] (Centralized Electronic Ordering - All Locations), Patient Can Go To The Location Of Their Choice, 20:16:50 C-react tanya protein , quantit ative, serum or plasma 2024 025 [email or web address] [facility] (Centralized Electronic Ordering - All Locations), Patient Can Go To The Location Of Their Choice, 08:57:52 ESR (erythr ocyte sedimen tation rate), blood 2024 025 [facility] (Centralized Electronic Ordering - All Locations), Patient Can Go To The Location Of Their Choice, 20:16:51 vitamin B12 + folate, serum or blood 2024 025 [place] [facility] (Centralized Electronic Ordering - All Locations), Patient Can Go To The Location Of Their Choice, 20:16:49 Referral None recorde d. Procedures polysom nograph y, diagnos tic (PROC) - in lab 2024 025 [facility] ([facility]), [address] [place] [address], [address], 13:15:31 Surgeries None recorde d. Imaging None recorde d. Medication Orders None recorde d. Patient TargetsNo targets recorded. Patient InstructionsNo instructions recorded. Reason for Referral None Reported. Results Created Date Observation Date Name Description Value Unit Range Abnormal Flag Note LastModifiedBy Organization Detail LastModifiedTime 08/22/1908/22/2024 VITAM IN B12+F OLATE vitamin B12 342 pg/mL 232-12 45 normal Not Available [facility] ([facility]) [address] [facility], [place], [address], 08/30/2024 20:16:49 08/22/19 25 08/22/2024 VITAM IN B12+F OLATE folate (folic acid), serum 10.4 NG/mL >3.0 normal A serum folat e brandon ntrat ion of less than 3.1 ng/mL is consi dered to repre sent clini shantelle defic iency . Not Available [facility] ([facility]) [address] [place], [address], 08/30/2024 20:16:49 08/22/19 25 08/23/2024 VITAM IN B12+F OLATE homocyst(E)i ne 8.5 umol/ L 0.0-19 .2 Not Available [facility] ([facility]) [address] [place], [address], 08/30/2024 20:16:49 08/22/19 25 08/30/2024 VITAM IN B12+F OLATE methylmaloni c acid, serum 196 nmol/ L 0-378 Not Available [facility] ([facility]) [address] [place], [address], 08/30/2024 20:16:49 08/22/19 25 08/23/2024 SJOGR EN'S AB, ANTI- SS-A/ -SS-B sjogren's anti-ss-A <0.2 ai 0.0-0. 9 Not Available [facility] ([facility]) [address] [place], [address], 08/30/2024 20:16:49 08/22/19 25 08/23/2024 SJOGR EN'S AB, ANTI- SS-A/ -SS-B sjogren's anti-ss-B <0.2 ai 0.0-0. 9 Not Available [facility] ([facility]) [address] [place], [address], 08/30/2024 20:16:49 08/22/19 25 08/22/2024 GLORIA+R F QN rheumatoid factor (rf) <10.0 IU/mL <14.0 Not Available [facility] ([facility]) [address] [facility], [place], [address], 08/30/2024 20:16:50 08/22/19 25 08/23/2024 GLORIA+R F QN GLORIA direct Positi ve negati ve abnormal Not Available [facility] ([facility]) [address] [facility], [place], [address], 08/30/2024 20:16:50 08/22/19 25 08/22/2024 SEDIM ENTAT ION RATE- WESTE RGREN sedimentatio n rate-westerg hermilo 13 mm/HR 0-30 normal Not Available [facility] ([facility]) [address] [facility], [place], [address], 08/30/2024 20:16:50 08/22/19 25 08/24/2024 ZINC, PLASM A OR SERUM zinc, plasma or serum 69 ug/dL 44-115 normal Detec tion Limit = 5 Not Available [facility] ([facility]) [address] [facility], [place], [address], 08/30/2024 20:16:51 11/12/19 25 11/04/2024 audio gram No observ ation record ed. [email or web address] Not Available 2024 12:20:39 Result Notes None recorded. 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; Note: Date Diagnosed : 5 1:49 PM (D11.0) Not Available [facility] 4 03:16:45 Sensorine ural hearing loss of bilateral ears 711193475 Active 2020 Sensorine ural hearing loss, bilateral ; Note: Date Diagnosed : 1 12:07 PM (H90.3) Not Available [facility] 4 03:16:46 Abnormal auditory perceptio n 21813230 Active 2020 Other abnormal auditory perceptio ns, right ear; Note: Date Diagnosed : 1 12:10 PM (H93.291) Not Available [facility] 4 03:16:46 Impacted cerumen in left ear 83775878343 84634 Active 2021 Impacted cerumen, left ear; Note: Date Diagnosed : 06/10/2021 9:58 AM (H61.22) Not Available [facility] 4 03:16:45 Xerostomi a 66554939 Active 2021 Dry mouth, unspecifi ed; Note: Date Diagnosed : 12/27/2021 4:56 PM (R68.2) Not Available [facility] 4 03:16:45 Obstructi ve sleep apnea syndrome 63236014 Active 2021 Obstructi ve sleep apnea (adult) (pediatri c); Note: Date Diagnosed : 12/27/2021 4:56 PM (G47.33) RICKY GARCIA MD [address] [place] [address], [place], [address] , [place] - [facility] 5 13:23:24 Sensorine ural hearing loss of bilateral ears 085020455 Active 2024 RICKY GARCIA MD [address] [place] [address], [place], [address] , [place] - [facility] 5 13:25:50 Burning mouth syndrome 247170330 Active 2024 RICKY GARCIA MD [address] [facility],[place] [address], [place], [address] , [facility] 13:26:49 Problem Notes None recorded. Procedures Surgical History Date Name Laterality Status Provider Name and Address Organization Details Recorded Time 11/05/19 25 Comp Audio with Tymps - 99132 & 18770 completed Kathrin BONILLA [address] [facility],[place] [address], [place], [address], [facility] 11/04/2024 15:24:05 08/16/19 25 Fiberoptic Laryngoscopy (Comprehensive) completed RICKY GARCIA MD [address] [facility],[place] [address], [place], [address], [facility] 08/20/2024 08:05:42 Imaging Results None recorded. Procedure Notes None recorded. Medical Equipment None Reported. Allergies No known drug allergies Medications Name Sig Start Date Stop Date Status Note LastModified by Organization Details LastModified Time Prescript ion - Prior Authoriza tion Request active Script Copy/Mirella or Auth^Scr ipt Copy/Mirella or Auth_202 23031 Not Available Not Available Not Available carisopro dol 350 mg tablet active Not Available Not Available No t Available celecoxib 200 mg capsule 12/27 completed Medicati on ID: [id number] B rand Name: celecoxi b Send Method: E-Prescr ibed Sub s Allowed: subs OK Medic ationGen ericName : celecoxi b Not Available Not Available Not Available clotrimaz ole 10 mg wilbur Hold 1 wilbur in mouth three times a day 08/15 completed Medicati on ID: [id number] D uration Value: 14 Brand Name: clotrima zole Sen d Method: E-Prescr ibed Sub s Allowed: subs OK Medic ationGen ericName : clotrima zole Not Available Not Available Not Available nystatin 100,000 unit/mL oral suspensio n by mouth 08/15 completed Medicati on ID: [id number] P solorigeorgette d By Name: Monica Reece nd Name: nystatin Send Method: E-Prescr ibed Sub s Allowed: subs OK Speci al Instruct ion: 5 ml swish and spit four times daily x 2-4 weeks Me dication GenericN hitesh: nystatin Not Available Not Available Not Available oxybutyni n chloride ER 15 mg tablet,ex tended release 24 hr 12/27 completed Medicati on ID: [id number] B rand Name: oxybutyn in chloride Send [...] 24 hr 06/10 completed Medicati on ID: [id number] B rand Name: oxybutyn in chloride Send Method: E-Prescr ibed Sub s Allowed: subs OK Medic ationGen ericName : oxybutyn in chloride Not Available Not Available Not Available ibuprofen 800 mg tablet 04/23 completed Medicati on ID: [id number] D uration Value: 30 Brand Name: ibuprofe [...] mg tablet 08/15 completed Medicati on ID: [id number] B rand Name: sulfamet hoxazole -trimeth oprim Se nd Method: E-Prescr ibed Sub s Allowed: subs OK Medic ationGen ericName : sulfamet hoxazole -trimeth oprim Not Available Not Available Not Available meloxicam 15 mg tablet 08/15 completed Not Available Not Available Not Available prednison e 20 mg tablet 12/27 completed Medicati on ID: [id number] B rand Name: predniso ne Send Method: E-Prescr ibed Sub s Allowed: subs OK Medic ationGen ericName : predniso ne Not Available Not Available Not Available sertralin e 100 mg tablet TAKE 2 TABLETS BY MOUTH DAILY active Not Available Not Available No t Available clonazepa m 1 mg tablet 04/23 completed Medicati on ID: [id number] D uration Value: 30 Brand Name: clonazep [...] capsule,d elayed release active Medicati on ID: [id number] B rand Name: omeprazo le Send Method: [...] mg capsule 12/27 completed Medicati on ID: [id number] B rand Name: tamsulos in Send Method: E-Prescr ibed Sub s Allowed: subs OK Speci al Instruct ion: TAKE 1 CAPSULE BY MOUTH AT BEDTIME Medicati onGeneri cName: tamsulos in Not Available Not Available Not Available Synthroid 25 mcg tablet 04/23 completed Medicati on ID: [id number] D uration Value: 30 Brand Name: Synthroi d Send Method: E-Prescr ibed Sub s Allowed: subs OK Medic ationGen ericName : Synthroi d Not Available Not Available Not Available gabapenti n 300 mg capsule 08/15 completed Not Available Not Available Not Available Synthroid 112 mcg tablet 12/27 completed Medicati on ID: [id number] B rand Name: Synthroi d Send Method: [...] mg capsule 11/29 completed Medicati on ID: [id number] B rand Name: celecoxi b Send Method: [...] mg capsule 04/23 completed Medicati on ID: [id number] D uration Value: 90 Brand Name: terazosi n Send Method: E-Prescr ibed Sub s Allowed: subs OK Medic ationGen ericName : terazosi n Not Available Not Available Not Available finasteri de 5 mg tablet 04/23 completed Medicati on ID: [id number] D uration Value: 90 Brand Name: finaster [...] as directed 08/15 completed Medicati on ID: [id number] D uration Value: 30 Brand Name: fluocino [...] Updated DateTime 08/15/2024 177.8 cm 37.6 kg/m2 328685.2 g Bibiana Kwon [facility] 08/15/2024 13:13:00 Date Recorded Body height Body mass index (BMI) Body weight Provider Name and Address Organization Details Last Updated DateTime 11/04/2024 177.8 cm 37.6 kg/m2 745301.2 g Jorge Simental [facility] 11/04/2024 14:30:51 Social History None recorded. Functional Status None recorded. Mental Status None recorded. Family History Nothing Reported. Medical History No medical history recorded. Past Encounters Encounter ID Performer Location Encounter Start Date Encounter Closed Date Diagnosis/Indication Diagnosis SNOMED-CT Code Diagnosis ICD10 Code Diagnosis IMO Codes Diagnosis Note [id number] RICKY GARCIA MD [facility] [address] [place] [address] 08/15/2024 13:04:57 08/15/2024 13:32:18 Obstructive sleep apnea syndrome 14207275 G47.33 [id number] Previously tried CPAP, no PSG to review, questions if candidate for inspire but this would be dependent on PSG findings. Sensorineu ral hearing loss of bilateral ears 266183669 H90.3 [id number] No obstructiv e cerumen or effusion. Will schedule updated audiogram. [place] syndrome 727612586 K14.6 [id number] Will get screening lab work. Could be reaction to the dentures. [id number] RICKY GARCIA MD [facility] on [address] [place] [phone] 11/04/2024 14:27:32 11/04/2024 15:35:43 Sensorineural hearing loss of bilateral ears 046102311 H90.3 04072519 Audiologic al evaluation results:Ri ght ear:Mild sloping to profound sensorineu ral hearing loss with fair word recognitio n.Left ear:Mild sloping to profound sensorineu ral hearing loss with fair word recognitio n. Tympanomet ry:Right Ear:Type ALeft Ear:Type A [place] syndrome 253968147 K14.6 379351 Obstructiv e sleep apnea syndrome 97281506 G47.33 [id number] Kathrni BONILLA [facility] on [address] [place] [phone] 11/04/2024 15:16:06 11/04/2024 15:50:49 Sensorineural hearing loss of bilateral ears 061622744 H90.3 [id number] Audiologic al evaluation results:Ri ght ear:Mild sloping [...] Brady Member ID Guarantor Name 08/15/2024 1 [place] Ralph Meyerssi [id number] Ralph Marinesi 08/15/2024 1 [place] Ralph Marinesi [id number] Ralph Marinesi 11/04/2024 2 [place] Ralph Marinesi [id number] Ralph Marinesi 11/04/2024 1 [place] [employer] Ralph Meyerssi [id number] Ralph Meyerssi Notes Date Note Type Note Provider Name and Address Organization Details Recorded Time 08/15/2024 text/html 74 yo M presents for a few concerns dry mouthconcern for plastic reaction to denturesthyroid levels ok nothing for INOCENCIO currentlyzolpidem helps with sleep swallowing a little trickysome of the foods get stuck in the throat PSG 1.5 years ago, dis not find results at [facility] or [facility], candidate for inspire? RICKY GARCIA MD [address] [place] [address], [phone], [facility] 08/20/2024 08:08:01 11/04/2024 text/html Audiological Evaluation HPIReported by PatientHearing LossFor hearing loss perceived, patient reportshearing loss in both ears (no differences noted between ears).Use of amplification or other hearing devicesFor use of amplification or other hearing devices, patient reportshearing aid use in both ears. Kathrin BONILLA [address], [address], [facility] 11/04/2024 15:28:51 11/04/2024 text/html 74 yo M here for hearing test Seeing a neurologist, getting recurrent TIA, seeing specialist for what sounds like [place] syndrome has not had sleep study MEDRANO 4 years oldright MEDRANO not working RICKY GARCIA MD [address] [place] [address], [place], [address], [place] [facility] 11/08/2024 10:02:46
--- OUTSIDE RECORDS SUMMARY | 2024-12-29 14:19 | XMS_ITS | Continuity of Care Document ---
Author Organization [place] - [facility], [facility] Address [address] [place] [address] Care Team Providers Care Landman Name Role Phone ALLAN ALLEN Referring Provider Assessment Encounter Date Assessment Date Assessment LastModified by Organization Details LastModified Time 11/04/2024 11/04/2024 74-year-old male presents today for evaluation of hearing loss. Since his last visit, he has booked an appointment to see a specialist in [place]. Based on his description of his imaging findings, it seems he may have [place] syndrome and be a candidate for surgical [...] this yet. 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; Note: Date Diagnosed : 5 1:49 PM (D11.0) Not Available [facility] 4 03:16:45 Sensorine ural hearing loss of bilateral ears 247211255 Active 2020 Sensorine ural hearing loss, bilateral ; Note: Date Diagnosed : 1 12:07 PM (H90.3) Not Available [facility] 4 03:16:46 Abnormal auditory perceptio n 32522677 Active 2020 Other abnormal auditory perceptio ns, right ear; Note: Date Diagnosed : 1 12:10 PM (H93.291) Not Available [facility] 4 03:16:46 Impacted cerumen in left ear 20062454204 82644 Active 2021 Impacted cerumen, left ear; Note: Date Diagnosed : 06/10/2021 9:58 AM (H61.22) Not Available [facility] 4 03:16:45 Xerostomi a 35965727 Active 2021 Dry mouth, unspecifi ed; Note: Date Diagnosed : 12/27/2021 4:56 PM (R68.2) Not Available [facility] 4 03:16:45 Obstructi ve sleep apnea syndrome 99123773 Active 2021 Obstructi ve sleep apnea (adult) (pediatri c); Note: Date Diagnosed : 12/27/2021 4:56 PM (G47.33) RICKY GARCIA MD [address] [facility],[place] [address], [place], [address] , [facility] - [facility] [place] 5 13:23:24 Sensorine ural hearing loss of bilateral ears 520776381 Active 2024 RICKY GARCIA MD [address] [facility],[place] [address], [place], [address] , [facility] - [facility] [place] 5 13:25:50 Burning mouth syndrome 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 Procedures Surgical History Date Name Laterality Status Provider Name and Address Organization Details Recorded Time 11/05/19 25 Comp Audio with Tymps - 81271 & 89698 completed Kathrin BONILLA [address] [facility],[place] [address], [place], [address], [facility] - [facility] 11/04/2024 15:24:05 08/16/19 25 Fiberoptic Laryngoscopy (Comprehensive) completed RICKY GARCIA MD [address] [facility],[place] [address], [place], [address], [facility] 08/20/2024 08:05:42 Imaging Results None recorded. Procedure Notes None recorded. Medical Equipment None Reported. Allergies No known drug allergies Medications Name Sig Start Date Stop Date Status Note LastModified by Organization Details LastModified Time Prescript ion - Prior Authoriza tion Request active Script Copy/Mirella or Auth^Scr ipt Copy/Mirella or Auth_202 [id number] Not Available Not Available Not Available carisopro dol 350 mg tablet active Not Available Not Available No t Available celecoxib 200 mg capsule 12/27 completed Medicati on ID: [id number] B rand Name: celecoxi b Send Method: E-Prescr ibed Sub s Allowed: subs OK Medic ationGen ericName : celecoxi b Not Available Not Available Not Available clotrimaz ole 10 mg wilbur Hold 1 wilbur in mouth three times a day 08/15 completed Medicati on ID: [id number] D uration Value: 14 Brand Name: clotriboaz ruiz Hussain d Method: E-Prescr ibed Sub s Allowed: subs OK Medic ationGen ericName : clotrima zole Not Available Not Available Not Available nystatin 100,000 unit/mL oral suspensio n by mouth 08/15 completed Medicati on ID: [id number] Jayson cole By Name: Monica Reece nd Name: nystatin Send Method: E-Prescr ibed Sub s Allowed: subs OK Speci al Instruct ion: 5 ml swish and spit four times daily x 2-4 weeks Me dication GenericN hitesh: nystatin Not Available Not Available Not Available oxybutyni n chloride ER 15 mg tablet,ex tended release 24 hr 12/27 completed Medicati on ID: [id number] B rand Name: oxybutyn in chloride Send [...] 24 hr 06/10 completed Medicati on ID: [id number] B rand Name: oxybutyn in chloride Send Method: E-Prescr ibed Sub s Allowed: subs OK Medic ationGen ericName : oxybutyn in chloride Not Available Not Available Not Available ibuprofen 800 mg tablet 04/23 completed Medicati on ID: [id number] D uration Value: 30 Brand Name: ibuprofe [...] mg tablet 08/15 completed Medicati on ID: [id number] B rand Name: sulfamet hoxazole -trimeth oprim Se nd Method: E-Prescr ibed Sub s Allowed: subs OK Medic ationGen ericName : sulfamet hoxazole -trimeth oprim Not Available Not Available Not Available meloxicam 15 mg tablet 08/15 completed Not Available Not Available Not Available prednison e 20 mg tablet 12/27 completed Medicati on ID: [id number] B rand Name: predniso ne Send Method: E-Prescr ibed Sub s Allowed: subs OK Medic ationGen ericName : predniso ne Not Available Not Available Not Available sertralin e 100 mg tablet TAKE 2 TABLETS BY MOUTH DAILY active Not Available Not Available No t Available clonazepa m 1 mg tablet 04/23 completed Medicati on ID: [id number] D uration Value: 30 Brand Name: clonazep [...] capsule,d elayed release active Medicati on ID: [id number] B rand Name: omeprazo le Send Method: [...] mg capsule 12/27 completed Medicati on ID: [id number] B rand Name: tamsulos in Send Method: E-Prescr ibed Sub s Allowed: subs OK Speci al Instruct ion: TAKE 1 CAPSULE BY MOUTH AT BEDTIME Medicati onGeneri cName: tamsulos in Not Available Not Available Not Available Synthroid 25 mcg tablet 04/23 completed Medicati on ID: [id number] D uration Value: 30 Brand Name: Synthroi d Send Method: E-Prescr ibed Sub s Allowed: subs OK Medic ationGen ericName : Synthroi d Not Available Not Available Not Available gabapenti n 300 mg capsule 08/15 completed Not Available Not Available Not Available Synthroid 112 mcg tablet 12/27 completed Medicati on ID: [id number] B rand Name: Synthroi d Send Method: [...] mg capsule 11/29 completed Medicati on ID: [id number] B rand Name: celecoxi b Send Method: [...] mg capsule 04/23 completed Medicati on ID: [id number] D uration Value: 90 Brand Name: terazosi n Send Method: E-Prescr ibed Sub s Allowed: subs OK Medic ationGen ericName : terazosi n Not Available Not Available Not Available finasteri de 5 mg tablet 04/23 completed Medicati on ID: [id number] D uration Value: 90 Brand Name: finaster [...] as directed 08/15 completed Medicati on ID: [id number] D uration Value: 30 Brand Name: fluocino [...] Updated DateTime 11/04/2024 177.8 cm 37.6 kg/m2 264374.2 g Jorge Simental [place] - [facility] 11/04/2024 14:30:51 Social History None recorded. Functional Status None recorded. Mental Status None recorded. Family History Nothing Reported. Medical History No medical history recorded. Past Encounters Encounter ID Performer Location Encounter Start Date Encounter Closed Date Diagnosis/Indication Diagnosis SNOMED-CT Code Diagnosis ICD10 Code Diagnosis IMO Codes Diagnosis Note [id number] RICKY GARCIA MD [facility] on [address] [place] [phone] 11/04/2024 14:27:32 11/04/2024 15:35:43 Sensorineural hearing loss of bilateral ears [id number] H90.3 [id number] Audiologic al evaluation results:Ri ght ear:Mild sloping to profound sensorineu ral hearing loss with fair word recognitio n.Left ear:Mild sloping to profound sensorineu ral hearing loss with fair word recognitio n. Tympanomet ry:Right Ear:Type ALeft Ear:Type A Burning mo uth syndrome 130550046 K14.6 [id number] Obstructiv e sleep apnea syndrome 79326027 G47.33 [id number] Kathrin BONILLA [facility] on [address] [place] [phone] 11/04/2024 15:16:06 11/04/2024 15:50:49 Sensorineural hearing loss of bilateral ears 172466032 H90.3 [id number] Audiologic al evaluation results:Ri ght ear:Mild sloping [...] Brady Member ID Guarantor Name 11/04/2024 2 [place]: [place] [facility] Ralph Rodríguez [id number] Ralph Rodríguez 11/04/2024 1 MEDICARE B-[place]: [facility] Ralph Rodríguez [id number] Ralph Rodríguez Notes Date Note Type Note Provider Name and Address Organization Details Recorded Time 11/04/2024 text/html Audiological Evaluation HPIReported by PatientHearing LossFor hearing loss perceived, patient reportshearing loss in both ears (no differences noted between ears).Use of amplification or other hearing devicesFor use of amplification or other hearing devices, patient reportshearing aid use in both ears. Kathrin BONILLA [address] [facility],[place] [address], [place], [address], [facility] - [facility] 11/04/2024 15:28:51 11/04/2024 text/html 74 yo M here for hearing test Seeing a neurologist, getting recurrent TIA, seeing specialist for what sounds like [place] syndrome has not had sleep study MEDRANO 4 years oldright MEDRANO not working RICKY GARCIA MD [address] [facility],[place] [address], [place], [address], [place] - [facility] 11/08/2024 10:02:46
--- OUTSIDE RECORDS SUMMARY | 2024-12-29 14:19 | XMS_ITS | Encounter Summary ---
Author Organization [facility] Address [address] [place] [address] Care Team Providers Care Tire Service Technician Name Role Phone Roby Hernández Primary Care Provider [phone] Encounter Details Date Type Department Care Team (Late st Contact Info) Description 06/28/[address] [facility] [address] [place] [address] Hunter Montejo MD [address] [place] [address] Fatigue, unspecified type (Primary Dx); Vision abnormalities; [...] Description 01/27/2025 12:30 PM EST Clinical Support [facility] [address] [place] [address] 03/24/2025 10:15 AM EST Office Visit [facility] [address] [place] [phone] Eirn Arreaga MD [address] [place] [id number] documented as of this encounter Visit Diagnoses Diagnosis Fatigue, unspecified type- Primary Vision abnormalities Unspecified visual loss Palpitation Palpitations SOB (shortness of breath) Shortness of breath documented in this encounter Care Teams Tire Service Technician Relationship Specialty Start Date End Date Roby Hernández [address] [place] [address] PCP - General Internal Medicine 09/09/20 documented as of this encounter
--- OUTSIDE RECORDS SUMMARY | 2024-12-29 14:19 | XMS_ITS | Clinical Summary ---
Author Organization [facility] Address [address] [place] [address] Phone Care Team Providers Care Guest House Manager Name Role Phone Roby Hernández MD Primary Care Provider [phone] Allergies No known active allergies Medications No known medications Encounters Date Type Department Care Team Description 11/20/2024 2:00 PM EDT Office Visit Orthopedic Surgery [facility] [address] [address] Balta Mercado DPM Pain in both feet (Primary Dx); Arthritis of both feet; Hammertoes of both feet; Ingrown left big toenail from Last 3 Months Social History Tobacco Use Types Packs/Day Years [...] Care Team (Late st Contact Info) Description 02/23/2025 10:15 AM EST Office Visit Orthopedic Surgery [facility] [address] [address] Balta Mercado DPM [address] [address] Health Maintenance Due Date Last Done Comments Colorectal Cancer Screening: Colonoscopy 1950 Pneumococcal Vaccine: 50+ Years (1 of 2 - PCV) 05/29/1970 RSV Immunization Adult Patients (1 - Risk 50-74 years 1-dose series) 05/29/2001 Zoster Vaccines (1 of 2) 05/29/2001 Abdominal Aortic Aneurysm (AAA) Screen 01/08/2024 Falls Risk Assessment 01/08/2024 Hepatitis C Screening 01/08/2024 Medicare Annual Wellness Visit 01/08/2024 Social Influencers of Health Screening 01/08/2024 Depression Screening 02/20/2024 COVID-19 Vaccine (1 - 2023-2 5 season) 2024 Influenza Vaccine (#1) 2024 12/08/2013 DTaP,Tdap,and Td Vaccines (4 - Td or Tdap) 03/15/2028 03/15/2018, 08/11/2005, 08/10/2005 Cholesterol Screening (Lipid Panel) 10/08/2029 10/08/2024, 12/17/2023, 09/25/2001 HIB Vaccines Aged Out No [...] mg/dL Blood Venous blood specimen / Unknown us Historical Provider LAB BLOOD ORDERABLES Marilyn l Result from Last 3 Months or Most Recently Relevant to Health Maintenance Insurance MEDICARE MEDICAID - [place] Care Teams Guest House Manager Relationship Specialty Start Date End Date Roby Hernández MD [address] [place] [address] PCP - General Internal Medicine 01/08/24
== END 2024-12-29 12:31 | disposition home or self-care (01) ==
LOC: HO.HUSH 11:55
PROVIDERS: PCP Internal Medicine; Visit Provider Nurse Practitioner Family
DX: C61 Malignant neoplasm of prostate (principal); E29.1 Testicular hypofunction; R39.15 Urgency of urination; N30.40 Irradiation cystitis without hematuria
CPT/HCPCS: 99213; G2211

== ENCOUNTER → 2024-12-29 11:55 | Outpatient (BNVA) | payer MEDICARE, MEDICAID, SELFPAY | PROVIDERS: PCP Internal Medicine; Visit Provider Nurse Practitioner Family | DX: C61 Malignant neoplasm of prostate (principal); E29.1 Testicular hypofunction; R39.15 Urgency of urination; N32.81 Overactive bladder; N30.40 Irradiation cystitis without hematuria | CPT/HCPCS: 99212 ==